=== PATIENT | male | born 1945 | race Caucasian/White ===

== ENCOUNTER 2017-01-10 21:33 | Inpatient (IN) | payer OTHER | END 2017-01-13 13:46 | disposition home or self-care (01) | DRG 308 | LOC: ER 21:33 → EROBS 23:17 → 2N 01-11 00:20 | DX: I48.0 Paroxysmal atrial fibrillation (principal); N17.0 Acute kidney failure with tubular necrosis; D68.59 Other primary thrombophilia; E87.1 Hypo-osmolality and hyponatremia; I25.10 Atherosclerotic heart disease of native coronary artery without angina pectoris; Z96.642 Presence of left artificial hip joint; J44.9 Chronic obstructive pulmonary disease, unspecified; E78.5 Hyperlipidemia, unspecified; M06.9 Rheumatoid arthritis, unspecified; E11.9 Type 2 diabetes mellitus without complications; R04.0 Epistaxis; F17.210 Nicotine dependence, cigarettes, uncomplicated; I95.9 Hypotension, unspecified; E83.42 Hypomagnesemia; Z71.6 Tobacco abuse counseling; Z95.5 Presence of coronary angioplasty implant and graft; Z85.828 Personal history of other malignant neoplasm of skin; Z88.0 Allergy status to penicillin; Z88.8 Allergy status to other drugs, medicaments and biological substances; Z82.49 Family history of ischemic heart disease and other diseases of the circulatory system ==

== ENCOUNTER 2017-08-22 01:20 | Inpatient (IN) | payer OTHER ==
[2017-08-22] VITALS (7 sets, daily range): BP systolic 95–146; BP diastolic 53–87
[~2017-08-22] VITALS: Ht 193 cm; Wt 86.6 kg
--- NOTE | ~2017-08-22 | EKG ---
[address] [address] ELECTROCARDIOGRAM REPORT Name: DOMINICK MAXWELL Room #: 350-P ADM IN M.R.#: [id number] Admission: 08/22/17 Attend Phys: Rigo Ron DO Discharge: Date of : 43 Report #: [id number] THIS REPORT FOR: //name// [facility] ED Test Date: 2017-08-22 Test Time: 01:36:30 Pat Name: DOMINICK MAXWELL Department: Room: 350 Gender: M Recep: MZRIKKI : 1945 Requested By: Tiago Mohamud Order Number: [id number] MD: Tomer Palmer Measurements Intervals [place] Rate: 121 P: 64 NE: 123 QRS: 73 QRSD: 140 T: -23 QT: 335 QTc: 476 Interpretive Statements Sinus tachycardia Probable left atrial enlargement Right bundle branch block Baseline wander in lead(s) V4 Compared to ECG 01/13/2017 06:13:34 Sinus rhythm no longer present Electronically Signed On 08-22-2017 10:59:44 CDT by Tomer Palmer [email or web address] <ELECTRONICALLY SIGNED> By: Tomer Palmer MD 08/22/17 1059 0136 0136 Tomer Palmer MD /EPI
--- NOTE | ~2017-08-22 | HC ---
[facility] [place] [address] CONSULTATION Name: DOMINICK MAXWELL Room #: 350-P ADM IN M.R.#: [id number] Admission: 08/22/17 Attend Phys: Rigo Ron DO Discharge: Date of : 43 Report #: [id number] THIS REPORT FOR: //name// CC: Rigo Almanzar DATE OF SERVICE: 08/22/2017 REASON FOR CONSULTATION: Exacerbation of chronic obstructive pulmonary disease. IMPRESSION: 1. Exacerbation of chronic obstructive pulmonary disease. 2. Question episode of transient bacteremia. 3. Leukocytosis. 4. Lactic acidosis. 5. History of atrial fibrillation. 6. Coronary artery disease. 7. Hypertension. 8. Diabetes. 9. History of tobacco use. PLAN: 1. Pulmonary toilet. 2. Aerosol therapy. 3. Flutter valve. 4. Viral panel. 5. Await cultures. We will follow closely with you. HISTORY OF PRESENT ILLNESS: A 72-year-old male who relates he had been doing well; however, developed episode of cold and chills while went out at the boats. No definite chest pain, slight shortness of breath. He does relate his grandson had cough, cold of recent. He relates he is feeling better today. No nausea or vomiting. ALLERGIES: PENICILLIN AND LIPITOR. PAST SURGICAL HISTORY: Include back surgery, left total knee replacement. MEDICATIONS: Included aspirin, metformin, Spiriva, folic acid, methotrexate, ferrous sulfate, ascorbic acid, glipizide. FAMILY HISTORY: Noncontributory. SOCIAL HISTORY: Positive tobacco, negative ETOH, negative drugs of abuse. [facility] [address] [place] [address] CONSULTATION Name: DOMINICK MAXWELL Room #: 350-P [facility] IN .R.#: [id number] Admission: 08/22/17 Attend Phys: Rigo Ron DO Discharge: Date of : 43 Report #: [id number] REVIEW OF SYSTEMS: Coronary artery disease, paroxysmal atrial fibrillation, positive carotid plaquing, rheumatoid arthritis. PHYSICAL EXAMINATION: VITAL SIGNS: T-max 99.9, pulse 94, respirations 18, BP 146/87, sat 97% on 2 liters. NEUROLOGIC: Alert and oriented. NECK: Negative JVD. LUNGS: Showed mild wheeze. HEART: Regular. ABDOMEN: Bowel sounds present. EXTREMITIES: Showed no clubbing, cyanosis or edema. LABORATORY DATA: White count 13.6, hemoglobin 12.3, platelets 302. Influenza negative. BUN 24, creatinine 1. Albumin 2.6, mag 1.4. ProBNP 339, lactate 3.6. We will follow up closely with you. By: 40 224 Brandon Causey MD /nt
[~2017-08-22 01:20] MED LIST: ACTOS 45 MG45 M1; ALEVE220 M1 PO; ALEVE220 MG PO; AMARYL4 MG PO; ASPIRIN325 PO; CLOPIDOGREL75 MG PO; CYCLOBENZAPRINE10 MG PO; FISH OIL 1,001000 MG PO; FLEXERIL PO; FOLIC ACID 1 MG1 MG PO; GLIPIZIDE 10 MG10 MG PO; GLUCOPHAGE1000 MG PO; HYDROCODON-ACE1 EAC8 PO; HYDROCODON-ACE1 EACH PO; HYDROCODONE-AP1 EAC6 PO; IRON325 PO; LANTUSSOLASTAR SUBQ; LEVAQUIN 500 M500 M2 PO; LOPRESSOR 50 MG50 M1 PO; METHOTREXATE 22.5 MG; MULTIVITAMINS1 EAC7 PO; NAPROSYN500 MG PO; NORCO 10-325 T1 EACH PO; NORCO 5-325 TA1 EACH PO; NORVASC 5 MG TAB5 MG PO; NOVOLIN N100 UNIT/1 SUBQ; PLAVIX 75 MG TA75 M1 PO; PRAVACHOL40 MG PO; PREDNISOLONE 5 M5 MG PO; PROAIR HFA8.5 GM INH; ROBAXIN 750 MG750 M1 PO; SIMVASTATIN40 MG PO; SORINE 80 MG TA80 M1 PO; SPIRIVA; SPIRIVA INH; SYMBICORT80 MCG/4.5 INH; TYLENOL325 MG PO; VITAMIN D1000 UNI1 PO; VITCB500GO PO; ZOFRAN ODT4 MG PO
[2017-08-22 02:16] LABS: ABSOLUTE NEUTROPHILS 12.5 thou/uL (1.4-8.2); BASOPHILS 0.2 % (0.0-2.0); EOSINOPHILS 0.7 % (0.0-3.0); HEMATOCRIT 35.8 % (42.0-52.0); HEMOGLOBIN 12.3 gm/dL (14.0-18.0); LYMPHOCYTES 2.6 % (24.0-44.0); MCH 31.7 pg (26.0-34.0); MCHC 34.4 g/dL (28.0-37.0); MCV 92.2 fL (80.0-100.0); MONOCYTES 4.1 % (1.0-8.0); PLATELET COUNT 302 thou/uL (150-400); POLYS 92.4 % (36.0-66.0); RBC 3.88 mil/uL (4.50-6.00); RDW 15.2 % (10.5-14.5); WBC 13.6 thou/uL (4.0-11.0)
[2017-08-22 02:17] LABS: BE(vivo) -2.6 mmol/L (-2 to +3); HCO3 20.5 mmol/L (22.0-26.0); PCO2 VENOUS 30.8 mmHg (41.0-51.0); PO2 VENOUS 55.7 mmHg (35.0-45.0)
[2017-08-22 02:24] LABS: ANION GAP 12 mmol/L (7-16); BUN 24 mg/dL (7-18); CALCIUM 8.5 mg/dL (8.5-10.1); CHLORIDE 100 mmol/L (98-107); CO2 20 mmol/L (21-32); GLUCOSE 224 mg/dL (74-106); POTASSIUM 3.9 mmol/L (3.5-5.1); SODIUM 132 mmol/L (136-145)
[2017-08-22 02:33] LABS: ALBUMIN 2.6 g/dL (3.4-5.0); MAGNESIUM 1.4 mg/dL (1.8-2.4); SGOT 18 U/L (15-37); SGPT 21 U/L (30-65); TOTAL BILIRUBIN 0.2 mg/dL (<0.1-1.0); TOTAL PROTEIN 7.3 g/dL (6.4-8.2); TROPONIN-I < 0.04 ng/mL (<0.06)
[2017-08-22 14:37] LABS: URINE BILIRUBIN NEGATIVE (Negative); URINE BLOOD TRACE (Negative); URINE CLARITY CLEAR; URINE COLOR YELLOW; URINE GLUCOSE-RANDOM* 3+ (Negative); URINE KETONES NEGATIVE (Negative); URINE LEUKOCYTES-REFLEX NEGATIVE (Negative); URINE NITRITE-REFLEX NEGATIVE (Negative); URINE PROTEIN (DIPSTICK) NEGATIVE (Negative); URINE UROBILINOGEN 0.2 E.U./dl (0.2-1.0)
[2017-08-23] VITALS (7 sets, daily range): BP systolic 119–144; BP diastolic 63–91
[2017-08-23 05:31] LABS: CALCIUM 8.4 mg/dL (8.5-10.1); CREATININE 0.8 mg/dL (0.7-1.3); MAGNESIUM 1.7 mg/dL (1.8-2.4); POTASSIUM 4.3 mmol/L (3.5-5.1)
[2017-08-23 05:49] LABS: HEMATOCRIT 31.5 % (42.0-52.0); HEMOGLOBIN 10.8 gm/dL (14.0-18.0); MCH 31.7 pg (26.0-34.0); MCHC 34.2 g/dL (28.0-37.0); MCV 92.7 fL (80.0-100.0); RBC 3.4 mil/uL (4.50-6.00); RDW 15.3 % (10.5-14.5); WBC 16.6 thou/uL (4.0-11.0)
[2017-08-24 03:50] VITALS: BP 131/76
[2017-08-24 04:40] LABS: ABSOLUTE NEUTROPHILS 12.8 thou/uL (1.4-8.2); BASOPHILS 0.2 % (0.0-2.0); HEMATOCRIT 32.5 % (42.0-52.0); MCH 31.5 pg (26.0-34.0); MCHC 33.8 g/dL (28.0-37.0); MCV 93.2 fL (80.0-100.0); PLATELET COUNT 326 thou/uL (150-400); POLYS 89.8 % (36.0-66.0); RBC 3.49 mil/uL (4.50-6.00); RDW 15.2 % (10.5-14.5); WBC 14.2 thou/uL (4.0-11.0)
[2017-08-24 05:48] LABS: CALCIUM 8.4 mg/dL (8.5-10.1); CREATININE 0.8 mg/dL (0.7-1.3); POTASSIUM 4.2 mmol/L (3.5-5.1)
[2017-08-24 08:21] VITALS: BP 148/86
[2017-08-24] MEDS ORDERED: LEVAQUIN 500 M500 M2 PO (09:12)
[2017-08-24] MEDS ORDERED: MEDROL DOSPAK21 TA1 PO (09:12)
[2017-08-24 12:06] VITALS: BP 137/71
[2017-08-24 13:34] VITALS: BP 137/71
== END 2017-08-24 15:16 | disposition home or self-care (01) | DRG 871 ==
LOC: ER 01:20 → EROBS 03:14 → 3W 03:14 → ENTRNSPT 08-24 15:05 → EDTRNSPTSTS 08-24 15:12 → 3W 08-24 15:16
PROVIDERS: Emergency Medicine; Family Medicine; Nurse Practitioner Family
DX: A41.9 Sepsis, unspecified organism (principal); J96.21 Acute and chronic respiratory failure with hypoxia; J44.1 Chronic obstructive pulmonary disease with (acute) exacerbation; E87.2 Acidosis; I25.10 Atherosclerotic heart disease of native coronary artery without angina pectoris; I48.0 Paroxysmal atrial fibrillation; E78.5 Hyperlipidemia, unspecified; E86.0 Dehydration; E11.65 Type 2 diabetes mellitus with hyperglycemia; E83.42 Hypomagnesemia; M06.9 Rheumatoid arthritis, unspecified; F17.210 Nicotine dependence, cigarettes, uncomplicated; Z96.652 Presence of left artificial knee joint; Z95.5 Presence of coronary angioplasty implant and graft; Z85.828 Personal history of other malignant neoplasm of skin; Z71.6 Tobacco abuse counseling; Z79.82 Long term (current) use of aspirin; Z79.52 Long term (current) use of systemic steroids; Z79.84 Long term (current) use of oral hypoglycemic drugs; Z79.899 Other long term (current) drug therapy; Z88.0 Allergy status to penicillin; Z88.8 Allergy status to other drugs, medicaments and biological substances
CPT/HCPCS: 10779

== ENCOUNTER → 2017-09-02 | Outpatient (CLI) | payer OTHER ==
[~2017-09-02] MED LIST changes: +MEDROL DOSPAK21 TA1 PO
== END ==
LOC: HYPER 08:37
DX: E11.622 Type 2 diabetes mellitus with other skin ulcer (principal); L97.321 Non-pressure chronic ulcer of left ankle limited to breakdown of skin; F17.210 Nicotine dependence, cigarettes, uncomplicated; J44.9 Chronic obstructive pulmonary disease, unspecified; I25.10 Atherosclerotic heart disease of native coronary artery without angina pectoris; M06.9 Rheumatoid arthritis, unspecified; F32.9 Major depressive disorder, single episode, unspecified; M19.90 Unspecified osteoarthritis, unspecified site; E78.5 Hyperlipidemia, unspecified; E78.00 Pure hypercholesterolemia, unspecified; I10 Essential (primary) hypertension; I48.0 Paroxysmal atrial fibrillation; Z79.4 Long term (current) use of insulin; Z79.84 Long term (current) use of oral hypoglycemic drugs

== ENCOUNTER → 2017-09-16 | Outpatient (CLI) | payer OTHER | LOC: HYPER 06:42 | DX: E11.622 Type 2 diabetes mellitus with other skin ulcer (principal); L97.321 Non-pressure chronic ulcer of left ankle limited to breakdown of skin; F17.200 Nicotine dependence, unspecified, uncomplicated; J44.9 Chronic obstructive pulmonary disease, unspecified; I25.10 Atherosclerotic heart disease of native coronary artery without angina pectoris; M06.9 Rheumatoid arthritis, unspecified; F32.9 Major depressive disorder, single episode, unspecified; M19.90 Unspecified osteoarthritis, unspecified site; E78.5 Hyperlipidemia, unspecified; E78.00 Pure hypercholesterolemia, unspecified; I10 Essential (primary) hypertension; I48.0 Paroxysmal atrial fibrillation; Z79.4 Long term (current) use of insulin; Z79.84 Long term (current) use of oral hypoglycemic drugs ==

== ENCOUNTER 2018-09-07 19:28 | Inpatient (IN) | payer OTHER ==
[~2018-09-07] VITALS: Ht 193 cm; Wt 86.9 kg
[2018-09-07 19:31] VITALS: BP 165/89
[2018-09-07 19:48] LABS: BE(vivo) -2.8 mmol/L (-2 to +3); HCO3 18.2 mmol/L (22.0-26.0); PO2 66.9 mmHg (80.0-100.0); pH 7.524 (7.360-7.450); sO2 95.5 % (92.0-98.0)
[2018-09-07 19:49] LABS: PCO2 22.6 mmHg (35.0-45.0)
[2018-09-07 20:04] LABS: ABSOLUTE NEUTROPHILS 8.2 thou/uL (1.4-8.2); BASOPHILS 0.5 % (0.0-2.0); EOSINOPHILS 1.4 % (0.0-3.0); HEMATOCRIT 37.5 % (42.0-52.0); HEMOGLOBIN 12.9 gm/dL (14.0-18.0); LYMPHOCYTES 4.3 % (24.0-44.0); MCH 33.4 pg (26.0-34.0); MCHC 34.4 g/dL (28.0-37.0); MONOCYTES 2.4 % (1.0-8.0); PLATELET COUNT 249 thou/uL (150-400); POLYS 91.4 % (36.0-66.0); RBC 3.87 mil/uL (4.50-6.00); RDW 15.8 % (10.5-14.5); WBC 8.9 thou/uL (4.0-11.0)
[2018-09-07 20:09] LABS: ANION GAP 16 mmol/L (7-16); APTT 27.5 Seconds (24.5-32.8); BUN 21 mg/dL (7-18); CALCIUM 8.7 mg/dL (8.5-10.1); CHLORIDE 96 mmol/L (98-107); CO2 23 mmol/L (21-32); CREATININE 1.2 mg/dL (0.7-1.3); GLUCOSE 208 mg/dL (74-106); INR 1.1; POTASSIUM 4.6 mmol/L (3.5-5.1); PROTIME 11.7 Seconds (9.3-11.4); SODIUM 135 mmol/L (136-145)
[2018-09-07 20:14] LABS: ALBUMIN 3.2 g/dL (3.4-5.0); DIRECT BILIRUBIN 0.2 mg/dL (<0.1-0.3); LIPASE 63 U/L (73-393); SGOT 30 U/L (15-37); SGPT 32 U/L (30-65); TOTAL BILIRUBIN 0.7 mg/dL (<0.1-1.0); TOTAL PROTEIN 7.6 g/dL (6.4-8.2); TROPONIN-I <0.06 ng/mL (<0.06)
--- NOTE | 2018-09-07 20:40 | NUR ---
Cardizem gtt stopped, pt sinus tach, HR 115 to 120's sbp 90's to 100. Provider updated.
[2018-09-07 20:48] LABS: URINE BILIRUBIN NEGATIVE (Negative); URINE BLOOD NEGATIVE (Negative); URINE CLARITY CLEAR; URINE COLOR YELLOW; URINE GLUCOSE-RANDOM* TRACE (Negative); URINE KETONES NEGATIVE (Negative); URINE LEUKOCYTES-REFLEX NEGATIVE (Negative); URINE NITRITE-REFLEX NEGATIVE (Negative); URINE PROTEIN (DIPSTICK) 2+ (Negative); URINE SPECIFIC GRAVITY 1.025 (1.005-1.035); URINE UROBILINOGEN 0.2 E.U./dl (0.2-1.0)
[2018-09-07 20:55] LABS: CASTS None Seen /LPF (None Seen); SQUAMOUS 0-3 Few /LPF (0-3); URINE RBC 0-2 Rare /HPF (0-2); URINE WBC-REFLEX 0-5 Rare /HPF (0-5)
[2018-09-07 20:56] LABS: BACTERIA-REFLEX None Seen /HPF (None Seen); CRYSTALS None Seen /LPF (None Seen)
[2018-09-08] VITALS (35 sets, daily range): BP systolic 109–149; BP diastolic 54–85
--- NOTE | 2018-09-08 00:30 | NUR ---
CENTRAL LINE PLACED BY DR JENSEN. BLOOD CULTURES DRAWN.
--- NOTE | 2018-09-08 00:53 | NUR ---
levophed gtt started.
--- NOTE | 2018-09-08 02:00 | NUR ---
ADMISSION NOTE: PT ADMITTED TO ICU IN FAIR CONDITION. ARRIVED WITH PATIENCE RN. PT AO. DENIED PAIN. ON LEVOPHED AT 10 MCGS. SATS ABOVE 90%. ADMISSION HX AND ASSESSMENT COMPLETED AND DOCUMENTED. MEDS RECONCILED, PT UNABLE TO REMEMBER ALL MEDS. WILL CONTINUE TO MONITOR
--- NOTE | 2018-09-08 05:50 | NUR ---
AOX4. ON RA. DENIES SOA WHILE AT REST. DENIES PAIN. ST ON THE MONITOR. OFF LEVOPHED GTT. BP STABLE. VOIDS PER URINAL. FALL PRECAUTIONS IN PLACE. NO COMPLAINS PRESENTLY. PT SLOWLY PROGRESSING TOWARDS GOALS, WILL CONTINUE TO MONITOR
--- NOTE | 2018-09-08 09:03 | EKG ---
[address] [place] [address] ELECTROCARDIOGRAM REPORT Name: DOMINICK MAXWELL Room #: 241-P ADM IN M.R.#: [id number] ������������������ Admission: 09/08/18 ������������������ Attend Phys: Jp Rodriguez Discharge: ������������������ Date of : 43 Report #: [id number] ����������������������������������������������������������������� [id number] THIS REPORT FOR: //name// [facility] ED Test Date: 2018-09-07 Test Time: 19:38:05 Pat Name: DOMINICK MAXWELL Department: Room: 241 Gender: M Chief Clinical Dietitian: TRACY : 1945 Requested By: Odessa Keita Order Number: [id number] MD: Miles Dumont Measurements Intervals [place] Rate: 137 P: 47 [place]: 120 QRS: -9 QRSD: 135 T: 106 QT: 308 QTc: 465 Interpretive Statements Sinus tachycardia Right bundle branch block Compared to ECG 08/22/2017 01:36:30 No significant change was found Electronically Signed On 09-08-2018 9:03:26 CDT by Miles Dumont [email or web address] ��������������������������������������������� <ELECTRONICALLY SIGNED> ���������������������������������������� By: Miles Dumont MD, [facility] ��������������������������������������������� 09/08/18902 37 37 Miles Dumont MD, FAC /EPI
--- NOTE | 2018-09-08 11:34 | 2DMMODE ---
[facility] [place] [place] [address] 2 D/M-MODE ECHOCARDIOGRAM Name: DOMINICK MAXWELL Room #: 241-P ADM IN M.R.#: [id number] ������������� Admission: 09/08/18 ������������� Attend Phys: Jp Gonzalez Discharge: ��� ������������� ��� Date of : 43 Date of Service: 09/08/18 1134 �� Report #: [id number] �������� ��������������������������������������������[id number] THIS REPORT FOR: //name// APPROVED REPORT Study performed: 09/08/2018 08:35:50 EXAM: Comprehensive 2D, Doppler, and color-flow Echocardiogram Patient Location: ICU Room #: 241 Status: routine BSA: 2.15 HR: 99 bpm BP: 120/71 mmHg Other Information Study Quality: Technically DifficultTechnically Limited Indications COPD Diabetes Atrial Fibrillation Dyspnea Chest Pain 2D Dimensions IVC: 16.00 mm Aortic Valve AoV Peak Evangelist.: 0.84 m/s AO Peak Gr.: 2.79 mmHg LVOT Max P.33 mmHg LVOT Max V: 0.76 m/s Left Ventricle The left ventricle is normal size. There is normal LV segmental wall motion. There is normal left ventricular wall thickness. Left ventricular systolic function is at the lower limits of normal. LVEF is 50%. Mild diastolic dysfunction is present (impaired relaxation pattern). Right Ventricle The right ventricle is normal size. The right ventricular systolic function is normal. [facility] [address] [place] [address] 2 D/M-MODE ECHOCARDIOGRAM Name: DOMINICK MAXWELL Room #: 241-P ADM IN M.R.#: [id number] ������������� Admission: 09/08/18 ������������� Attend Phys: Jp Gonzalez Discharge: ��� ������������� ��� Date of : 43 Date of Service: 09/08/18 1134 �� Report #: [id number] �������� ��������������������������������������������[id number] [place] The left atrium size is normal. The right atrium size is normal. Aortic Valve Aortic valve is mildly calcified. No aortic regurgitation is present. There is no aortic valvular stenosis. Mitral Valve The mitral valve is normal in structure. There is no mitral valve regurgitation noted. No evidence of mitral valve stenosis. Tricuspid Valve The tricuspid valve is normal in structure. There is no tricuspid valve regurgitation noted. Pulmonic Valve Pulmonic valve is not well visualized. There is no pulmonic valvular regurgitation. Great Vessels The aortic root is normal in size. IVC is normal in size and collapses >50% with inspiration. Pericardium There is no pericardial effusion. <Conclusion> Left ventricular systolic function is at the lower limits of normal. There is normal LV segmental wall motion. LVEF is 50%. Mild diastolic dysfunction Aortic valve is mildly calcified. No aortic regurgitation or stenosis. The mitral valve is normal in structure. No mitral valve regurgitation. Pulmonary artery pressure could not be reliably ascertained There is no pericardial effusion. ��������������������������������������������� <ELECTRONICALLY SIGNED> ���������������������������������������� By: Miles Dumont MD, FACC ��������������������������������������������� 04/18/19 1134 1134 1134 Miles Dumont MD, [facility] /INF
--- NOTE | 2018-09-08 16:37 | NUR ---
Chart reviewed and case discussed with the care team. Pt is improving and off gtts. He is being treated for afib and hypotension. He is a&ox4 per staff and able to make his needs known. PT eval completed today. Pt is indep with gait and adl's. He does have a cane and a rwalker if needed at home. He lives with his and has one step to enter their home. All needs on the main level. Laundry in the basement. Pt is anxious to dc home. No cm interventions indicated at this time. Pt has health insurance coverage in place for scripts and followup care as well as a PCP, Dr. Almanzar. Will remain available should dc needs arise.
--- NOTE | 2018-09-08 18:28 | NUR ---
PATIENT ALERT AND ORIENTED X4, NO COMPLAINTS OF PAIN. ON ROOM AIR. SINUS RHYTHM ON PLOW SHAKER. TOLERATING DIET WELL. UP WITH STANDBY ASSISTANCE AND WALKER, WALKED HALLWAY WITH PHYSICAL THERAPY. PATIENT AND FAMILY UPDATED ON THE PLAN OF CARE. NO SIGNS OF ACUTE DISTRESS NOTED AT THIS TIME. WILL CONTINUE TO MONITOR.
[2018-09-09] VITALS (11 sets, daily range): BP systolic 120–168; BP diastolic 55–86
--- NOTE | 2018-09-09 06:31 | NUR ---
ASSUMED PT CARE AT 1900. VSS. PT A&0X4. ASSESSMENTS AND MEDS GIVEN ARE CHARTED. PT'S MAIN CONCERN FOR THE NIGHT WAS GOING HOME. HE EXPRESSED HIS DISSATISFACTION WITH ALL THE CORDS ATTACHED TO HIM. PT SLEPT WELL ALL NIGHT, HE HAD GOOD URINE OUTPUT, HIS STRENGHT IS GOOD AND HE IS ABLE TO GET UP ON HIS OWN WITH JUST A STAND BY ASSIST. PT IS AFEBRILE, STABLE; ALTHOUGH COUGH IS STILL PRESENT, NO COMPLAINTS OF PAIN OR DISTRESS, WILL CONTINUE TO MONITOR PER POC.
--- NOTE | 2018-09-09 10:01 | NUR ---
Nutrition: pt admitted with SIRS, lactic acidosis and seen due to high risk screen for poor intake/weight loss. Pt reports a 110# weight loss over approx. 7-8 years. This was unexplained and all workup was negative. Weights stable last few years. Does have hx of DM. BG 109-350 on carb controlled diet, SSI, glipizide. Also on solumedrol. Reports appetite comes and goes. Observed 100% intake at breakfast. Pt voices no questions/concerns for RD. Low risk.
--- NOTE | 2018-09-09 11:33 | NUR ---
REPORT CALLED TO MINNA RAMIREZ - PT UPDATED ON TRANSFER PLACED IN WHEEL CHAIR AND TRANSFERRED - PLACED IN ROOM 208 - ASHLEY AWARE
--- NOTE | 2018-09-09 18:55 | NUR ---
PT TRANSFERRED TO CCU FROM ICU. MEDSURG ORDERS. NOT ON MONITOR. VSS. UP AD WALE IN ROOM. A/OX4. DENIES ANY PAIN, NEEDS OR DISCOMFORT. ACHS ACCUCHECK. INSULIN GIVEN PER SS. ID CONSULT TODAY FOR POSITIVE BLOOD CULTURES. AFEBRILE.
[2018-09-10 00:05] LABS: IgA 393 mg/dL (61-437); IgG 773 mg/dL (700-1600); IgM 139 mg/dL (15-143)
[2018-09-10 01:08] VITALS: BP 140/79
[2018-09-10 04:55] VITALS: BP 163/81
--- NOTE | 2018-09-10 05:27 | NUR ---
ASSUMED PT CARE AT 1900 AND BEDSIDE REPORT TAKEN. PT IS ALERT AND ORIENTED WITH NO SIGN OF DISTRESS NOTED IN PT. PT IS SITTING IN CHAIR. PT IS STABLE. SCHEDULED MEDS ADMINISTERED TO PT. VITAL SIGNS STABLE. PT IS STABLE THROUGHOUT THE NIGHT. PT SLEEPS, CONTINUE NURSING POC.
[2018-09-10 08:15] VITALS: BP 156/81
--- NOTE | 2018-09-10 10:35 | NUR ---
ASSUMED CARE OF PT AT SHIFT CHANGE. ASSESSMENTS CHARTED. MEDS GIVEN PER JUL. PT ALERT AND ORIENTED, VSS, NO C/O PAIN, DENIES CHEST PAIN, O2 SATS WNL ON ROOM AIR, DENIES SOB, PT UP AD WALE. APPETITE GOOD, VOIDING ADEQUATELY, BS MANAGED PER SSI AND PO GLIPIZIDE. PT QUALIFIES FOR TRANSFER FOR [facility], OKAY WITH PHYSICIAN. PT LEFT UNIT TO [facility] AT APPROX 1025 BY NURSING STAFF, ACCOMPANIED BY FAMILY. ALL BELONGINGS TAKEN WITH PT.
[2018-09-10 11:10] VITALS: BP 136/69
--- NOTE | 2018-09-10 15:19 | NUR ---
TRANSFER FROM ROOM 208. ASSUMED CARE AT 1100, SHIFT ASSESSMENT DONE, MEDS GIVEN, VSS. DENIES ANY PAIN, NAUSEA, VOMITING. UP AND WALKING IN THE ROOM AND IN THE HALLWAY. ACHS, COVERAGE GIVEN PER eMAR. WILL CONTINUE TO ASSESS AND ASSIST WITH ADLs NEEDED.
[2018-09-10 19:31] VITALS: BP 142/74
--- NOTE | 2018-09-11 03:27 | NUR ---
ASSUMED CARE OF PATIENT AT 1899. VSS. ASSESSMENT COMPLETED AT 2057 AND IS DOCUMENTED. HS BLOOD SUGAR: 236; 10 UNITS OF COVERAGE INSULIN GIVEN. RIGHT IJ TRIPLE LUMEN ASPIRATED FOR BLOOD AND FLUSHED WITHOUT DIFFICULTY. LEFT HAND IV PATENT AND SALINE LOCKED. PT CONTINUES RECEIVING BREATHING TX SCHEDULED. UP AD WALE. PT CURRENTLY SLEEPING SOUNDLY IN BED IN NO ACUTE DISTRESS. CALL LIGHT WITHIN REACH. BED LOCKED AND IN LOWEST POSITION. WCTM.
--- NOTE | 2018-09-11 04:15 | NUR ---
THIS NURSE AGREES WITH ASSESSMENT AND NOTES BY CONCRETE BOOM OPERATOR ON THIS PATIENT.
[2018-09-11 08:43] VITALS: BP 155/85
--- NOTE | 2018-09-11 10:01 | NUR ---
D/T PT'S SELF REPORT OF DECREASED/ISSUES WITH VISION PT HAS BEEN ENCOURAGED TO ASK FOR HELP WITH AMBULATION; PT DEMONSTRATED KNOWLEDGE OF USE OF CALL SYSTEM; YELLOW SOCKS ARE ON; BED IS IN LOW POSITION; PT VERBALIZED UNDERSTANDING TO ALL
--- NOTE | 2018-09-11 18:03 | NUR ---
ASSUMED CARE AT 0700, SHIFT ASSESSMENT DONE, MEDS GIVEN, VSS. DENIES ANY PAIN, NAUSEA, VOMITING. UP AD WALE. ACHS, ADVANCED TO HIGH DOSE, COVERAGE GIVEN NEEDED, SEE eMAR. DR SILVA GAVE INSTRUCTIONS TO PULL CENTRAL LINE OUT, PERFROMED DIRECTED. WILL CONTINUE TO ASSESS AND ASSIST WITH ADLs NEEDED.
[2018-09-11 18:54] VITALS: BP 142/67
--- NOTE | 2018-09-12 04:39 | NUR ---
PATIENT ALERT AND ORIENTED X4. UP ADLIB IN ROOM. AT BEDSIDE IN EARLY EVENING. IV PATIENT. DENIES PAIN. SOME SOA NOTED WITH EXERTION. BS MONITORED PER ORDER. RESTING QUIETLY.
[2018-09-12 06:37] LABS: HEMATOCRIT 34.2 % (42.0-52.0); HEMOGLOBIN 11.7 gm/dL (14.0-18.0); MCH 32.6 pg (26.0-34.0); MCHC 34.1 g/dL (28.0-37.0); MCV 95.6 fL (80.0-100.0); PLATELET COUNT 206 thou/uL (150-400); RBC 3.58 mil/uL (4.50-6.00); RDW 15.2 % (10.5-14.5); WBC 7.7 thou/uL (4.0-11.0)
[2018-09-12 06:49] LABS: ALBUMIN 2.6 g/dL (3.4-5.0); CALCIUM 8.5 mg/dL (8.5-10.1); CREATININE 0.8 mg/dL (0.7-1.3); POTASSIUM 3.5 mmol/L (3.5-5.1); TOTAL BILIRUBIN 0.3 mg/dL (<0.1-1.0); TOTAL PROTEIN 6.2 g/dL (6.4-8.2)
[2018-09-12 07:39] VITALS: BP 121/66
[2018-09-12 08:16] LABS: ABSOLUTE NEUTROPHILS 4.9 thou/uL (1.4-8.2); METAMYELOCYTES 3 %
[2018-09-12 08:17] LABS: ANISOCYTOSIS 1+; OVALOCYTES FEW
--- NOTE | 2018-09-12 08:56 | HC ---
[facility] [address] [place] [address] CONSULTATION Name: DOMINICK MAXWELL Ivy Room #: 221-P ADM IN M.R.#: [id number] Admission: 09/08/18 ������������������ Attend Phys: Jp Rodriguez Discharge: ������������������ Date of : 43 Report #: [id number] THIS REPORT FOR: //name// CC: Jp Almanzar DATE OF SERVICE: 09/09/2018 INFECTIOUS DISEASE CONSULTATION ATTENDING PHYSICIAN: Akin Joiner M.D. CONSULTATION REQUESTED BY: Jp Rodriguez M.D. REASON FOR CONSULTATION: Gram-negative zandra bacteremia. HISTORY OF PRESENT ILLNESS: A 73-year-old white man with COPD, chronic sinusitis in the past and immunosuppressed host on account of treatment for rheumatoid arthritis, presents to the Emergency Room with increasing shortness of breath, chills and production of yellowish phlegm. Today's blood cultures reveal gram-negative rods and I am asked to see the patient in consultation. PAST MEDICAL HISTORY: Chronic obstructive pulmonary disease - COPD and possibly bronchiectasis by CT scan of the chest. Hypotension. Tachycardia. Diabetes mellitus type 2. Coronary artery disease, previous coronary artery stenting. The patient relays he may have rheumatoid arthritis, on treatment with prednisone, methotrexate weekly and Levaquin versus leflunomide, I am not certain about this, most likely leflunomide. DRUG ALLERGIES: PENICILLIN, HIVES AND RASH; ATORVASTATIN, MUSCLE ACHES AND PAINS. MEDICATIONS: The patient is currently on treatment with cholecalciferol, ascorbic acid, aspirin, folic acid, glipizide, methylprednisolone 40 mg IV twice daily, enoxaparin 40 mg subq at bedtime, sotalol 80 mg p.o. b.i.d., ferrous sulfate 325 mg p.o. b.i.d., Atrovent- albuterol inhalation treatment, insulin lispro per sliding scale, p.r.n. acetaminophen, p.r.n. glucose, Glucagon and Rocephin 1 gram IV daily. SOCIAL HISTORY: See H and P, old records. FAMILY HISTORY: See H and P, old records. REVIEW OF SYSTEMS: Nothing besides chills, yellowish sputum production and [facility] [address] [place] [address] CONSULTATION Name: DOMINICK MAXWELL Room #: [address] [place] [address] [place] [facility].#: [id number] Admission: 09/08/18 ������������������ Attend Phys: Jp Rodriguez Discharge: ������������������ Date of : 43 Report #: [id number] increasing shortness of breath. Denies pain. He relates have a previous surgery to the sinuses and left total knee replacement. PHYSICAL EXAMINATION: GENERAL: A well-developed man. VITAL SIGNS: Temperature maximum 99.2; pulse 140; respirations 31; BP elevated at 165/89, subsequently 79/48. O2 saturation 100% on room air. HEENT: Within range upper and lower plates. NECK: Supple. No thyromegaly or lymphadenopathy. LUNGS: Rhonchi and crackles in the left lung posteriorly. HEART: S1, S2. No gallops. ABDOMEN: Soft. No masses or megaly. GENITALIA: Rectal exam deferred. EXTREMITIES: No pretibial edema. Surgical scar of the left total knee replacement noted. NEUROLOGIC: Grossly within normal limits. LABORATORY DATA: Sodium 135, potassium 4.6, BUN 21, creatinine 1.2 and glucose 208 and 310. Albumin 3.2 g/dL. NT-proBNP 871 pg/mL. Protime 11.7, INR 1.1. WBC 8900, hemoglobin 12.9 g/dL and platelets 249,000. White blood cell count differential revealed 91% segmented neutrophils. Urinalysis essentially normal. ABGs: A pH of 7.52, pCO2 low 22, pO2 low 66 and bicarbonate low 18.2. Lactate elevated at 3.09. This set of gases is on room air. MICROBIOLOGY DATA: Blood cultures x 2 are positive with gram-negative rods. RADIOLOGY EVALUATION: A CT scan of the chest PE protocol is negative for pulmonary embolisms and my own review of the CT revealed possible left lower lobe bronchiectatic changes, not reported. Review of all sinus CTs revealed bilateral maxillary sinusitis. Chest x-ray, no obvious pulmonary infiltrates. ASSESSMENT: 1. Gram-negative zandra bacteremia, possibly secondary to lung infection. 2. Chronic obstructive pulmonary disease - bronchiectasis. 3. Immunosuppressed host, on chronic treatment for rheumatoid arthritis with combination prednisone, methotrexate and question leflunomide. 4. Mild anemia. 5. Combined metabolic lactic acidosis and respiratory alkalosis - compensated. 6. Diabetes mellitus. 7. History of coronary artery disease. SUGGESTIONS: Recommend obtaining serum IgG, IgA and IgM levels in view of combination of bronchiectasis and chronic sinusitis. Continue with Rocephin since the patient improved on this regimen. Continue supplemental steroids. No methotrexate for the time being. [facility] [address] [place] [address] CONSULTATION Name: DOMINICK MAXWELL Room #: 221-P ADM IN M.R.#: [id number] Admission: 09/08/18 ������������������ Attend Phys: Jp Rodriguez Discharge: ������������������ Date of : 43 Report #: [id number] Rodriguez, thank you for requesting my suggestions. ��������������������������������������������� <ELECTRONICALLY SIGNED> ���������������������������������������� By: Kevin Palmer MD ��������������������������������������������� 09/12/18 0856 1205 0120 Kevin Palmer MD /nt
[2018-09-12] MEDS ORDERED: CIPRO500 MG PO (09:06)
--- NOTE | 2018-09-12 11:15 | NUR ---
ASSUMED CARE OF PATIENT THIS MORNING. PATIENT IS A&OX4. HE IS UP AD WALE. PATIENT TOLERATED MORNING MEDICATIONS. HIS BLOOD SUGAR WAS CHECKED THIS MORNING IT WAS 109, NO INSULIN WAS GIVEN. NO ABNORMAL ASSESSMENT FINDINGS. HE WILL BE DISCHARGING HOME THIS AFTERNOON. PATIENT IS CURRENTLY SITTING IN RECLINER WITH CALL LIGHT WITHIN REACH.
--- NOTE | 2018-09-12 11:45 | NUR ---
DISCHARGE NOTE: SW reviewed chart and spoke with nursing and attending physician. Pt was [facility] to [facility] and is medically stable for discharge home. Pt's family to provide transportation home. No SW discharge needs identified at this time, but is available to assist should needs arise.
[2018-09-12 14:50] VITALS: BP 121/66
--- NOTE | 2018-09-12 14:59 | NUR ---
PATIENT BEING DISCHARGE HOME WITH SELF CARE, WILL FOLLOW UP WITH PULMONARY WITHIN 1 WEEK. DISCHARGE INSTRUCTIONS REVIEWED WITH PATIENT AND PATIENT SIGNED IN AGREEMENT. PATIENT WILL GO HOME WITH 1 PRESCRIPTION FOR [facility]. [facility] WILL BE CALLED TO WHEEL PATIENT TO EXIT FOR DEPARTURE.
--- NOTE | 2018-09-12 15:39 | NUR ---
I AGREE WITH NURSING ASSESSMENT DONE BY JASON/SIENA.
== END 2018-09-12 15:11 | disposition home or self-care (01) | DRG 871 ==
LOC: ER 19:28 → EROBS 09-08 01:01 → SICU 09-08 01:01 → ICU 09-08 01:01 → 2N 09-09 11:22 → SICU 09-10 10:39 → ENTRNSPT 09-12 15:02 → EDTRNSPTSTS 09-12 15:05 → SICU 09-12 15:11
PROVIDERS: Emergency Medicine; Internal Medicine Infectious Disease; ADMIT Hospitalist
PROC: 02HV33Z Insertion of Infusion Device into Superior Vena Cava, Percutaneous Approach (ICD-10-PCS; principal; 2018-09-08)
DX: A41.51 Sepsis due to Escherichia coli [E. coli] (principal); J96.20 Acute and chronic respiratory failure, unspecified whether with hypoxia or hypercapnia; E87.2 Acidosis; J44.1 Chronic obstructive pulmonary disease with (acute) exacerbation; E27.40 Unspecified adrenocortical insufficiency; I25.10 Atherosclerotic heart disease of native coronary artery without angina pectoris; I48.0 Paroxysmal atrial fibrillation; E11.9 Type 2 diabetes mellitus without complications; Z96.652 Presence of left artificial knee joint; E78.5 Hyperlipidemia, unspecified; D64.9 Anemia, unspecified; J32.0 Chronic maxillary sinusitis; M06.9 Rheumatoid arthritis, unspecified; F17.210 Nicotine dependence, cigarettes, uncomplicated; Z85.828 Personal history of other malignant neoplasm of skin; Z95.5 Presence of coronary angioplasty implant and graft; Z79.82 Long term (current) use of aspirin; Z79.84 Long term (current) use of oral hypoglycemic drugs; Z79.899 Other long term (current) drug therapy; Z88.0 Allergy status to penicillin; Z88.8 Allergy status to other drugs, medicaments and biological substances
CPT/HCPCS: 10078; 10081; 15002

== ENCOUNTER 2018-10-04 00:27 | Inpatient (IN) | payer OTHER ==
[~2018-10-04] VITALS: Ht 190.5 cm; Wt 80.7 kg
[2018-10-04] VITALS (10 sets, daily range): BP systolic 108–185; BP diastolic 60–99
[~2018-10-04 00:27] MED LIST changes: +CIPRO500 MG PO; -PREDNISOLONE 5 M5 MG PO; +PREDNISONE 5 MG5 MG PO
[2018-10-04] MEDS ORDERED: TRULICITY1.5 MG/0.5 SUBQ (01:18)
[2018-10-04] MEDS ORDERED: TRELEGY ELLIPT1 EACH INH (01:18)
[2018-10-04] MEDS ORDERED: HYDROXYCHLOROQ200 M1 PO (01:20)
[2018-10-04] MEDS ORDERED: LEFLUNOMIDE 1010 MG PO (01:21)
[2018-10-04] MEDS ORDERED: METHOTREXATE 22.5 MG PO (01:22)
[2018-10-04] MEDS ORDERED: TRAMADOL 50 MG50 MG PO (01:23)
[2018-10-04 01:46] LABS: ABSOLUTE NEUTROPHILS 10.8 thou/uL (1.4-8.2); BASOPHILS 0.5 % (0.0-2.0); EOSINOPHILS 0.9 % (0.0-3.0); HEMATOCRIT 36.4 % (42.0-52.0); MCH 30.8 pg (26.0-34.0); MCHC 33.1 g/dL (28.0-37.0); MCV 93.2 fL (80.0-100.0); MONOCYTES 2.5 % (1.0-8.0); PLATELET COUNT 289 thou/uL (150-400); POLYS 92.1 % (36.0-66.0); RDW 15.6 % (10.5-14.5); WBC 11.7 thou/uL (4.0-11.0)
[2018-10-04 01:49] LABS: URINE BILIRUBIN NEGATIVE (Negative); URINE BLOOD TRACE (Negative); URINE CLARITY CLEAR; URINE COLOR YELLOW; URINE GLUCOSE-RANDOM* TRACE (Negative); URINE KETONES NEGATIVE (Negative); URINE LEUKOCYTES-REFLEX NEGATIVE (Negative); URINE NITRITE-REFLEX NEGATIVE (Negative); URINE PROTEIN (DIPSTICK) 1+ (Negative); URINE SPECIFIC GRAVITY 1.025 (1.005-1.035); URINE UROBILINOGEN 0.2 E.U./dl (0.2-1.0)
[2018-10-04 01:53] LABS: ANION GAP 9 mmol/L (7-16); BUN 15 mg/dL (7-18); CALCIUM 9.2 mg/dL (8.5-10.1); CHLORIDE 101 mmol/L (98-107); CO2 26 mmol/L (21-32); GLUCOSE 213 mg/dL (74-106); POTASSIUM 4.5 mmol/L (3.5-5.1); SODIUM 136 mmol/L (136-145)
[2018-10-04 02:03] LABS: ALBUMIN 2.9 g/dL (3.4-5.0); DIRECT BILIRUBIN < 0.1 mg/dL (<0.1-0.3); SGOT 26 U/L (15-37); SGPT 35 U/L (30-65); TOTAL BILIRUBIN 0.3 mg/dL (<0.1-1.0); TOTAL PROTEIN 7.6 g/dL (6.4-8.2); TROPONIN-I <0.06 ng/mL (<0.06)
[2018-10-04 02:04] LABS: BACTERIA-REFLEX 1-9 Few /HPF (None Seen); CRYSTALS None Seen /LPF (None Seen); SQUAMOUS 0-3 Few /LPF (0-3); URINE RBC 3-10 Few /HPF (0-2); URINE WBC-REFLEX 0-5 Rare /HPF (0-5)
--- NOTE | 2018-10-04 06:28 | NUR ---
TO ICU WITH SHOES AND PHONE. PT'S TOOK REST OF BELONGINGS HOME.
--- NOTE | 2018-10-04 06:40 | NUR ---
PT ARRIVED FROM ED AT 0630. PT HOOKED UP TO TELE MONITOR. VSS. PT ALERT AND ORIENTED. WITHDRAWN. HE REFUSES TO ANSWER SOME QUESTIONS REGARDING EVENTS LEADING TO HOSPITALIZATION. PT WAS ABLE TO TRANSFER FROM ED TO ICU BED. PER ER NURSE "THIS IS AN IMPROVEMENT." PT SR/ST ON THE MONITOR. PT DOES HAVE A HX OF A-FIB. DENIES ANY PAIN AT THIS TIME. O2 SAT WNL ON RA. BP STABLE. WILL CONTINUE TO MONITOR PT.
--- NOTE | 2018-10-04 11:09 | NUR ---
PATIENT ADMITTED FROM ED DEPARTMENT THIS MORNING, ALERT AND ORIENTED X4, NO COMPLAINTS OF PAIN.SINUS RHYTHM ON EDGE DRUMMER. ON ROOM AIR. TOLERATING DIET. BLOOD SUGAR MONITORED. PATIENT EDUCATED ON FALL PRECATIONS, ORIENTED TO UNIT. PATIENT REFUSING TO WEAR HOSPITAL SOCKS, SHOES APPLIED. BED AND CHAIR ALARM ENABLED. REPORT GIVEN TO ONCOMING NURSE. NO SIGNS OF ACUTE DISTRESS NOTED AT THIS TIME. PATIENT TRANSFERRED TO [facility].
--- NOTE | 2018-10-04 19:38 | NUR ---
PT REPORTS FEELIN VERY WEAK LAST NIGHT WHEN HE WAS IN HIS BATHROOM..HE FELL BUT DENIED HITTING HEAD...REPORTS HE FEELS MUCH STRONGER TODAY...
[2018-10-05 00:11] VITALS: BP 161/92
[2018-10-05 03:54] VITALS: BP 153/76
--- NOTE | 2018-10-05 04:45 | NUR ---
ASSUMED PT CARE AROUND 1900. A&OX4. DENIES ANY PAIN OR SOA. UP W/ SBA AND WALKER. PT SLEPT MOST OF THE NIGHT. RESP EVEN AND UNLABORED. BP WAS ELEVATED EARLIER IN THE NIGHT, BUT IMPROVED WITH SCHEDULED MEDICATION. AFEBRILE. FALL PRECAUTIONS IN PLACE. NO MAJOR COMPLAINTS THIS SHIFT. WEAKNESS APPEARS TO HAVE IMPROVED SOME. PROGRESSING TOWARD POC GOALS. WILL CONTINUE TO MONITOR FURTHER.
[2018-10-05 05:46] LABS: HEMATOCRIT 31.5 % (42.0-52.0); HEMOGLOBIN 10.7 gm/dL (14.0-18.0); MCH 31.4 pg (26.0-34.0); MCV 92.5 fL (80.0-100.0); RBC 3.41 mil/uL (4.50-6.00); RDW 15.4 % (10.5-14.5)
[2018-10-05 05:53] LABS: CALCIUM 8.2 mg/dL (8.5-10.1); CREATININE 0.7 mg/dL (0.7-1.3); POTASSIUM 3.4 mmol/L (3.5-5.1)
[2018-10-05 07:21] VITALS: BP 147/76
--- NOTE | 2018-10-05 08:23 | HC ---
[facility] [place] [address] CONSULTATION Name: DOMINICK MAXWELL Room #: 364-P ADM IN M.R.#: [id number] Admission: 10/04/18 ������������������ Attend Phys: Kai Perez MD Discharge: ������������������ Date of : 44 Report #: [id number] THIS REPORT FOR: //name// CC: Kai Almanzar DATE OF SERVICE: 10/04/2018 ATTENDING PHYSICIAN: Dr. Almanzar, HOSPITALIST: Dr. My Montoya. REASON FOR CONSULTATION: Fever. HISTORY OF PRESENT ILLNESS: A 73-year-old white male recently discharged from [facility] after being diagnosed to have Escherichia coli bacteremia, undetermined source. No urine culture done at that time. The patient was treated with Rocephin, was discharged on 10 days of Cipro with improvement of sinus problem. The patient denies having any headaches, sore throat, respiratory symptoms of any sort, chest pain, but he tells me he had frequent urination. No dysuria. Recently seen by Dr. Luis Almanzar this past Wednesday and he was seen by Dr. Almanzar early this morning was not advised of any new findings during laboratory testing last week. The patient is feeling better. Denies any problems at present time. Relates that he fell, but did not hurt himself. The problem was he can get out of the toilet and his legs were extremely weak. He fell backwards, did not hurt himself. PAST MEDICAL HISTORY: Atrial fibrillation, rapid ventricular response. COPD, chronic bronchiectasis. History of chronic sinusitis. Coronary artery disease, previous stenting. Lumbar spondylosis. 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 Diabetes mellitus. Previous wrist fracture. Rheumatoid arthritis, on prednisone and methotrexate -- immunocompromised host. DRUG ALLERGIES: PENICILLIN, HIVES, RASH. ATORVASTATIN. MEDICATIONS: The patient is currently on treatment with meropenem 500 mg IV every 8 hours, Levaquin 750 mg IV daily, hydrocortisone 100 mg IV every 8 hours, enoxaparin 40 mg at bedtime, sotalol 80 mg p.o. b.i.d., famotidine 20 mg p.o. b.i.d., insulin lispro per sliding scale a.c. and at bedtime, albuterol inhalation treatment, p.r.n. Levophed, glucagon, glucose currently. No pressors. SOCIAL HISTORY: See H and P, old records. FAMILY HISTORY: See H [place] [address] CONSULTATION Name: DOMINICK MAXWELL Room #: 364-P [facility] IN ..#: [id number] Admission: 10/04/18 ������������������ Attend Phys: Kai Perez MD Discharge: ������������������ Date of : 44 Report #: [id number] REVIEW OF SYSTEMS: As above. PHYSICAL EXAMINATION: GENERAL: Well-developed, chronically ill-appearing white man. VITAL SIGNS: Temperature 103.1, pulse 115, BP 179/91, respirations 34 at ____ hours today in the Emergency Room. Currently, temperature is 98.5, pulse 96, respirations 16, BP 128/67. HEENT: Pupils equal and reactive. Mouth edentulous. NECK: Supple, no thyromegaly. LUNGS: Clear to auscultation. HEART: S1, S2. No gallop or murmur. ABDOMEN: Soft, no masses or megaly. GENITALIA AND RECTAL: Deferred. EXTREMITIES: No clubbing, cyanosis. NEUROLOGIC: Grossly within normal limits. LABORATORY DATA: The following abnormals detected. Glucose 210, albumin 2.9 g/dL. Lactic acid 4.3 millimoles per liter. NT-proBNP 2028. WBC 11.7, hemoglobin 12 g/dL. White blood cell count differential 92% segmented neutrophils. The urinalysis revealed the following abnormalities: Proteinuria, trace glucose, trace blood. Microscopic exam revealed microscopic hematuria and bacteriuria. No urine culture obtained. Blood cultures negative so far. RADIOLOGY EVALUATION: Chest x-ray revealed chronic findings, cardiomegaly, and enlargement of the thoracic aorta. ASSESSMENT: 1. Febrile illness with frequent urination, abnormal urinalysis entertained possibly due to acute pyelonephritis. 2. Prostatitis. 3. Recent Escherichia coli bacteremia, undetermined source. 4. Immunocompromised host, on prednisone, methotrexate for rheumatoid arthritis. 5. Chronic obstructive pulmonary disease, bronchiectasis. 6. Chronic sinusitis. 7. Coronary artery disease. 8. PENICILLIN, ATORVASTATIN ALLERGY/INTOLERANCE. SUGGESTIONS: Recommend discontinue Levaquin and continue meropenem. I agree with transfer out of the ICU. If possible, we will obtain urine culture. Already obtained urinalysis in the Emergency Room. Otherwise, the urine culture will be negative since already on 2 powerful antibiotics. [facility] [address] [place] [address] CONSULTATION Name: DMOINICK MAXWELL Room #: 364-P ADM IN M.R.#: [id number] Admission: 10/04/18 ������������������ Attend Phys: Kai Perez MD Discharge: ������������������ Date of : 44 Report #: [id number] Montoya, thank you for requesting my suggestions. ��������������������������������������������� <ELECTRONICALLY SIGNED> ���������������������������������������� By: Kevin Palmer MD ��������������������������������������������� 10/05/18 0823 0950 00 Kevin Palmer MD /nt
[2018-10-05 11:17] VITALS: BP 149/84
--- NOTE | 2018-10-05 15:40 | NUR ---
INITIAL ASSESSMENT: Received consult. SW reviewed chart and spoke with nursing and attending physician. Pt was admitted from his PCP's office due to fever and recurrent infection. ID consulted. SW met with pt and spouse at bedside. Introduced role of SW. Pt is alert/orientated x 4. Pt and spouse live at home. Prior to admission, pt was independent with ADLs. Pt does ahve a cane and walker to use at home if needed. Pt has had a couple of falls in the past year. Pt's PCP is Dr. Almanzar. No hx of services or SNF/Rehab placement. Discharge plan is for pt to return home when medically stable. SW is following to assist as needed with discharge planning.
[2018-10-05 16:23] VITALS: BP 133/82
[2018-10-05 19:39] VITALS: BP 126/65
--- NOTE | 2018-10-05 20:00 | NUR ---
PT WILL MOST LIKELY DISCHARGE TO HOME WITH SPOUSE TOMORROW...WILL MONITOR..
[2018-10-06] VITALS (8 sets, daily range): BP systolic 125–127; BP diastolic 61–77
[2018-10-06] MEDS ORDERED: LEVAQUIN 500 M500 M1 PO (10:46)
--- NOTE | 2018-10-06 12:58 | NUR ---
PT DISCHARGED TO HOME WITH SPOUSE...VSS..RX GIVEN FOR LEVAQUIN X [address] DA[address]..FO[address] UP [address] IBARRA IN 2 WEEKS...
== END 2018-10-06 13:00 | disposition home or self-care (01) | DRG 864 ==
LOC: ER 00:27 → EROBS 03:28 → ICU 03:28 → 3W 03:28 → EROBS 04:43 → ICU 06:29 → 3W 11:00 → ENTRNSPT 10-06 12:33 → EDTRNSPTSTS 10-06 12:41 → 3W 10-06 13:00
PROVIDERS: Emergency Medicine; Nurse Practitioner Family; ADMIT Hospitalist
DX: R50.9 Fever, unspecified (principal); R65.10 Systemic inflammatory response syndrome (SIRS) of non-infectious origin without acute organ dysfunction; E87.2 Acidosis; I25.10 Atherosclerotic heart disease of native coronary artery without angina pectoris; I48.2 Chronic atrial fibrillation; E11.9 Type 2 diabetes mellitus without complications; Z96.652 Presence of left artificial knee joint; J43.9 Emphysema, unspecified; E78.5 Hyperlipidemia, unspecified; M06.9 Rheumatoid arthritis, unspecified; I95.9 Hypotension, unspecified; N41.9 Inflammatory disease of prostate, unspecified; R35.0 Frequency of micturition; J32.9 Chronic sinusitis, unspecified; J47.9 Bronchiectasis, uncomplicated; F17.210 Nicotine dependence, cigarettes, uncomplicated; R00.0 Tachycardia, unspecified; Z96.659 Presence of unspecified artificial knee joint; M19.90 Unspecified osteoarthritis, unspecified site; Z95.5 Presence of coronary angioplasty implant and graft; Z88.0 Allergy status to penicillin; Z88.8 Allergy status to other drugs, medicaments and biological substances; Z87.81 Personal history of (healed) traumatic fracture; Z79.82 Long term (current) use of aspirin; Z79.899 Other long term (current) drug therapy
CPT/HCPCS: 10879

== ENCOUNTER 2018-10-09 04:58 | Inpatient (IN) | payer OTHER ==
[~2018-10-09] VITALS: Ht 190.5 cm; Wt 88.3 kg
--- NOTE | ~2018-10-09 | HC ---
[facility] [place] [address] CONSULTATION Name: DOMINICK MAXWELL Room #: 361-P [facility] IN ..#: [id number] Admission: 10/09/18 ������������������ Attend Phys: Redd Shah MD Discharge: ������������������ Date of : 44 Report #: [id number] THIS REPORT FOR: //name// CC: Redd Almanzar DATE OF SERVICE: 10/09/2018 CONSULTATION: Infectious diseases. HISTORY OF PRESENT ILLNESS: The patient is a 73-year-old white male who comes to the hospital with concerns about recurring sepsis. The patient became very ill and was hospitalized September 08 to September 12. At that time, he had E. coli in 4 blood cultures. No source was apparent. The patient was discharged on Cipro. He completed a 10-day course of Cipro, but then 3 days later, again had fevers, chills, malaise. He came back to the hospital, October 04 to October 06. At that time, he had evidence of sepsis, but cultures were negative. He was discharged on Levaquin. He did miss one day on the with the discharge arrangements, but said he had been taking the medication regularly on an empty stomach since then. The patient noted the night prior to admission that he felt badly. He had fevers, chills and malaise. He felt no better in the morning, so he came to the emergency room where he was noted to have low fever, lactic acidosis, and was readmitted. Infectious disease consultation was requested for further followup. PAST MEDICAL HISTORY: Significant for diabetes, hyperlipidemia, rheumatoid arthritis, on methotrexate and prednisone (which are currently on hold), paroxysmal atrial fibrillation, coronary artery disease and COPD. ALLERGIES: He notes history of PENICILLIN allergy to intolerance to LIPITOR. MEDICATION: Current medication reconciliation includes Levaquin IV, glipizide 10 mg daily, prednisone 5 mg daily, tamsulosin 0.4 mg daily, hydroxychloroquine 200 mg daily, sotalol 80 mg b.i.d., DuoNeb, insulin sliding scale, Glucagon as needed, Tylenol p.r.n., MiraLax p.r.n., Zofran p.r.n., tramadol p.r.n., potassium p.r.n. FAMILY HISTORY: Noncontributory. SOCIAL HISTORY: The patient is and lives with his . 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 He does continue to smoke cigarettes about a half pack per day. No history of alcohol nor drugs. REVIEW OF SYSTEMS: The patient complains of generalized malaise associated with fevers, chills with true rigors. The patient denies any headache, sinus congestion, oral pain, mucous membrane discomfort, sore throat, trouble swallowing. He denies any cognitive dysfunction. The patient denies cough, [facility] [address] [facility] [place] [address] CONSULTATION Name: DOMINICK MAXWELL Room #: 361-P [facility] IN M..#: [id number] Admission: 10/09/18 ������������������ Attend Phys: Redd Shah MD Discharge: ������������������ Date of : 44 Report #: [id number] chest pain or shortness of breath. The patient denies nausea or vomiting. He is having bowel movements. No abdominal pain. The patient has low back pain, but said this is chronic and not really different than his baseline. The patient notes increased frequency of urination. He denies painful urination. He has had some incontinence with frequency. The patient has baseline joint pain. PHYSICAL EXAMINATION: GENERAL: The patient appears elderly, frail, but not uncomfortable nor in distress. VITAL SIGNS: Show the patient was afebrile at the time of my examination, but a maximum temperature recorded by nurse was measured at 100.7. He did have a blood pressure as low as 86/52, but both of his blood pressures have been normothermic with reading such as 113/57. SKIN: Somewhat sallow without rashes, lesions, wounds or exanthems. ENT: Shows some angular cheilosis and edentulous gums. There is minimal coating on the tongue. The patient is not complaining of any symptoms from this. NECK: Supple. MENTAL STATUS: Awake, alert, appropriate and cogent. HEART: Sounds S1, S2. LUNGS: Clear to anterior auscultation. ABDOMEN: Belly is soft, nontender, without mass nor organomegaly. EXTREMITIES: Unremarkable. [place]ATORY [place] [address], hemoglobin 11.1, platelets 263081. Electrolytes, BUN and creatinine are normal. The lactate was 4.4 initially in the ER, down to 2.0 with hydration. The urinalysis shows only 0-3 white cells. IMAGING DATA: The radiology department report: The portable chest x-ray showed scattered interstitial prominence without any infiltrates. ASSESSMENT: In summary, the patient had high-grade E. coli bacteremia on September 08. He appeared to have relapse with infection and was readmitted on October 04 after he stopped antibiotics. That workup was negative for infection. He was discharged on antibiotics and now presents with another episode of sepsis with fevers, chills, malaise, leukocytosis, lactic acidemia. One has presumed that the patient continues to have an E. coli infection, which has not adequately responded to antibiotics. His urine appears unremarkable, although he is somewhat symptomatic with urinary frequency. We will need to consider the abdomen and pelvis as the most likely source of E. coli. I suggest we treat the patient with Rocephin. Based on the previous cultures, this would have excellent activity against the organism. It may have better penetration than Levaquin into such as prostate, MILK DRIVER etc. I would like to do a [facility] [address] [place] [address] CONSULTATION Name: DOMINICK MAXWELL Room #: 361-P [facility] IN [facility].#: [id number] Admission: 10/09/18 ������������������ Attend Phys: Redd Shah MD Discharge: ������������������ Date of : 44 Report #: [id number] scan of the abdomen and pelvis. This could screen for diverticulitis with abscess, cholecystitis or kidney stones. We would also give some imaging of the lumbar spine. It is that MRI scan may be better for soft tissue changes, but we can at least really screen with a CT of the abdomen and pelvis. I appreciate the opportunity to offer input in the care of this pleasant gentleman. Dr. Palmer will return tomorrow for additional followup. Thank you again for consulting us. ��������������������������������������������� ���������������������������������������� By: ��������������������������������������������� 30 0547 Luigi Meade MD /nt
--- NOTE | ~2018-10-09 | HC ---
[facility] [place] [address] CONSULTATION Name: DOMINICK MAXWELL Ivy Room #: 215-P ADM IN M.R.#: [id number] Admission: 10/09/18 ������������������ Attend Phys: Redd Shah MD Discharge: ������������������ Date of : 44 Report #: [id number] THIS REPORT FOR: //name// CC: Miles Dumont MD [facility] Kevin Almanzar MD REASON FOR CONSULTATION: The patient is a 73-year-old male with evidence of Bacteroides bacteremia. HISTORY OF PRESENT ILLNESS: This 73-year-old male has a history of multiple medical problems including atrial fibrillation, coronary artery disease with stents, COPD, rheumatoid arthritis, on chronic steroids and diabetes. He developed chills and generalized weakness in August of this year and was admitted to [facility] and was found to have E. coli in multiple blood cultures. He was treated and was discharged on Cipro and completed Cipro at home. However, within about 3-4 days, he developed recurrent symptoms, readmitted to [facility] once again for treatment of sepsis. On that occasion, his blood cultures were negative. He was switched to Levaquin and sent home and had symptoms again and is admitted for the third time for treatment of sepsis. On this occasion, blood cultures were positive for Bacteroides fragilis. He is currently undergoing antibiotic treatment for his Bacteroides bacteremia. Due to the Bacteroides, GI evaluation is requested. The patient's GI history is notable for colonoscopy and upper endoscopy done in 03/2012 for problems with weight loss. Colonoscopy revealed multiple small polyps. I believe he had 6 polyps removed. The procedure report is in the computer system, but I cannot find the pathology report. He also had sigmoid diverticular disease and internal hemorrhoids. On the same date, an upper endoscopy was completed and he was found to have a grade A esophagitis and otherwise an unremarkable upper endoscopy. The patient reports he has had regular bowel habits. He denies problems with diarrhea, constipation or rectal bleeding. It is noted he had sigmoid diverticular disease and has never had an episode of diverticulitis or significant abdominal pain. During this admission, due to his recurrent infections, a CT abdomen and pelvis was done with contrast. He does have diverticular disease, but there is no evidence of diverticulitis. However, the patient was noted to have a focal thrombus in the extrahepatic portal venous system. This was not noted on a CAT scan done in August of this year. Again, he denies abdominal pain. There is no history of liver disease. He has never consumed much alcohol. There is no family history of liver disease. It is noted that in the computer database, his AST and ALT have been normal dating back to 2011, alkaline phosphatase during [address] [address] CONSULTATION Name: DOMINICK MAXWELL Room #: 215-P [facility] IN M.R.#: [id number] Admission: 10/09/18 ������������������ Attend Phys: Redd Shah MD Discharge: ������������������ Date of : 44 Report #: [id number] the same period of time has been normal and likewise for the bilirubin. PAST MEDICAL HISTORY: He has coronary artery disease and multiple coronary artery stents. He also has atrial fibrillation. He is not on anticoagulants. He has chronic obstructive pulmonary disease and was smoking up to the time of this admission. He has history of rheumatoid arthritis, on methotrexate and steroids. He has diabetes mellitus and also elevation of lipids. He has had back disease as well. PAST SURGICAL HISTORY: He has had back surgeries x 2. He has also had a left total knee replacement. ALLERGIES: PENICILLIN AND LIPITOR. MEDICATIONS: Usual home medications reviewed with the patient. He takes prednisone 5 mg daily, aspirin 325 mg daily, he stopped recently due to recurrent nosebleeds; metformin 1000 mg twice daily, Aleve 220 mg daily, folic acid 1 mg daily, Trulicity 1.5 mg subcutaneous weekly, Trelegy inhalation daily, Plaquenil 200 mg daily, leflunomide 10 mg daily, methotrexate 2.5 mg 9 tablets once weekly, tramadol 50 mg as needed, tamsulosin 0.4 mg as needed, pravastatin 40 mg daily, ProAir inhaler 2 puffs q. 4 hours as needed, glipizide 10 mg daily. He takes a multivitamin and folic acid. FAMILY HISTORY: No family history of colon cancer, ulcer disease, Crohn's disease, liver disease or cirrhosis. SOCIAL HISTORY: . He has been a long-term cigarette smoker. He infrequently consumes alcohol. REVIEW OF SYSTEMS: GENERAL: No change in weight, fever or chills. CENTRAL NERVOUS SYSTEM: No focal weakness, numbness, loss of consciousness, seizures or strokes. HEENT: He has had cataract surgery. No change in vision, hearing, or sores in the mouth. PULMONARY: Chronic lung disease. No history of tuberculosis. CARDIOVASCULAR: He has coronary artery stents and AFib. No chest pain or chest tightness at this time. GASTROINTESTINAL: No nausea, vomiting, hematemesis or dysphagia. He has not had diarrhea or rectal bleeding. He has had colon polyps in the past. He has never had diverticulitis. GENITOURINARY: He is on tamsulosin, not aware of any kidney problems or kidney stones. No hematuria. MUSCULOSKELETAL: Chronic rheumatoid arthritis, on chronic therapy; back disease and previous knee replacement. SKIN: He has had skin cancers removed. [facility] [address] [address] CONSULTATION Name: DOMINICK MAXWELL Room #: 215-P [facility] IN [facility].#: [id number] Admission: 10/09/18 ������������������ Attend Phys: Redd Shah MD Discharge: ������������������ Date of : 44 Report #: [id number] PSYCHIATRIC: No depression, anxiety or bipolar illness. ENDOCRINE: Diabetes. He is not aware of other hormonal disease, such as thyroid disease. He has been on steroids chronically. HEMATOLOGIC: Skin cancers. No bleeding problems. No previous history of clots. PHYSICAL EXAMINATION: GENERAL: The patient is well-developed, well-nourished, pleasant male who is awake, alert and oriented, in no acute distress. VITAL SIGNS: Blood pressure 106/45, pulse 78 and regular. HEENT: Anicteric. Pupils equal and round. Oropharynx clear. NECK: Supple without thyromegaly. CHEST: Clear. HEART: Regular rate and rhythm, normal S1 and S2. ABDOMEN: Normal bowel sounds, soft, nontender, without hepatosplenomegaly or masses. I do not appreciate hepatomegaly. RECTAL: Not done. EXTREMITIES: Without cyanosis, clubbing, edema. NEUROLOGIC: Oriented to person, place, time. He moves all 4 extremities well. LABORATORY DATA: White count of 7.2, hemoglobin 10.3, platelet count 188,000. Sodium 139, potassium 3.4, chloride 104, CO2 of 26, BUN of 10, creatinine 0.7, hemoglobin A1c of 7.1. Lactic acid on admission was 2.8, calcium 7.5. LFTs are normal. C-reactive protein elevated at 128, albumin 2.5, cholesterol 182, lipase of 47. TB spot negative. ASSESSMENT: 1. Bacteroides bacteremia and history of sepsis. 2. Rheumatoid arthritis, on immunosuppression. 3. Coronary artery disease, stable. 4. Chronic obstructive pulmonary disease. 5. Thrombus, portal vein. 6. Diabetes. 7. Diverticulosis coli. 8. History of colon polyps. PLAN: 1. Colonoscopy planned for tomorrow, discussed rationale with the patient. He is agreeable, would like to go ahead and proceed. 2. Review CT images with invasive radiologist with regards to portal vein thrombosis, question of need to anticoagulate. ��������������������������������������������� ���������������������������������������� By: ��������������������������������������������� 1317 15 Luigi Barros MD /nt
[~2018-10-09 04:58] MED LIST changes: +HYDROXYCHLOROQ200 M1 PO; +LEFLUNOMIDE 1010 MG PO; +LEVAQUIN 500 M500 M1 PO; +METHOTREXATE 22.5 MG PO; +TRAMADOL 50 MG50 MG PO; +TRELEGY ELLIPT1 EACH INH; +TRULICITY1.5 MG/0.5 SUBQ
[2018-10-09 04:59] VITALS: BP 100/52
[2018-10-09 05:23] LABS: ABSOLUTE NEUTROPHILS 15.3 thou/uL (1.4-8.2); BASOPHILS 0.2 % (0.0-2.0); EOSINOPHILS 0.5 % (0.0-3.0); HEMATOCRIT 32.7 % (42.0-52.0); HEMOGLOBIN 11.1 gm/dL (14.0-18.0); LYMPHOCYTES 2.4 % (24.0-44.0); MCH 31.2 pg (26.0-34.0); MCHC 33.9 g/dL (28.0-37.0); MCV 91.9 fL (80.0-100.0); MONOCYTES 1.4 % (1.0-8.0); PLATELET COUNT 276 thou/uL (150-400); POLYS 95.5 % (36.0-66.0); RBC 3.56 mil/uL (4.50-6.00); RDW 15.3 % (10.5-14.5)
[2018-10-09] MEDS ORDERED: FLOMAX0.4 MG PO (05:25)
[2018-10-09 05:31] LABS: CALCIUM 8.2 mg/dL (8.5-10.1); CREATININE 0.9 mg/dL (0.7-1.3); POTASSIUM 3.3 mmol/L (3.5-5.1)
[2018-10-09 05:37] LABS: ALBUMIN 2.5 g/dL (3.4-5.0); DIRECT BILIRUBIN 0.1 mg/dL (<0.1-0.3); TOTAL BILIRUBIN 0.4 mg/dL (<0.1-1.0); TOTAL PROTEIN 6.3 g/dL (6.4-8.2)
[2018-10-09 06:38] LABS: URINE BILIRUBIN NEGATIVE (Negative); URINE BLOOD NEGATIVE (Negative); URINE CLARITY CLEAR; URINE COLOR YELLOW; URINE GLUCOSE-RANDOM* NEGATIVE (Negative); URINE KETONES NEGATIVE (Negative); URINE LEUKOCYTES-REFLEX NEGATIVE (Negative); URINE NITRITE-REFLEX NEGATIVE (Negative); URINE PROTEIN (DIPSTICK) 1+ (Negative); URINE SPECIFIC GRAVITY 1.015 (1.005-1.035); URINE UROBILINOGEN 0.2 E.U./dl (0.2-1.0)
[2018-10-09 06:46] LABS: CASTS None Seen /LPF (None Seen); CRYSTALS None Seen /LPF (None Seen); SQUAMOUS 0-3 Few /LPF (0-3); URINE RBC None Seen /HPF (0-2)
[2018-10-09 06:47] LABS: BACTERIA-REFLEX 1-9 Few /HPF (None Seen); URINE WBC-REFLEX 0-5 Rare /HPF (0-5)
[2018-10-09 08:44] VITALS: BP 104/58
--- NOTE | 2018-10-09 08:48 | NUR ---
BREAKFAST TRAY ORDERED TO ROOM 361
--- NOTE | 2018-10-09 09:01 | NUR ---
VIVIANE GARCIA RN WILL CALL ME BACK SHE IS IN A ROOM
[2018-10-09 09:20] VITALS: BP 113/57
--- NOTE | 2018-10-09 10:21 | NUR ---
report received from Brandi/jennifer in er @ 0917. pt received to room 361 @ 0955 via stretcher, pt able to stand and walk to his bed. pt voided while standing using urinal. pt aox4, co soa (on room air w/ o2 sat of 95-98%), pt denies co pain at this time, but states he does have chronic back pain for which he takes Tramadol (x2 pill/daily). pt co tired and sleepy, request to nap after admission complete. pt states his has gone home to rest and complete errands this am, but return later today.
--- NOTE | 2018-10-09 15:46 | NUR ---
pt made aware of our unit's technical difficulty w/ our heart monitors. he states he dealt with the same issue on his last admission. pt given our print out (on [facility] letter head) to read and a copy placed in his room/361.
[2018-10-09 16:34] VITALS: BP 152/74
--- NOTE | 2018-10-09 22:41 | EKG ---
[address] [address] ELECTROCARDIOGRAM REPORT Name: DOMINICK MAXWELL Room #: 361-P [facility] IN [facility]#: [id number] ������������������ Admission: 10/09/18 ������������������ Attend Phys: Redd Shah MD Discharge: ������������������ Date of : 44 Report #: [id number] ����������������������������������������������������������������� [id number] THIS REPORT FOR: //name// [facility] ED Test Date: 2018-10-09 Test Time: 05:05:47 Pat Name: DOMIINCK MAXWELL Department: Room: Gender: M Strap Buckler Machine: DEBORA : 1945 Requested By: Matty Gayle Order Number: [id number] MD: Tomer Palmer Measurements Intervals [place] Rate: 118 P: 67 NE: 129 QRS: 77 QRSD: 148 T: -35 QT: 348 QTc: 488 Interpretive Statements Sinus tachycardia Right bundle branch block Compared to ECG 09/07/2018 19:38:05 No significant changes Electronically Signed On 10-09-2018 22:41:23 CDT by Tomer Palmer [email or web address] ��������������������������������������������� <ELECTRONICALLY SIGNED> ���������������������������������������� By: Tomer Palmer MD ��������������������������������������������� 10/09/18 [id number] [id number] Tomer Palmer MD /GHULAM
--- NOTE | 2018-10-10 04:24 | NUR ---
RESTING QUIETLY TONIGHT. PLACED URINARY CATHETER FOR PTS COMFORT. IT HAS STAYED IN PLACE NICELY AND HE HAS BEEN ABLE TO REST. CONTINUES ON IV ANTIBIOTICS AND FLUIDS. CAREPLAN REVIEWED.
[2018-10-10 05:23] LABS: HEMATOCRIT 28.5 % (42.0-52.0); HEMOGLOBIN 9.5 gm/dL (14.0-18.0); MCHC 33.4 g/dL (28.0-37.0); MCV 92.8 fL (80.0-100.0); PLATELET COUNT 200 thou/uL (150-400); RBC 3.07 mil/uL (4.50-6.00); WBC 12.9 thou/uL (4.0-11.0)
[2018-10-10 05:34] LABS: CALCIUM 7.8 mg/dL (8.5-10.1); CREATININE 0.7 mg/dL (0.7-1.3); POTASSIUM 3.3 mmol/L (3.5-5.1)
[2018-10-10 07:26] VITALS: BP 140/60
[2018-10-10 07:51] LABS: ABSOLUTE NEUTROPHILS 10.3 thou/uL (1.4-8.2)
[2018-10-10 07:52] LABS: ANISOCYTOSIS 1+; OVALOCYTES FEW
--- NOTE | 2018-10-10 09:45 | NUR ---
Nutrition: Initial risk for poor intake/weight loss. Familiar with pt from prior admits. 110# weight loss over 7-8 years which was unexplained, workup negative. Stable x 2 years and pt has ate well over entire time frame. DM on carb controlled diet. BG 145-176. Obtained food preferences, able to order own meals. Low risk at this time.
[2018-10-10 11:22] VITALS: BP 107/50
[2018-10-10 15:51] LABS: URINE BILIRUBIN NEGATIVE (Negative); URINE BLOOD 1+ (Negative); URINE CLARITY CLEAR; URINE COLOR YELLOW; URINE GLUCOSE-RANDOM* 1+ (Negative); URINE KETONES NEGATIVE (Negative); URINE LEUKOCYTES-REFLEX NEGATIVE (Negative); URINE NITRITE-REFLEX NEGATIVE (Negative); URINE PROTEIN (DIPSTICK) NEGATIVE (Negative); URINE SPECIFIC GRAVITY 1.025 (1.005-1.035); URINE UROBILINOGEN 0.2 E.U./dl (0.2-1.0)
--- NOTE | 2018-10-10 15:55 | NUR ---
INITIAL ASSESSMENT: Pt evaluated for d/c planning needs. Reviewed chart and spoke with nurse, pt and spouse. Pt is alert and oriented. Pt was hospitalized at [facility] last week and returned home. Pt lives in house with spouse and was independent with ADL's prior to admission. Pt has walker and cane at home. Pt has not had home health in the past. Pt plans on returning home on d/c from hospital. Will remain available to assist as needed.
[2018-10-10 15:58] LABS: CASTS None Seen /LPF (None Seen); SQUAMOUS None Seen /LPF (0-3)
[2018-10-10 15:59] LABS: BACTERIA-REFLEX 1-9 Few /HPF (None Seen); CRYSTALS None Seen /LPF (None Seen); URINE RBC 0-2 Rare /HPF (0-2); URINE WBC-REFLEX None Seen /HPF (0-5)
[2018-10-10 16:32] VITALS: BP 134/64
[2018-10-10 19:15] VITALS: BP 119/62
--- NOTE | 2018-10-10 19:50 | NUR ---
care of pt assumed this am @ ~0700. pt noted to be have a flat affect and quiet demeanor today as compared to yesterday. pt's at his side late morning, which seemed to improve his mood. pt worked w/ pt and ot today. pt was up in his chair for most of the day, including 2 meals. pt w/ a good appetite for food and fluid today. pt receiving ivf's w/o concern at iv access site. pt use of condom catheter early moring, but lost w/ ot bathing, so use of urinal thereafter. pt verbalized that he feels better today as compared to yesterday. vss. pt is hopeful that he would discover where his infection is, that it will be treated such that he will be infection free when he leaves this hospital this time.
[2018-10-11] VITALS (12 sets, daily range): BP systolic 98–163; BP diastolic 51–81
--- NOTE | 2018-10-11 05:01 | NUR ---
PROVIDED CARE PREVIOUSLY FOR PT IN EARLIER STAYS. PT DOES NOT LIKE BED NOR CHAIR ALARMS AND IS VERY GRUMPY ABOUT THEM. FOLLOWING POC WITH IVF AND IVPB ANTIBIOTICS. CT HAS RESULTED AND COULD SHOW THE REASON FOR THE REOCCURING SEPSIS. URINE OUTPUT IS OVER 1000 FOR SHIFT. HOURLY ROUNDING.
[2018-10-11 12:33] LABS: BE(vivo) -0.8 mmol/L (-2 to +3); HCO3 21.5 mmol/L (22.0-26.0); PCO2 27.9 mmHg (35.0-45.0); PO2 69.1 mmHg (80.0-100.0); pH 7.504 (7.360-7.450); sO2 95.5 % (92.0-98.0)
[2018-10-11 13:27] LABS: HEMATOCRIT 28.9 % (42.0-52.0); HEMOGLOBIN 9.8 gm/dL (14.0-18.0); MCH 31.1 pg (26.0-34.0); MCV 91.5 fL (80.0-100.0); RBC 3.16 mil/uL (4.50-6.00); RDW 15.7 % (10.5-14.5); WBC 9.8 thou/uL (4.0-11.0)
[2018-10-11 13:40] LABS: INR 1.1; PROTIME 11.2 Seconds (9.3-11.4)
--- NOTE | 2018-10-11 14:21 | NUR ---
SW reviewed chart and spoke with nursing and attending physician. Pt to be transferred to ICU when a bed becomes available. 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 SW is following to assist as needed with discharge planning.
--- NOTE | 2018-10-11 16:09 | NUR ---
Assumed care of patient at 0700. During morning assessment, patient is shaking and shivering, stating he has done this before and this is why he keeps coming into the hospital. Afebrile at this time; also tachycardic - rates 120s-130s. Given Tylenol and scheduled Sotalol at this time. An hour passed and patient is still shivering some and HR still increased. Dr. Cornelius notified; lactic acid ordered. Dr. Palmer also on the floor to round on patient. Reviewed CT Abdomen from yesterday; shows portal vein clot. Dr. Palmer reviewed with radiology and Dr. Cornelius; wants to transfer patient to ICU for closer monitoring, since patient has been more drowsy, in comparison to previous shifts. While awaiting ICU bed, at bedside. Kept up to date on interventions and plan of care. Patient is drowsy, but does easily arouse. Voiding per urinal, but then only voiding small amounts at a time, frequently. Bladder scanned and retaining urine. Order for Pérez obtained from Dr. Cornelius and placed without difficulty. Heparin bolus and gtt ordered per physicians. New IV access and heparin gtt started per protocol. ICU bed available; report called to MINNA Cole. updated on new room and transfer. Belongings gathered and transported to room 246.
--- NOTE | 2018-10-11 16:16 | NUR ---
1548-RECEIVED PT FROM 3W VIA BED.--VW
--- NOTE | 2018-10-11 17:55 | NUR ---
pt woke suddenly, asking did i miss lunch & dinner? set up for dinner. vss.no problems or complaints from pt.--vw
--- NOTE | 2018-10-11 18:08 | NUR ---
UPDVINOD,NO PLANS TO RETURN THIS BENNIE. PT LOOKS MUCH BETTER THAN EARLIER.GOOD APPETITE.? BACK TO FLOOR TOMORROW?--VW
[2018-10-12] VITALS (23 sets, daily range): BP systolic 105–166; BP diastolic 47–88
[2018-10-12 04:55] LABS: HEMATOCRIT 28.9 % (42.0-52.0); HEMOGLOBIN 9.8 gm/dL (14.0-18.0); MCH 31.1 pg (26.0-34.0); MCV 91.6 fL (80.0-100.0); RBC 3.16 mil/uL (4.50-6.00); RDW 15.6 % (10.5-14.5); WBC 12.1 thou/uL (4.0-11.0)
[2018-10-12 04:57] LABS: CALCIUM 7.5 mg/dL (8.5-10.1); CREATININE 0.7 mg/dL (0.7-1.3); MAGNESIUM 1.3 mg/dL (1.8-2.4); POTASSIUM 3.4 mmol/L (3.5-5.1)
--- NOTE | 2018-10-12 06:24 | NUR ---
Pt slept well through the night with stable VS. PRN tramadol given last pm with desired effect achieved. No c/o nausea and no BM observed this shift. Urine output adequate for shift. Am lab results noted, continue with POC.
--- NOTE | 2018-10-12 07:28 | NUR ---
PATIENT TRANSFERRED TO ICU, THEREFORE, A CHANGE IN STATUS. NEED NEW ORDERS FOR O.T. WHEN/IF APPROPRIATE.
[2018-10-12 17:07] LABS: HISTOPLASMA MYCELIAL-ID Negative (Negative)
--- NOTE | 2018-10-12 19:12 | NUR ---
1800 - PT A/O X4 ENTIRE SHIFT - OOB MAJORITY OF DAY /C AT BEDSIDE - NO COMPLAINTS - COMPLIANT /C TREATMENTS - VS WNL - VOIDING IN URINAL
[2018-10-12 21:05] LABS: HISTOPLASMA MYCELIAL-CF Negative (Neg:<1:2)
[2018-10-13] VITALS (18 sets, daily range): BP systolic 100–177; BP diastolic 45–106
--- NOTE | 2018-10-13 02:43 | NUR ---
ASSUMED CARE OF PT AT 1900. PT ALERT AND ORIENTED X4. PT ABLE TO STAND AND URINATE WITH SBA. PT SR ON THE MONITOR. PT PROGRESSIVELY MORE HYPERTENSIVE. HAM TRIMMER Daniel GOLDBERG NOTIFIED. ORDERS FOR ONE TIME PRN HYDRALAZINE FOR SBP >165 OR DBP > 100 GIVEN. HYDRALAZINE GIVEN WITH IMPROVEMENT IN BP. PT ABLE TO VOID PER URINAL. GOOD UO. WILL CONTINUE TO MONITOR.
[2018-10-13 06:58] LABS: HEMATOCRIT 31.8 % (42.0-52.0); HEMOGLOBIN 10.8 gm/dL (14.0-18.0); MCH 30.8 pg (26.0-34.0); MCHC 33.9 g/dL (28.0-37.0); MCV 90.9 fL (80.0-100.0); RBC 3.5 mil/uL (4.50-6.00); RDW 15.6 % (10.5-14.5); WBC 8.8 thou/uL (4.0-11.0)
[2018-10-13 09:25] LABS: T-SPOT.TB Negative
--- NOTE | 2018-10-13 13:42 | NUR ---
SW reviewed chart and spoke with nursing and attending physician. Pt was transferred to ICU from 3W due to portal vein clot and is progressing towards goals for discharge. Awaiting blood cultures at this time. Physical therapy evaluated pt and discharged him from their service. Plan is for pt to discharge home when medically stable. Pt with orders to transfer out of ICU to CC/Tele when bed available. BETH is following to assist as needed with discharge planning.
--- NOTE | 2018-10-13 18:07 | NUR ---
assumedcare of pt at 0700, pt is GCS 15 and A/O times 4. C/O pain at times to back and pain meds given as ordered. He hasbeen afibrile and SR on the monitor other VSS. pt rcvd orders to transfer out of ICU. report called and given to accepting nurse.
--- NOTE | 2018-10-13 19:52 | NUR ---
73 YO MALE TX FROM ICU TO 215. PT ALERT AND ORIENTED, NS @ 100 AND HEPARIN @20 INFUSING. VSS, PATIENT STATES NO NEEDS, WILL CONTINUE TO MONITOR.
[2018-10-14 00:25] VITALS: BP 150/71
[2018-10-14 03:18] LABS: HEMATOCRIT 30.4 % (42.0-52.0); HEMOGLOBIN 10.3 gm/dL (14.0-18.0); MCH 30.8 pg (26.0-34.0); MCHC 33.9 g/dL (28.0-37.0); MCV 90.8 fL (80.0-100.0); RBC 3.35 mil/uL (4.50-6.00); RDW 15.7 % (10.5-14.5); WBC 7.2 thou/uL (4.0-11.0)
--- NOTE | 2018-10-14 03:32 | NUR ---
ASSUMED PT'S CARE AT 1935; PT. ON BED AOX4; RUNNING ON R. AC IV HEPARIN AT 20 UNITS/KG/H; L. FA IV NS AT 100 ML/H; PT. EDUCATED ABOUT FALL PREVENTION & NEED TO BE ON BED ALARM; ST. UNDERSTANDING; BASED ON CHART; PT'S APTT 47.1 AT 0655 ON 10/13/18; NO RECORD OF HEPARIN GTT ADJUSMENT BASED ON PROTOCOL; APTT 47.6 AT 1625 ON 10/13/18; NO RECORD OF HEPARIN GTT ADJUSTMENT BASED ON PROTOCOL; PER CHART LAST RECORD OF HEPARIN GTT ADJUSTMENT WAS ON 10/12/18 AT 1206 WHEN PT'S APTT WAS 54.1 & HEPARING RATE WAS 19; BASE ON eMAR ON 10/13/18 AT 1044 PT RECEIVED HEPARIN BOLUS; DUE TO LAST APTT & NOT INFORMATION ABOUT LAST HEPARING GTT ADJUSTMENT, PER PROTOCOL, NEW APTT LAB WAS ORDERED DUE AT 2100; THROUGH THE NIGHT ADJUSMENT OF HEPARING GTT & HEPARIN PUSH WAS MADE BASE ON APTT LABS; CHECK CHARTING; DURING ASSESSMENT PT. AOX4; C/O BACK PAIN; 12/31; PRN PAIN MEDICATION GIVEN; EXPLAINED THE GOALS FOR THE NIGHT AND TIMES THAT MIGHT BE WOKE UP DUE TO INTERVENTIONS; ST. UNDERSTANDING; DURING PAIN RE-ASSESSMENT PT. ST. PAIN 07/31; ABLE TO REST WITH EYES CLOSE THROUGH THE NIGHT; ASSESSMENT CHARGED; FOLLOWING POC;
[2018-10-14 05:10] VITALS: BP 163/59
[2018-10-14 08:05] VITALS: BP 165/78
[2018-10-14 11:05] VITALS: BP 142/77
--- NOTE | 2018-10-14 15:21 | NUR ---
FAXED IV ABX INFO AND FACESHEET TO [facility] TO CHECK BENEFITS SPOKE WITH ENRRIQUE AT [facility] AND SHE RECEIVED FAX. DCP TO FOLLOW.
--- NOTE | 2018-10-14 15:50 | NUR ---
Case discussed with the care team. Dc timeframe uncertain. Pt continues on heprin gtt and iv atb. Should the pt need home infusion at wi, [facility] is in network with his ins plan and he has drug coverage under medicare part D with a copay (which varies depending on the drug) and supplies are 100%. He would have nursing coverage and could use [facility] or [facility] as they accept his insurance plan. Pt has been dc'd from therapy. Will follow. Lola rodriguez on [phone] [facility] [phone] or [facility] [phone]
[2018-10-14 15:53] VITALS: BP 125/60
[2018-10-15 05:22] VITALS: BP 151/86
[2018-10-15 07:40] VITALS: BP 154/78
--- NOTE | 2018-10-15 09:16 | NUR ---
RECEIVED PT'S CARE AT 1930; PT. ON BED; AOX4; AT THE BED SIDE; NO C/O PAIN; DURING ASSESSMENT NO C/O PAIN; APTT DRAW AT 2330; THERAPEUTIC; CHECKED LABS; NO ADJUSTMENT ON HEPARIN PER PROTOCOL; ABLE TO REST THROUGH THE NIGHT; ASSESSMENT CHARGED; FOLLOWING POC; PASSED ON REPORT.
[2018-10-15 11:25] VITALS: BP 116/48
[2018-10-15 15:55] VITALS: BP 140/62
[2018-10-15 20:35] VITALS: BP 158/82
[2018-10-16] VITALS (8 sets, daily range): BP systolic 103–172; BP diastolic 44–134
--- NOTE | 2018-10-16 01:19 | NUR ---
ASSESSMENT CHARTED. PATIENT ON HEPARIN DRIP AT START OF SHIFT. AFTER APTT, DRIP REMAINS IS, WITH REDRAW SCHEDULED FOR NEXT DAY. UP WITH 1 ASSIST, PATIENT WILL IMPULSIVELY STAND UP TO URINATE AT BEDSIDE. FALL PRECAUTIONS IN PLACE.
--- NOTE | 2018-10-16 06:47 | NUR ---
ASSUMED CARE AROUND 0100. BP HIGH IN AM. ONE TIME IV HYDRALAZINE AND IVF STOPPED. NO S/S ACUTE DISTRESS NOTED OR REPORTED AT THIS TIME. WILL CONT TO MONITOR FOR ANY CHANGES IN CONDITION.
--- NOTE | 2018-10-16 17:08 | NUR ---
ASSUMED CARE THIS AM, PATIENT AWAKE AND STATES HE DID NOT SLEEP WELL LAST NIGHT. OX4. NO COMPLAINTS PAIN OR NAUSEA. UP TO CHAIR WITH STANDBY ASSIST. SR ON MONITOR. CONTINUES TO RECIEVE IV ANTIBIOTICS. MODERATE RANGE SS AND NOW DR. FLEMING HAS ADDED LANTUS 10 UNITS AT HS. 1700: PATIENT HAS BEEN OOB IN CHAIR ALL DAY, AT BEDSIDE. OFFERED TO WALK WITH PATIENT AROUND THE UNIT BUT HE DECLINES AT THIS TIME. MAYBE LATER HE STATES.
[2018-10-17 04:32] VITALS: BP 145/55
--- NOTE | 2018-10-17 06:00 | NUR ---
ASSUMED PT CARE AT 1900. VSS. PT A&0X4. STRONG AND STEADY ON HIS FEET. GOOD URINE OUTPUT OVER NIGHT. PT RESTED WELL FOR MOST OF THE NIGHT, APTT REMAINS THERAPEUTIC; NO CHANGE TO HEPARIN RATE. FALL PRECAUTIONS MAINTAINED. NO COMPLAINTS OF SEVERE PAIN OR RESPIRATORY DISTRESS, WILL CONTINUE TO MONITOR PER POC.
[2018-10-17 07:35] VITALS: BP 139/69
[2018-10-17 10:59] VITALS: BP 106/45
[2018-10-17 16:00] VITALS: BP 105/48
--- NOTE | 2018-10-17 17:53 | NUR ---
PT A&OX4, AMBULATES WITH STAND BY ASSIST. IV IN R FA INTACT INFUSING HEPRIN @ 19.99 ML/HR PER PROTOCOL. TOLERATING PO WELL DENIES PAIN TODAY. GI HAS CONSULTED TODAY. SPOUSE AT BEDSIDE. WILL CONT POC.
[2018-10-17 19:30] VITALS: BP 121/57
[2018-10-18 03:37] VITALS: BP 129/51
[2018-10-18 04:13] LABS: HEMATOCRIT 27.9 % (42.0-52.0); HEMOGLOBIN 9.8 gm/dL (14.0-18.0); MCH 31.8 pg (26.0-34.0); RBC 3.07 mil/uL (4.50-6.00); RDW 16.4 % (10.5-14.5)
[2018-10-18 04:18] LABS: CALCIUM 7.6 mg/dL (8.5-10.1); CREATININE 0.7 mg/dL (0.7-1.3); MAGNESIUM 1.5 mg/dL (1.8-2.4)
[2018-10-18 04:43] LABS: POTASSIUM 2.6 mmol/L (3.5-5.1)
--- NOTE | 2018-10-18 05:00 | NUR ---
ASSUMED CARE AT 1900. PT ON HEPARIN AND CONTINUE TO BE ON ABX. ALERT AND ORIENTED. DENIES CHEST PAIN, SOB, NAUSEA OR VOMITING. NO OTHER COMPLAINS REPORTED. WILL CONTINUE TO FOLLOW POC.
[2018-10-18 07:55] VITALS: BP 140/73
--- NOTE | 2018-10-18 09:53 | NUR ---
followup: admit with septicemia. Wts are stable, good appetite and able to voice own preferences. GI is consulted for colonoscopy. Hyperglycemia-pt on carb controlled diet, changed to mod ss insulin, and HS insulin. K and Mg are low-need replacement. Otherwise low nutrition risk
[2018-10-18 11:16] VITALS: BP 124/57
[2018-10-18 16:00] VITALS: BP 151/64
--- NOTE | 2018-10-18 18:31 | NUR ---
PT A&OX4, IV X2 INTACT IN R FA. AMBULATES WITH STAND BY ASSIST. HEPARIN GTT INFUSING @ 19.99 ML/HR. TOLERATING PO WELL DENIES PAIN AT THIS TIME. PT IS ON CL LIQUID DIET, NPO AFTER MN FOR COLONOSCOPY AND EGD IN AM. HEPARIN GTT TO DC'D AT NM. WILL CONT POC.
[2018-10-18 19:54] VITALS: BP 146/71
--- NOTE | 2018-10-19 03:32 | NUR ---
Assumed care at 1900. pt alert and oriented. reports back pain. alleviated with tramadol. pt heparin turned off at midnight due to scheduled colonoscopy. pt has been NPO since midnight. No further c/o during the night. Will continue to follow plan of care.
[2018-10-19 05:38] VITALS: BP 143/82
[2018-10-19 07:28] VITALS: BP 168/85
[2018-10-19 11:08] VITALS: BP 186/102
--- NOTE | 2018-10-19 14:33 | NUR ---
met with patient and at bedside. Patient prepping for colonoscopy he denies needs at dc. Patient may benefit from therapy reeval.
[2018-10-19 15:14] VITALS: BP 156/82
--- NOTE | 2018-10-19 16:27 | NUR ---
ASSESSMENT DOCUMENTED. PT ALERT AND ORIENTED. COLONOSCOPY PROCEDURE CANCELLED THIS AM . COLONOSCOPY SCHEDULED FOR TOMORROW MORNING. BOWEL PREP STARTED @ 1600. ORDERS GIVEN TO RESTART HEPARIN DRIP. HEPARIN DRIP STARTED, INFUSING @ 13.0 ML/HR PER THE PROTOCAL. APTT TO BE DRAWN @ 1800. AT THE BEDSIDE. WILL CONTINUE TO MONITOR.
[2018-10-19 19:51] VITALS: BP 154/83
[2018-10-20] VITALS (14 sets, daily range): BP systolic 93–190; BP diastolic 48–152
--- NOTE | 2018-10-20 02:45 | NUR ---
PATIENT DOING COLON PREP AT START OF SHIFT. BOWEL IS BROWN CLEAR LIQUID. HEPARIN WAS TURNED OFF AT MIDNIGHT PER ORDERS FOR MORNING COLONOSCOPY. PATIENT HAS BEEN NPO SINCE MIDNIGHT. PLAN OF CARE IS TO HAVE COLONOSCOPY AND EGD IN MORNING, CONTINUE SCHEDULED DIURESE. FALL PRECAUTIONS IN PLACE.
--- NOTE | 2018-10-20 15:53 | NUR ---
ASSESSMENT CHARTED. PT ALERT AND ORIENTED. HAD EGD AND COLONOSCOPY TODAY. ORDERS GIVEN BY DR. JENKINS TO RESTART HEPARIN DRIP AND FOLLOW PROTOCAL. SCHEDULED IV ABX GIVEN ORDERED. AT THE BEDSIDE. WILL CONTINUE TO MONITOR.
[2018-10-21 04:23] VITALS: BP 139/73
--- NOTE | 2018-10-21 04:24 | NUR ---
ASSESSMENTS CHARTED. PATIENT RESTING IN BED POST COLONOSCOPY AND EGD. PLAN OF CARE IS TO HAVE BOWEL VIDEO STUDY ON OUTPATIENT STATUS, GO HOME WITH PPI, AWAIT RESULTS FROM [facility].
--- NOTE | 2018-10-21 07:34 | P ---
[facility] [place] [address] PROCEDURE REPORT Name: DOMINICK MAXWELL Room #: 215-P ADM IN M.R.#: [id number] Admission: 10/09/18 ������������������ Attend Phys: Redd Shah MD Discharge: ������������������ Date of : 43 Report #: [id number] THIS REPORT FOR: //name// CC: Redd Almanzar MD DATE OF SERVICE: 10/20/2018 PROCEDURE: EGD with biopsies. Patient of Dr. Luis Almanzar and Dr. Redd Shah. 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 We are trying to rule out GI possibilities. DESCRIPTION OF PROCEDURE: Informed consent for this procedure was obtained prior to the administration of any medication. The risks include but are not limited to bleeding, perforation, infection, complications of sedation and the possibility I could miss something and the patient has indicated his consent to proceed by signing. Anesthesia kindly provided deep sedation for this procedure and the colonoscopy that followed it using propofol. With the patient in the left lateral decubitus position, the Olympus upper videoscope was introduced through the upper esophageal sphincter and advanced under direct visualization to the third portion of the duodenum. Findings are noted on withdrawal of the scope. The third portion of the duodenum that was visualized appeared normal as did the second portion of the duodenum, there is bile in the lumen. The duodenal bulb is somewhat erythematous. Pylorus mildly erythematous. Antrum moderate erythema of the prepyloric area, particularly of the antrum of the stomach. Biopsies were obtained from this area x 2 for histopathology and good hemostasis was noted after the biopsies were completed. Body normal mucosa. Cardia and fundus, normal mucosa. Retroflex view did not reveal any other abnormalities. Scope was withdrawn into the esophagus. The Z-line is appropriately located at the top of the gastric folds and appears normal. The esophageal mucosa appeared normal throughout its entirety. The scope was withdrawn. The patient tolerated the procedure well. He has turned for colonoscopy. IMPRESSION: 1. Gastroduodenitis as described above. Biopsies pending. [facility] [address] [place] [address] PROCEDURE REPORT Name: DOMINICK MAXWELL Room #: 215-P [facility] IN .R.#: [id number] Admission: 10/09/18 ������������������ Attend Phys: Redd Shah MD Discharge: ������������������ Date of : 43 Report #: [id number] RECOMMENDATIONS: To continue the proton pump inhibitors and await the biopsy results. We will proceed with colonoscopy at this time. Thank you very much once again for allowing me to participate in his care, Dr. Almanzar and Dr. Shah. ��������������������������������������������� <ELECTRONICALLY SIGNED> ���������������������������������������� By: Gely Walsh DO ��������������������������������������������� 10/21/18 0734 1221 [id number] Gely Walsh DO /nt
--- NOTE | 2018-10-21 07:34 | P ---
[facility] [place] [address] PROCEDURE REPORT Name: DOMINICK MAXWELL Ivy Room #: 215-P ADM IN M.R.#: [id number] Admission: 10/09/18 ������������������ Attend Phys: Redd Shah MD Discharge: ������������������ Date of : 43 Report #: [id number] THIS REPORT FOR: //name// CC: LION Almanzar DATE OF SERVICE: 10/20/2018 He is a patient of Dr. Luis Almanzar and Dr. Redd Shah. PROCEDURE: Colonoscopy with snare polypectomy and biopsies. INDICATION FOR PROCEDURE: This patient has a diagnosis of Bacillus fragilis sepsis in 2 blood cultures and he also has a portal vein thrombosis of undetermined etiology. Colonoscopy and EGD are being performed today to evaluate for possible etiologies of these diagnoses. DESCRIPTION OF PROCEDURE: Informed consent for this procedure was obtained prior to the administration of any medication. The risks of the procedure, which include, but are not limited to, bleeding, perforation, infection, complications of sedation and the possibility I could miss something were explained to the patient and he has indicated his consent by signing. Anesthesia kindly provided deep sedation with propofol for these procedures. Digital rectal exam was done with the patient in the left lateral decubitus position. The prostate is smooth, slightly enlarged, no palpable nodules. There were no masses. Sphincter tone is lax because of the sedation. I cannot palpate any internal hemorrhoids or see any external hemorrhoids. Then, the Olympus colonoscope was introduced through the anal sphincter and advanced under direct visualization to the terminal ileum. Findings are noted on withdrawal of the scope. The terminal ileal mucosa appears normal. Cecum, normal mucosa. Ascending colon, a few uncomplicated diverticula are noted in the ascending colon. Other than that, there is a normal mucosa in the ascending colon. Retroflex view in the ascending colon was obtained at 2 different positions and nothing was seen on the backsides of the folds of the ascending colon. No polyps or other lesions. Hepatic flexure, normal mucosa. Transverse colon, a few uncomplicated diverticula are seen here and there. Splenic flexure, at the splenic flexure, there was a single small sessile 5 mm polyp that was removed in toto with a hot snare and sent to pathology lab. Good hemostasis was noted after that polypectomy. At 50 cm in the descending colon, there was another polyp that was somewhat sessile that was removed partially with a biopsy forceps. It was very sessile and difficult to get a hold with the snare and [address] [address] PROCEDURE REPORT Name: DOMINICK MAXWELL Ivy Room #: 215-P [facility] IN .R.#: [id number] Admission: 10/09/18 ������������������ Attend Phys: Redd Shah MD Discharge: ������������������ Date of : 43 Report #: [id number] then, I took the snare tip and ablated the rest of this sessile polyp at 50 cm. Pictures were taken of this post polypectomy and pre polypectomy. There were uncomplicated diverticula noted in the descending colon. In the sigmoid colon, uncomplicated diverticulosis is noted. At 15 cm, there is a collection of small benign appearing, probably hyperplastic polyps that are removed with biopsy forceps and snares and ablated with snares. The 4 different polypectomy specimens were sent to the lab for analysis. The rest of the polyps that were ablated with the snare tip probably numbered around 10 or so in the rectum. Retroflex view did not reveal any other abnormalities. The scope was withdrawn. The patient went to the recovery area in stable condition. He tolerated the procedure well. IMPRESSION: 1. Colon polyps removed from the left colon as above. 2. Uncomplicated pancolonic diverticulosis. Other than that, normal colonoscopic exam to the terminal ileum. RECOMMENDATIONS: My recommendation would be to consider a small bowel capsule as an outpatient for completion of this workup for possible causes of the Bacillus fragilis sepsis. Thank you very much once again for allowing me to participate in his care. ��������������������������������������������� <ELECTRONICALLY SIGNED> ���������������������������������������� By: Gely Walsh DO ��������������������������������������������� 10/21/18 0734 [id number] Gely Walsh DO /nt
[2018-10-21 12:18] VITALS: BP 151/68
[2018-10-21 15:06] LABS: HEMATOCRIT 34.4 % (42.0-52.0); HEMOGLOBIN 11.6 gm/dL (14.0-18.0); MCH 31.1 pg (26.0-34.0); MCHC 33.6 g/dL (28.0-37.0); MCV 92.4 fL (80.0-100.0); RBC 3.72 mil/uL (4.50-6.00); RDW 16.9 % (10.5-14.5); WBC 7.1 thou/uL (4.0-11.0)
[2018-10-21 15:13] LABS: CALCIUM 8.4 mg/dL (8.5-10.1); MAGNESIUM 1.8 mg/dL (1.8-2.4); POTASSIUM 4.5 mmol/L (3.5-5.1)
--- NOTE | 2018-10-21 16:37 | NUR ---
Followup visit made with the pt and his at dc. Blood culture are pending as well as IV atb recommendations. Pt has repeat CT today. Scopes were done yesterday. Options for dc planning should the pt need iv atb discussed including home infusion, outpt infusion, and SNF. Pt would like to go home and open to HH or outpt. Pt's seems hesitant and feels snf may be a good option if he needs iv atb. [employer] listing provided and she is familiar with [facility] as a first choice. Pt is concerned that they still do not have a primary source of his infection. Support provided. Home infusion coverage noted in previous cm note. Will await ID recommendations. Pt indicates that he is up to the bathroom as needed. Will follow.
--- NOTE | 2018-10-21 17:45 | NUR ---
ASSUMED CARE OF PT AT 0700. PT A&OX4, UP WITH STANDBY. MONITORING FOR SIGNS OF INFECTION AND PT AFEBRILE WITH VITALS SIGNS STABLE. PT HAD BLOOD CULTURES DRAW TODAY. CT OF ABD WITH CONTRAST PERFORMED. PT OFF HEPARIN AND STARTED ON XARALTO. PT OFFERED SHOWER AND REFUSED. PT'S BLOOD SUGAR WAS HIGH TODAY AND INSULIN GIVEN PER MOD DOSE SLIDING SCALE. WILL CONT WITH POC
[2018-10-21 19:40] VITALS: BP 131/49
[2018-10-22 03:39] VITALS: BP 132/68
--- NOTE | 2018-10-22 04:29 | NUR ---
ASSESSMENT DOCUMENTED.PT RESTING IN NO ACUTE DISTRESS.A/OX4.VSS.ABT TX,TOLERATED.UP WITH ASSIST TO BR.SR ON MONITOR.DENIES PAIN.POC IS TO CONTINUES WITH ABT,WHILE WAITING FOR BLOOD CULTURES.WILL CONTINUES TO MONITOR PER POC.
[2018-10-22 07:39] VITALS: BP 142/66
[2018-10-22 12:37] VITALS: BP 114/55
[2018-10-22 16:26] VITALS: BP 150/75
--- NOTE | 2018-10-22 16:49 | NUR ---
ASSESSMENT CHARTED - MEDS PER JUL - NO CO'S OF PAIN OR NAUSEA. JIMMY DIET AND FLUIDS. PT GETTING OUT OF BED INDEPENDANTLY UP TO THE BATHROOM - PT UP TO THE CHAIR - SHOWERED THIS AFTERNOON. PT STATING THAT HE IS TIERD OF BEING HERE - WANTS TO GO HOME. HAS LESION ON OUTER ASPECT OF L ANKLE THAT APPEARS WITH A - WHITE HEAD- ON IT. NO CO'S AT THE PRESENT TIME.
[2018-10-22 19:42] VITALS: BP 135/67
[2018-10-23 04:00] VITALS: BP 140/68
[2018-10-23 07:16] VITALS: BP 151/78
--- NOTE | 2018-10-23 07:40 | NUR ---
ASSESSMENT CHARTED. PATIENT IS CONTINUING TO RECEIVE IV ANTIBIOTICS. PATIENT IS IMPULSIVE CONCERNING TOLIETING. PATIENT IS AWARE HE SHOULD CALL BUT DOES NOT. PLAN OF CARE IS TO CONTINUE IV ANTIBIOTICS THROUGH WEEKEND.
[2018-10-23 11:19] VITALS: BP 120/62
[2018-10-23 15:20] VITALS: BP 126/67
--- NOTE | 2018-10-23 17:04 | NUR ---
ASSESSMENT CHARTED - MEDS PER MAR - NO CO'S OF PAIN OR NASUEA. JIMMY DIET AND FLUIDS - PT UP IN ROOM DESIRED. BLOOD SUGAR HIGH PRIOR TO LUNCH - PATIENT EATING MCDONALDS AND RIT CHIPS - BLOOD SUGAR 547 - DR GREGORY MORALES AND PT GIVEN 20 UNITS OF NOVALOG - BLOOD SUGAR RECHECK IN 3 HOURS DOWN TO 396 PATIENT CONINUING TO EAT CRACKERS / CHIPS - PRIOR TO DINNER IS 361 WILL COVER PER SLIDING SCALE. NO CO'S AT THE PRESENT TIME.
[2018-10-23 19:10] VITALS: BP 122/63
--- NOTE | 2018-10-24 03:46 | NUR ---
ASSUMED CARE 1899. VSS. ASSESSMENT [id number]. PT DENIES PAIN, N/V. BS ELEVATED PT ADMITS TO EATING EXTRA SNACKS, LANTUS AND SLIDING SCALE PER EMAR. IMPULSIVE TO TOILET REMINDED TO CALL, BED ALARM ON AND WORKING. IV ABX PER EMAR. PLAN FOR LABS THIS AM. WILL CONTINUE TO MONITOR AND WITH POC.
[2018-10-24 04:19] LABS: CALCIUM 8.3 mg/dL (8.5-10.1); CREATININE 0.9 mg/dL (0.7-1.3); POTASSIUM 4.2 mmol/L (3.5-5.1)
[2018-10-24 04:26] LABS: HEMATOCRIT 31.3 % (42.0-52.0); HEMOGLOBIN 10.5 gm/dL (14.0-18.0); MCH 31.1 pg (26.0-34.0); MCHC 33.7 g/dL (28.0-37.0); MCV 92.1 fL (80.0-100.0); RBC 3.4 mil/uL (4.50-6.00); RDW 17.1 % (10.5-14.5); WBC 7.3 thou/uL (4.0-11.0)
[2018-10-24 05:30] VITALS: BP 110/57
[2018-10-24 08:21] VITALS: BP 121/65
[2018-10-24 08:22] VITALS: BP 97/59
--- NOTE | 2018-10-24 12:02 | NUR ---
PT IS A&OX4, AMB STEADY, HAS LOW B/P (HIS BASELINE), ENCOURAGED TO CALL FOR NEEDS AND BED ALARM ON IN SPITE OF ARGUMENT, ENCOURAGED HIM TO USE FOR RESTING, AND WE'D SHUT OFF WHILE HE'S SITTING AT EDGE OF BED AND VISITING W/SPOUSE. HE STATES HE'LL CALL FOR AMB NEEDS. C/O PAIN CHRONIC IN LOWER BACK, VISITED W/HIM AND SPOUSE AND ENCOURAGED TO CALL FOR ANY NEEDS
--- NOTE | 2018-10-24 12:22 | NUR ---
met with patient and spouse at bedside. Plan oral antibiotics at nc. interested in home health care they have no preference for agency requested [facility] eval.
[2018-10-24 12:44] VITALS: BP 131/75
[2018-10-24] MEDS ORDERED: XARELTO20 MG PO (15:56)
[2018-10-24] MEDS ORDERED: METRONIDAZOLE500 M4 PO (15:56)
[2018-10-24] MEDS ORDERED: ACETAMINOPHEN325 M1 PO (15:56)
[2018-10-24] MEDS ORDERED: PREDNISONE 10 M10 MG PO (15:56)
[2018-10-24 15:57] VITALS: BP 131/75
[2018-10-24 16:59] VITALS: BP 131/75
--- NOTE | 2018-10-24 19:06 | PATH ---
[facility] [address] [place] [address] PATHOLOGY RPT PROCEDURE Name: PADMAJA MAXWELL Ivy Room #: 215-P DIS IN M.R.#: [id number] ������������������ Admission: 10/09/18 ������������������ Date of : 43 Discharge: 10/24/18 Report #: [id number] Path Case #: [id number] [facility] Accession Number: [id number] . 01 Material submitted: . PART A: stomach - BX OF GASTRIC R/O H. PYLORI PART B: splenic flexure - POLYP AT SPLENIC FLEXURE PART C: colon - BX OF POLYP AT 50CM PART D: colon - POLYPS AT 15CM X3 . 01 Clinical history: . Pre-OP DX: Bacteremia, colon polyps, portal vein, thrombosis, B. fragile sepsis Post-OP DX: Gastritis, colon polyps, diverticulosis . 02 Diagnosis: A. Gastric mucosa, gastric R/O H. pylori, endoscopic biopsy: - Mild reactive gastropathy. - Negative for intestinal metaplasia or atrophy. - Negative for Helicobacter pylori (properly controlled immunohistochemical stain performed. . B. Polyp, splenic flexure, endoscopic biopsy: - Tubular adenoma. - Negative for high-grade dysplasia. . C. Polyp, at 50 cm, endoscopic biopsy: - Tubular adenoma. - Negative for high-grade dysplasia. . D. Polyp x3, at 15 cm, endoscopic biopsy: - One fragment showing tubular adenoma without high-grade dysplasia. - Two fragments showing inflamed hyperplastic polyps without dysplasia. (IUV:maryam; 10/24/2018) QMS/10/24/2018 . 02 Electronically signed: . Krista Damon MD, Pathologist NPI- [id number] . 01 Gross description: . A. Received in formalin labeled "Padmaja Maxwell, BX of gastric, rule out H. pylori," is a single segment of ridley soft tissue measuring 0.6 cm in maximum dimension. The specimen is entirely submitted in cassette A1. . B. Received in formalin labeled "Padmaja Maxwell, polyp at splenic flexure," is a single segment of ridley soft tissue measuring 0.5 cm in maximum [address] [address] PATHOLOGY RPT PROCEDURE Name: PADMAJA MAXWELL Room #: 215-P DIS IN M.R.#: [id number] ������������������ Admission: 10/09/18 ������������������ Date of : 43 Discharge: 10/24/18 Report #: [id number] Path Case #: [id number] dimension. The specimen is entirely submitted in cassette B1. . C. Received in formalin labeled "Padmaja Maxwell, BX of polyp at 50 cm," are 2 segments of ridley soft tissue measuring 0.7 x 0.2 x 0.2 cm in aggregate dimensions and ranging from 0.3 to 0.4 cm in maximum dimension. The specimen is submitted entirely in cassette C1. . D. Received in formalin labeled "Padmaja Maxwell, polyp at 15 cm x3," are 3 segments of ridley soft tissue measuring 1.2 x 0.8 x 0.3 cm in aggregate dimensions and ranging from 0.4 to 0.5 cm in maximum dimension. The specimen is submitted entirely in cassette D1. (TSD; 10/21/2018) TOB/TOB . 02 Pathologist provided ICD-10: K31.9, D12.3, D12.6, K63.5 . 02 CPT . 738854, 427369, 297727, 646896 Specimen Comment: A courtesy copy of this report has been sent to Specimen Comment: [phone], , . Specimen Comment: Report sent to ,DR ESPINOZA / DR IBARRA Performed at: [address], [place] [id number] MD Zach Boone MD Phone: [phone] Performed at: [address] [id number] MD Krista Damon MD Phone: [phone]
== END 2018-10-24 17:14 | disposition home health service (06) | DRG 871 ==
LOC: ER 04:58 → 3W 09:00 → ER 09:29 → 3W 09:29 → ICU 10-11 16:25 → 2N 10-13 17:43
PROVIDERS: Emergency Medicine; Internal Medicine; Internal Medicine Infectious Disease; ADMIT Hospitalist
PROC: 0DBM8ZZ Excision of Descending Colon, Via Natural or Artificial Opening Endoscopic (ICD-10-PCS; principal; 2018-10-20)
PROC: 0DBL8ZZ Excision of Transverse Colon, Via Natural or Artificial Opening Endoscopic (ICD-10-PCS; principal; 2018-10-20)
PROC: 0DBN8ZZ Excision of Sigmoid Colon, Via Natural or Artificial Opening Endoscopic (ICD-10-PCS; principal; 2018-10-20)
PROC: 0DB68ZX Excision of Stomach, Via Natural or Artificial Opening Endoscopic, Diagnostic (ICD-10-PCS; principal; 2018-10-20)
DX: A41.59 Other Gram-negative sepsis (principal); G92 Toxic encephalopathy; I81 Portal vein thrombosis; K75.1 Phlebitis of portal vein; E27.40 Unspecified adrenocortical insufficiency; E87.2 Acidosis; I25.10 Atherosclerotic heart disease of native coronary artery without angina pectoris; I48.0 Paroxysmal atrial fibrillation; J43.9 Emphysema, unspecified; Z96.652 Presence of left artificial knee joint; E78.5 Hyperlipidemia, unspecified; R65.20 Severe sepsis without septic shock; D64.9 Anemia, unspecified; E11.65 Type 2 diabetes mellitus with hyperglycemia; E87.6 Hypokalemia; R74.0 Nonspecific elevation of levels of transaminase and lactic acid dehydrogenase [LDH]; M06.9 Rheumatoid arthritis, unspecified; F17.210 Nicotine dependence, cigarettes, uncomplicated; D12.4 Benign neoplasm of descending colon; K29.90 Gastroduodenitis, unspecified, without bleeding; D12.5 Benign neoplasm of sigmoid colon; D12.3 Benign neoplasm of transverse colon; K57.30 Diverticulosis of large intestine without perforation or abscess without bleeding; Z86.010 Personal history of colon polyps; Z85.828 Personal history of other malignant neoplasm of skin; Z95.5 Presence of coronary angioplasty implant and graft; Z87.81 Personal history of (healed) traumatic fracture; Z79.84 Long term (current) use of oral hypoglycemic drugs; Z79.51 Long term (current) use of inhaled steroids; Z79.899 Other long term (current) drug therapy; Z88.0 Allergy status to penicillin; Z88.8 Allergy status to other drugs, medicaments and biological substances
CPT/HCPCS: 10078; 10081; 10203; 10779; 62110; 62900; 70005

== ENCOUNTER 2018-11-29 18:18 | Inpatient (IN) | payer OTHER ==
[~2018-11-29] VITALS: Ht 193 cm; Wt 79.8 kg
[~2018-11-29 18:18] MED LIST changes: +ACETAMINOPHEN325 M1 PO; +FLOMAX0.4 MG PO; +METRONIDAZOLE500 M4 PO; +PREDNISONE 10 M10 MG PO; +XARELTO20 MG PO
[2018-11-29 18:19] VITALS: BP 167/78
[2018-11-29 18:47] LABS: ABSOLUTE NEUTROPHILS 8.1 thou/uL (1.4-8.2); BASOPHILS 0.6 % (0.0-2.0); EOSINOPHILS 0.4 % (0.0-3.0); HEMATOCRIT 34.6 % (42.0-52.0); LYMPHOCYTES 6.8 % (24.0-44.0); MCH 30.4 pg (26.0-34.0); MCHC 34.7 g/dL (28.0-37.0); MCV 87.6 fL (80.0-100.0); MONOCYTES 7.2 % (1.0-8.0); PLATELET COUNT 238 thou/uL (150-400); RBC 3.94 mil/uL (4.50-6.00); RDW 16.3 % (10.5-14.5); WBC 9.5 thou/uL (4.0-11.0)
[2018-11-29 19:00] LABS: ANION GAP 9 mmol/L (7-16); BUN 13 mg/dL (7-18); CHLORIDE 97 mmol/L (98-107); CO2 26 mmol/L (21-32); CREATININE 0.8 mg/dL (0.7-1.3); GLUCOSE 356 mg/dL (74-106); POTASSIUM 3.9 mmol/L (3.5-5.1); SODIUM 132 mmol/L (136-145)
[2018-11-29 19:07] LABS: ALBUMIN 2.8 g/dL (3.4-5.0); MAGNESIUM 1.1 mg/dL (1.8-2.4); SGOT 16 U/L (15-37); SGPT 14 U/L (30-65); TOTAL BILIRUBIN 0.4 mg/dL (<0.1-1.0); TOTAL PROTEIN 7.1 g/dL (6.4-8.2); TROPONIN-I <0.06 ng/mL (<0.06)
[2018-11-29 19:26] LABS: INR 1.1; PROTIME 11.7 Seconds (9.3-11.4)
[2018-11-29 19:27] LABS: URINE BILIRUBIN NEGATIVE (Negative); URINE BLOOD TRACE (Negative); URINE CLARITY CLEAR; URINE COLOR YELLOW; URINE GLUCOSE-RANDOM* 3+ (Negative); URINE KETONES NEGATIVE (Negative); URINE LEUKOCYTES-REFLEX NEGATIVE (Negative); URINE NITRITE-REFLEX NEGATIVE (Negative); URINE PROTEIN (DIPSTICK) TRACE (Negative); URINE SPECIFIC GRAVITY 1.015 (1.005-1.035); URINE UROBILINOGEN 0.2 E.U./dl (0.2-1.0)
[2018-11-29 20:37] VITALS: BP 101/54
[2018-11-29] MEDS ORDERED: ASPIRIN325 PO (22:44)
[2018-11-29] MEDS ORDERED: PREDNISONE 5 MG5 MG PO (22:46)
[2018-11-29] MEDS ORDERED: ALEVE220 MG PO (22:47)
[2018-11-29] MEDS ORDERED: FLOMAX0.4 MG PO (22:48)
[2018-11-29] MEDS ORDERED: XARELTO10 MG PO (22:48)
[2018-11-29 22:56] VITALS: BP 124/65
[2018-11-29 23:25] VITALS: BP 137/79
[2018-11-29 23:30] VITALS: BP 140/69
[2018-11-29 23:45] VITALS: BP 139/71
[2018-11-30] VITALS (19 sets, daily range): BP systolic 102–164; BP diastolic 48–83
[2018-11-30 04:23] LABS: CALCIUM 7.5 mg/dL (8.5-10.1); CREATININE 0.6 mg/dL (0.7-1.3); MAGNESIUM 1.5 mg/dL (1.8-2.4); POTASSIUM 3.6 mmol/L (3.5-5.1)
--- NOTE | 2018-11-30 07:31 | EKG ---
[address] [place] [address] ELECTROCARDIOGRAM REPORT Name: DOMINICK MXAWELL Room #: 240- ADM IN M.R.#: [id number] ������������������ Admission: 11/29/18 ������������������ Attend Phys: Akin Joiner MD Discharge: ������������������ Date of : 43 Report #: [id number] ����������������������������������������������������������������� [id number] THIS REPORT FOR: //name// [facility] ED Test Date: 2018-11-29 Test Time: 18:27:03 Pat Name: DOMINICK MAXWELL Department: Room: 240 Gender: M Scorekeeper: FABI : 1945 Requested By: Aiden Paz Order Number: [id number] MD: Miles Dumont Measurements Intervals [place] Rate: 123 P: 75 [place]: 122 QRS: 72 QRSD: 134 T: -31 QT: 317 QTc: 454 Interpretive Statements Sinus tachycardia Right bundle branch block Compared to ECG 10/09/2018 05:05:47 No significant changes Electronically Signed On 11-30-2018 7:31:42 CDT by Miles Dumont [email or web address] ��������������������������������������������� <ELECTRONICALLY SIGNED> ���������������������������������������� By: Miles Dumont MD, [facility] ��������������������������������������������� 11/30/18 0731 26 26 Miles Dumont MD, [facility] /EPI
--- NOTE | 2018-11-30 09:23 | NUR ---
Assess due to dx sepsis. Visit during breakfast this am, sitting up, good appetite is demonstrated and able to relate food preferences. States usual wt of 185 lb and did not feel he has lost wt. Low nutrition risk
--- NOTE | 2018-11-30 09:33 | NUR ---
ADMITTED FROM ER TO ICU 240 LAST NOC. PT MORE ALERT THIS AM. EXPRESSES THAT HE WANTS TO GO HOME. LESS TACHYCARDIC AFTER FLUIDS INFUSING. TEMP DOWN TO 98.6 THIS AM. TRAMADOL ORDERED FOR C/O OF BACK PAIN. INCONT OF URINE -PROGRESSING TOWARD GOALS. CONT PLAN OF CARE
--- NOTE | 2018-11-30 16:10 | NUR ---
Pt came to unit approx 1400. Alert and oriented x4. Denies pain. IVF infusing. Pt sitting on the chair watching TV at the moment. at bedside. Call light within reach. Will continue to monitor and assist with needs.
--- NOTE | 2018-11-30 16:50 | NUR ---
Case opened to follow for dc planning. Pt well known to cm from multiple admissions this year. Pt last dc'd to home with hh per [facility];however he was a non admit as he did not feel like he would be homebound. The pt has readmitted with pneumonia. He is feeling better today and moved out of the ICU. Cushion Stuffer visited with him and his at bedside. He is normally indep with gait and adl's. His drives and does the house keeping and meals. He has a cane and an old rwalker if needed. He is wanting to see if he could be evaluated for a rolator walker with a seat for distance walking. He is receptive to hh if needed at dc. Will ask for PT eval for weakness and dme recommendations. Will follow.
--- NOTE | 2018-12-01 03:48 | NUR ---
ASSUMED PT CARE 1899. PT ALERT AND ORIENTED. REASSESSMENT COMPLETE. VSS. IV DRESSINGS C/D/I. REPORTS CHRONIC PAIN, DENIES N/V. CALL LIGHT AND PERSONAL BELONINGS WITHIN REACH, WILL CONTINUE POC UNTIL EOS.
[2018-12-01 04:36] VITALS: BP 152/83
[2018-12-01 06:25] LABS: HEMATOCRIT 28.8 % (42.0-52.0); MCH 29.9 pg (26.0-34.0); MCV 88.1 fL (80.0-100.0); RBC 3.27 mil/uL (4.50-6.00); RDW 16.4 % (10.5-14.5); WBC 9.7 thou/uL (4.0-11.0)
[2018-12-01 06:29] LABS: HEMOGLOBIN 9.8 gm/dL (14.0-18.0)
[2018-12-01 06:41] LABS: ALBUMIN 2.1 g/dL (3.4-5.0); CALCIUM 7.6 mg/dL (8.5-10.1); CREATININE 0.6 mg/dL (0.7-1.3); PHOSPHORUS 1.7 mg/dL (2.5-4.9); POTASSIUM 3.1 mmol/L (3.5-5.1)
--- NOTE | 2018-12-01 08:05 | NUR ---
PATIENT CARE WAS ASSUMED AT 0715.PATIENT IS ALERT AND ORIENTED X4.PATIENT HAS NO COMPLAINS OF PAIN AT THIS TIME.PT IS STANDBY ASSIST.IV FLUIDS ARE INFUSING.CALL LIGHT,PHONE, AND PERSONAL BELONGINGS ARE WITHIN REACH.
[2018-12-01 08:26] VITALS: BP 152/80
--- NOTE | 2018-12-01 14:06 | NUR ---
SPOUSE AND PATIENT WANTED TO HAVE DR. Chet BOWDEN, FROM I.D. CONSULTED.NURSE CONTACTED HOSPITALIST ON PT'S BEHALF.HOSPITALIST IS AWARE.
--- NOTE | 2018-12-01 16:01 | NUR ---
CM FOLLOWED UP WITH LIAISON WITH PROVIDER PLUS AND SHE INDICATED THAT SHE WOULD BE ABLE TO ISSUE PT A 4WW WITH A SEAT FOR USE UPON DC. CM TO FOLLOW INIDCATED WITH DC PLANNING.
[2018-12-01 16:30] VITALS: BP 113/61
[2018-12-01 19:19] VITALS: BP 142/65
--- NOTE | 2018-12-02 03:34 | NUR ---
ASSUMED PT CARE 1899. PT ALERT AND ORIENTED. REASSESSMENT COMPLETE. VSS. IV DRESSING C/D/I. DENIES PAIN, DENIES N/V. CALL LIGHT WITHIN REACH. WILL CONTINUE POC UNTIL EOS.
[2018-12-02 05:20] VITALS: BP 161/99
[2018-12-02 08:00] VITALS: BP 153/78
[2018-12-02] MEDS ORDERED: LEVAQUIN 500 M500 M2 PO (08:59)
--- NOTE | 2018-12-02 15:12 | NUR ---
PATIENT CARE WAS ASSUMED AT 0715.JESSICAN IS ALERT AND ORIENTED X4.PATIENT HAS AT BEDSIDE. AND PATIENT ARE VERY CONCERNED.PATIENT AND SPOUSE STILL WANT TO SPEAK TO .HOPITALIST HAS BEEN IN CONTACT WITH ABOUT PATIENT.PT HAS NOT BEEN FEELING GOOD DURING THE MORNING. WANTED TO RECHECK ON PATIENT AND IF PATIENT IS FEELING BETTER HE COULD POSSIBLE BE DISCHARGED.PT HAS BEEN FEELING WEAK, SO PATIENT WAS ENCOURAGED TO CALL FOR ASSISTANCE TO GET UP AND GO TO THE BATHROOM.PT HAS CALL LIGHT,PHONE, AND PERSONAL BELONGINGS WITHIN REACH.WILL CONTINUE TO MONITOR PATIENT.
[2018-12-02 16:30] VITALS: BP 117/60
[2018-12-02] MEDS ORDERED: PREDNISONE 5 MG5 MG PO (17:05)
[2018-12-02 19:51] VITALS: BP 116/61
[2018-12-03 04:16] VITALS: BP 144/73
--- NOTE | 2018-12-03 07:55 | NUR ---
ASSESSMENT COMPLETED.PT DENIED PAIN THIS SHIFT.URINAL AT BEDSIDE.UP WITH SBA TO THE TOILET.BG MONITORED AT HS,TX INITIATED PER ORDER.PT LOOKING FORWARD TO BE DC THIS MORNING. REPORT TO AM NURSE.
[2018-12-03 08:33] VITALS: BP 164/74
[2018-12-03 10:08] VITALS: BP 164/74
--- NOTE | 2018-12-03 12:10 | NUR ---
Assumed pt care at 7am.Pt in bed resting and waiting for breakfast.Assessment completed.vss.Dr Rodriguez here and wanted to know why pt wasn't dc home yesterday as ordered.Per noc rn report,pt was too weak to ambulate and so was kept till today.Pt and his were very disappointed with the care received since admission and vented about not getting prednisone since admission until yesterday.Service recovery provided and junior brand manager will be notify.Dc order completed and reviewed with pt and .Pt will be dc home after lunch with .No verbal c/o at present,will continue to monitor.
--- NOTE | 2018-12-05 09:24 | HC ---
[facility] [place] [address] [address] [place] [address] CONSULTATION Name: DOMINICK MAXWELL Room #: 431-P [facility] [place] ..#: [id number] Admission: 11/29/18 ������������������ Attend Phys: Jp Rodriguez Discharge: 12/03/18 ������������������ Date of : 44 Report #: [id number] THIS REPORT FOR: //name// CC: Jp Almanzar DATE OF SERVICE: 12/02/2018 INFECTIOUS DISEASE CONSULTATION ATTENDING PHYSICIAN: Dr. Akin Joiner. REASON FOR CONSULTATION: Febrile illness, profound fatigue. HISTORY OF PRESENT ILLNESS: A 73-year-old white man, well known to me from previous hospitalization at [facility]. The initial hospitalization was related to sepsis with E. coli bacteremia. 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 He is treated with parenteral antibiotics and subsequently discharged on Flagyl and rivaroxaban anticoagulation. At present time, the patient is feeling some better, but he is profoundly weak and unable to ambulate. Apparently, according to , he had not received his prednisone at the time of admission and was restarted today. The patient voices no major complaints, and he is better and not confused. He recognizes me. PAST MEDICAL HISTORY: Coronary artery disease. Atrial fibrillation. Coronary artery stentings. History of left total knee replacement. Rheumatoid arthritis -- immunosuppressed host, on prednisone 15 mg daily, leflunomide 10 mg p.o. daily and hydroxychloroquine 200 mg b.i.d. The patient no longer on methotrexate. DRUG ALLERGIES: ATORVASTATIN, MUSCLE ACHES AND PAINS. PENICILLIN, HIVES AND RASH. MEDICATIONS: The patient is currently on treatment with Levaquin 500 mg IV daily, leflunomide 10 mg p.o. daily, methylprednisolone 40 mg IV single dose today followed by prednisone 5 mg p.o. daily. The patient is also on treatment with hydroxychloroquine 200 mg p.o. daily. He is on treatment as well with tamsulosin, aspirin (the patient's tells me he has not been on aspirin before, wondering if we should continue, I will defer to hospitalist). He is on cholecalciferol, glipizide, folic acid, sotalol, Atrovent and albuterol inhalation treatment, anticoagulation with rivaroxaban 20 mg daily, metformin 1000 mg b.i.d., insulin lispro per sliding scale, p.r.n. acetaminophen, p.r.n. tramadol, p.r.n. glucose and glucagon. SOCIAL HISTORY: See [facility], old records. [address] [place] [address] CONSULTATION Name: DOMINICK MAXWELL Room #: 431-P DIS IN M.R.#: [id number] Admission: 11/29/18 ������������������ Attend Phys: Jp Rodriguez Discharge: 12/03/18 ������������������ Date of : 44 Report #: [id number] FAMILY HISTORY: See H and P, old records. REVIEW OF SYSTEMS: As above and see H and P. PHYSICAL EXAMINATION: GENERAL: Chronically ill-appearing man. VITAL SIGNS: He was febrile with temperature as high as 103.3 degrees Fahrenheit on admission, tachycardic with a rate of 125, tachypneic with respirations 28 a minute, became hypotensive later on that date 92/50. Today's vital signs as follows: Temperature 99.2, pulse 97, respirations 18, BP 161/99. Weight 176 pounds on 11/30/2018. Height 6 feet 4 inches. HEENMT: Pupils reactive. Mouth edentulous. NECK: Supple. LUNGS: Few basilar rhonchi, crackles. HEART: S1, S2. No gallop. ABDOMEN: Hepatomegaly and no tenderness in that area. No masses or megaly. PELVIC AND RECTAL: Deferred. EXTREMITIES: No clubbing, cyanosis. NEUROLOGIC: Grossly within normal limits. LABORATORY DATA: Hyponatremia of 132, resolved on 12/01 at 138. Hypokalemia of 3.1 on 12/01. BUN and creatinine normal. Glucose 356-138. Phosphorus 1.7 millimoles per liter. Albumin low 2.1 g/dL. Protime 11.7 seconds. WBC 9700, hemoglobin 9.8 g/dL, platelets 213,000 after intravenous fluids given, which produced some hemodilution. Obviously, the patient dehydrated on admission. The urinalysis revealed trace protein, 3+ glucose, trace blood, otherwise negative. MICROBIOLOGY DATA: Blood cultures were obtained on admission and they remained negative at the time of this dictation. RADIOLOGY EVALUATION: A chest x-ray done 11/29 revealed some hyperexpansion and small bibasilar pulmonary infiltrates, question pneumonitis. CT scan of abdomen and pelvis revealed resolution of the clot in the portal vein. ASSESSMENT: 1. Febrile illness, possible pneumonitis. 2. Immunocompromised host. 3. Rheumatoid arthritis, on prednisone, leflunomide, hydroxychloroquine. 4. Coronary artery disease. 5. Diabetes mellitus. 6. Previous episode of E. coli bacteremia and Bacteroides fragilis bacteremia, complicated by pylephlebitis. SUGGESTIONS: The patient appears to be doing some better now, afebrile, [facility] [address] [place] [address] CONSULTATION Name: DOMINICK MAXWELL Room #: 431-P [facility] IN .R.#: [id number] Admission: 11/29/18 ������������������ Attend Phys: Jp Rodriguez Discharge: 12/03/18 ������������������ Date of : 43 Report #: [id number] hydrated. We will continue with Levaquin. Discussed with the patient and , ____ prednisone 15 mg p.o. daily. I will obtain ESR, CRP as well as urine for legionella and pneumococcal antigens. Dr. Rodriguez, thank you for requesting my suggestions. ��������������������������������������������� <ELECTRONICALLY SIGNED> ���������������������������������������� By: Kevin Palmer MD ��������������������������������������������� 12/05/18 0924 1238 1511 Kevin Palmer MD /nt
== END 2018-12-03 13:15 | disposition home or self-care (01) | DRG 871 ==
LOC: ER 18:18 → EROBS 20:10 → ICU 20:10 → 4E 20:10 → ICU 23:07 → 4E 11-30 13:36
PROVIDERS: Emergency Medicine; Nurse Practitioner Acute Care; ADMIT Hospitalist
DX: A41.9 Sepsis, unspecified organism (principal); G92 Toxic encephalopathy; J18.9 Pneumonia, unspecified organism; E27.40 Unspecified adrenocortical insufficiency; N12 Tubulo-interstitial nephritis, not specified as acute or chronic; I25.10 Atherosclerotic heart disease of native coronary artery without angina pectoris; I48.2 Chronic atrial fibrillation; Z96.652 Presence of left artificial knee joint; J43.9 Emphysema, unspecified; E78.5 Hyperlipidemia, unspecified; M06.9 Rheumatoid arthritis, unspecified; R65.20 Severe sepsis without septic shock; E11.9 Type 2 diabetes mellitus without complications; F17.210 Nicotine dependence, cigarettes, uncomplicated; E83.42 Hypomagnesemia; E86.0 Dehydration; B96.89 Other specified bacterial agents as the cause of diseases classified elsewhere; Z95.5 Presence of coronary angioplasty implant and graft; Z87.81 Personal history of (healed) traumatic fracture; Z88.0 Allergy status to penicillin; Z88.8 Allergy status to other drugs, medicaments and biological substances
CPT/HCPCS: 10203; 10783

== ENCOUNTER 2019-04-12 15:04 | Inpatient (IN) | payer OTHER ==
[2019-04-12] VITALS (7 sets, daily range): BP systolic 96–136; BP diastolic 40–77
[~2019-04-12] VITALS: Ht 193 cm; Wt 85.3 kg
[~2019-04-12 15:04] MED LIST changes: +XARELTO10 MG PO
[2019-04-12] MEDS ORDERED: TRULICITY1.5 MG/0.5 SUBQ (15:33)
[2019-04-12] MEDS ORDERED: NORCO 5-325 TA1 EAC1 PO (15:33)
[2019-04-12 15:55] LABS: MCH 25.6 pg (26.0-34.0); MCHC 30.7 g/dL (28.0-37.0); MCV 83.4 fL (80.0-100.0); PLATELET COUNT 518 thou/uL (150-400); RBC 1.97 mil/uL (4.50-6.00); RDW 20.6 % (10.5-14.5); WBC 10.1 thou/uL (4.0-11.0)
[2019-04-12 15:59] LABS: HEMATOCRIT 16.4 % (42.0-52.0)
[2019-04-12 16:06] LABS: CALCIUM 9.3 mg/dL (8.5-10.1); CREATININE 1.1 mg/dL (0.7-1.3); POTASSIUM 4.1 mmol/L (3.5-5.1); TROPONIN-I 0.14 ng/mL (<0.06)
[2019-04-12 16:24] LABS: ABSOLUTE NEUTROPHILS 6.1 thou/uL (1.4-8.2); ANISOCYTOSIS 2+; PLATELET ESTIMATE NORMAL
--- NOTE | 2019-04-12 16:50 | EKG ---
[address] [address] ELECTROCARDIOGRAM REPORT Name: DOMINICK MAXWELL Room #: 170-8 ADM IN M.R.#: [id number] Admission: 04/12/19 Attend Phys: Jp Rodriguez Discharge: Date of : 43 Report #: [id number] THIS REPORT FOR: //name// 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 Reforming Unit: NIKOS : 1945 Requested By: Stefan Jackson Order Number: [id number] MD: Tomer Palmer Measurements Intervals [place] Rate: 94 P: 46 CT: 134 QRS: 66 QRSD: 151 T: 156 QT: 431 QTc: 540 Interpretive Statements Sinus rhythm Right bundle branch block Repol abnrm suggests ischemia, diffuse leads Compared to ECG 11/29/2018 18:27:03 Possible ischemia now present Sinus tachycardia no longer present Electronically Signed On 04-12-2019 16:50:24 AERONAUTICAL PROJECT ENGINEER by Tomer Palmer [email or web address] <ELECTRONICALLY SIGNED> By: Tomer Palmer MD 04/12/19 1650 1515 1515 Tomer Palmer MD /EPI
--- NOTE | 2019-04-12 18:28 | NUR ---
PT ORIENTED TO ROOM AND UNIT. BED LOW AND LOCKED, SIDE RAILS UPX3, CALL LIGHT IN REACH. PT'S BLOOD BROUGHT TO UNIT BY PATRIOT MISSILE [employer] DEFENSE ARTILLERY AND BLOOD CONSENT SIGNED IN ER. WILL CONTINUE TO ASSESS.
[2019-04-13 01:12] LABS: HEMOGLOBIN 6.5 gm/dL (14.0-18.0)
--- NOTE | 2019-04-13 01:46 | NUR ---
DR CALLED AND REPORTED HIS HEMOGLOBIN WA 6.5. RECEIVED NEW ODERS FOR 1 MORE UNIT OF BLOOD. ORDER PLACED AND CALLED LAB ABOUT ORDER.
[2019-04-13 02:18] VITALS: BP 107/62; BP 114/66
--- NOTE | 2019-04-13 02:58 | NUR ---
PATIENT ASSESSED AND IS ALERT X4. SKIN WARM AND DRY. RESP EVEN AND UNLABORED. HAS A RIGHT AC SL THAT FLUSHES WELL. STAND UP TO VOID PER URINAL WITH STAND BY ASSIST. DOES HAVE SOME WEAKNESS. ABDOMEN SOFT WITH +BS. BLOOD UNIT #1 INFUSING AND THEN #2 UNIT GIVEN COMPLETED AT 2340. TELE- SHOWS NSR-ST. COMPLAINS OF BACK PAIN. PAIN MED GIVEN WITH GOOD RELIEF. ACCU CHECKS COMPLETED. WAS 183 AFTER HE WAS ON A CLEAR LIQUIDS DIET. REFUSED INSULIN. ON ROOM AIR. CONT CLEAR LIQUID DIET. IV SITE HEALTHY. CONT PLAN OF CARE. DR APPIAH RESULTS FOR HEMOGLOBIN WAS 6.5 1 MORE UNIT OF BLOOD ORDERED. SEE OTHER NOTE.
[2019-04-13 04:26] VITALS: BP 119/70
[2019-04-13 07:01] LABS: HEMATOCRIT 23.7 % (42.0-52.0); HEMOGLOBIN 7.8 gm/dL (14.0-18.0)
[2019-04-13 07:30] VITALS: BP 138/70
--- NOTE | 2019-04-13 09:59 | NUR ---
INITIAL ASSESSMENT: SW reviewed chart and spoke with nursing and attending physician. Pt was admitted from home due to anemia. Pt has had two units of blood. SW met with pt and at bedside. Introduced role of SW. Pt is alert/orientated x 4. Pt and spouse live in their home. 2 steps to enter the home. No steps inside. Pt states that he has a cane and rollator walker at home. Pt has used [facility] in the past for HH services. Pt's requests HH at time of discharge. Pt has become weak and unable to ambulate due to weakness and pain. Pt's states she has scheduled pt to have an MRI and a pain mgmt appt. Pt's PCP is Dr. Almanzar. Plan is for pt to discharge home with HH when medically stable. turnaround planner to fax referral to [facility] for review. [facility] is following to assist as needed with discharge planning.
[2019-04-13] MEDS ORDERED: TRAMADOL 50 MG50 MG PO (10:02)
[2019-04-13] MEDS ORDERED: PEPCID20 MG PO (10:11)
--- NOTE | 2019-04-13 10:30 | NUR ---
DISCHARGE PLANNING. ANTICIPATED DISCHARGE TO HOME. NO DISCHARGE DATE GIVEN AT THIS TIME. HOME HEALTH RECOMMENDED AT DISCHARGE. [facility] CALL PLACED TO [facility], SPOKE WITH DENIS TO NOTIFY OF REFERRAL AND PATIENTS HH NEEDS. DENIS TO REVIEW REFERRAL AND CONTACT CM. FOLLOWING.
[2019-04-13 15:30] VITALS: BP 119/69
[2019-04-13 16:45] VITALS: BP 124/54
--- NOTE | 2019-04-13 17:00 | NUR ---
PATIENT UP IN THE CHAIR WITHOUT DIZZINESS. VSS. TAKING PO DIET WITHOUT NAUSEA OR EMESIS. NO DYSPNEA WITH EXERTION NOTED. STOOL SPECIMEN OBTAINED AND SENT TO LAB. PATIENT AND UPDATED TO POC AND REASSURANCE GIVEN. VERBALIZED UNDERSTANDING.
[2019-04-13 19:04] VITALS: BP 117/53
[2019-04-14 03:41] LABS: HEMATOCRIT 25.4 % (42.0-52.0); HEMOGLOBIN 8.2 gm/dL (14.0-18.0); MCH 27.5 pg (26.0-34.0); MCHC 32.5 g/dL (28.0-37.0); MCV 84.7 fL (80.0-100.0); RBC 2.99 mil/uL (4.50-6.00); RDW 17.4 % (10.5-14.5); WBC 7.6 thou/uL (4.0-11.0)
[2019-04-14 03:45] VITALS: BP 104/58
--- NOTE | 2019-04-14 04:28 | NUR ---
ASSUMED CARE AT 1900. PT IRRITABLE/FRUSTRATED, COMPLAINS THAT HE CAN'T GET COMFORTABLE IN THE BED OR CHAIR, FRUSTRATED THAT HE HAS TO CALL FOR HELP TO USE URINAL. PT DENIES NAUSEA. DENIES DIZZINESS, CHEST PAIN, SOB OR OTHER S/S OF BLEEDING. REPORTS MILD SOB, STATES IT IS BECAUSE HE HASN'T HAD HIS DAILY TRELEGY INHALER; OBTAINED ORDER FOR PRN DUONEB. REPORTS CHRONIC PAIN IN BACK; HAVE GIVEN NORCO ONCE OVERNIGHT. NPO AT MIDNIGHT FOR EGD AND ABD ULTRASOUND TODAY. PROTONIX DRIP INFUSING OVERNIGHT. NO OTHER CONCERNS, WILL CONTINUE TO MONITOR.
[2019-04-14 07:51] VITALS: BP 118/60
[2019-04-14 11:45] VITALS: BP 118/60
--- NOTE | 2019-04-14 13:28 | NUR ---
SW reviewed chart and spoke with nursing and attending physician. Pt to have EGD today. Pt may discharge home later today pending results of EGD. [facility] is following for home health services at time of discharge. Contact info for HH placed in pt's discharge summary. Final discharge orders/summary will need to be faxed to HH when available. Pt's family to provide transportation home. SW is available to assist as needed. [facility] --
[2019-04-14 15:05] VITALS: BP 132/60
--- NOTE | 2019-04-14 18:03 | NUR ---
pt is A&OX3, pt has EGD done today, results show normal esophagus, stomach and duodenum, no evidence of recent GI bleeding, after EGD, PT is tolerated DM diet, pt has medication for back pain, but pt denies ABD pain and n/v at this time, pt's vs are stable, pt 's family stay at pt's bedside.
[2019-04-14 20:00] VITALS: BP 105/59
--- NOTE | 2019-04-14 22:47 | NUR ---
Patient reported he was experiencing pain relief upon assessment at 2014. Later, the patient reported increased pain and was administered hydrocodone to partial relief.
--- NOTE | 2019-04-14 23:42 | NUR ---
Patient is transfering to . Tele has been disconnected. Patient notified of transfer. He advised he did not want his family notified about his transfer tonight- he advised he will contact his family tomorrow.
--- NOTE | 2019-04-15 05:17 | NUR ---
Pt. rested quietly during the night when checked on during frequent rounds. Bed alarm is on.
[2019-04-15 07:20] VITALS: BP 133/69
--- NOTE | 2019-04-15 12:17 | NUR ---
PT. CARE ASSUMED 0700. A&OX4. IV DISCHARGING. DISCHARGE SUMMARY FAXED TO [facility], CONFIRMATION RECEIVED. CALLED TO INFORM ABOUT DISCHARGE. ALL DISCHARGE PAPERWORK SIGNED. PT RECEIVED SHOWER BEFORE DISCHARGING
== END 2019-04-15 14:00 | disposition home health service (06) | DRG 377 ==
LOC: ER 15:04 → 3W 16:41 → EROBS 16:41 → 3W 17:40 → 4W 04-15 00:12
PROVIDERS: Emergency Medicine; ADMIT Hospitalist
PROC: 30233N1 Transfusion of Nonautologous Red Blood Cells into Peripheral Vein, Percutaneous Approach (ICD-10-PCS; principal; 2019-04-12)
PROC: 0DJ08ZZ Inspection of Upper Intestinal Tract, Via Natural or Artificial Opening Endoscopic (ICD-10-PCS; 2019-04-14)
DX: K92.2 Gastrointestinal hemorrhage, unspecified (principal); G92 Toxic encephalopathy; D62 Acute posthemorrhagic anemia; E27.40 Unspecified adrenocortical insufficiency; E86.0 Dehydration; M06.9 Rheumatoid arthritis, unspecified; I25.10 Atherosclerotic heart disease of native coronary artery without angina pectoris; I48.0 Paroxysmal atrial fibrillation; E11.9 Type 2 diabetes mellitus without complications; Z96.652 Presence of left artificial knee joint; J43.9 Emphysema, unspecified; E78.5 Hyperlipidemia, unspecified; F17.210 Nicotine dependence, cigarettes, uncomplicated; G89.29 Other chronic pain; M54.9 Dorsalgia, unspecified; E55.9 Vitamin D deficiency, unspecified; G47.00 Insomnia, unspecified; Z95.5 Presence of coronary angioplasty implant and graft; Z86.010 Personal history of colon polyps; Z87.81 Personal history of (healed) traumatic fracture; Z88.0 Allergy status to penicillin; Z79.899 Other long term (current) drug therapy; Z79.52 Long term (current) use of systemic steroids; Z79.82 Long term (current) use of aspirin
CPT/HCPCS: 10879; 62110; 62900; 70005

== ENCOUNTER → 2019-07-11 | Outpatient (CLI) | payer MEDICARE ==
[~2019-07-11] MED LIST changes: +DOXYCYCLINE 10100 MG PO; +NORCO 5-325 TA1 EAC1 PO; +PEPCID20 MG PO
== END ==
LOC: SJCVC 11:14
DX: I45.10 Unspecified right bundle-branch block (principal); R94.31 Abnormal electrocardiogram [ECG] [EKG]; I10 Essential (primary) hypertension; I25.10 Atherosclerotic heart disease of native coronary artery without angina pectoris; I48.0 Paroxysmal atrial fibrillation; I65.23 Occlusion and stenosis of bilateral carotid arteries; E78.5 Hyperlipidemia, unspecified; I81 Portal vein thrombosis; J43.1 Panlobular emphysema; M06.9 Rheumatoid arthritis, unspecified; Z79.899 Other long term (current) drug therapy

== ENCOUNTER 2019-07-25 03:48 | Emergency (ER) | payer OTHER ==
[~2019-07-25] VITALS: Ht 193 cm; Wt 90.7 kg
[~2019-07-25 03:48] MED LIST changes: -DOXYCYCLINE 10100 MG PO
[2019-07-25] MEDS ORDERED: DOXYCYCLINE 10100 MG PO (05:35)
[2019-07-25 06:03] VITALS: BP 110/49
--- NOTE | 2019-07-25 08:31 | EKG ---
[facility] [place] [address] [place] [address] ELECTROCARDIOGRAM REPORT Name: DOMINICK MAXWELL Room #: DEP [facility]#: [id number] Admission: 07/25/19 Attend Phys: Discharge: 07/25/19 Date of : 43 Report #: [id number] THIS REPORT FOR: cc: Luis Almanzar MD, Rene P. MD Lundgren, Craig H. 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: NO : 1945 Requested By: Odessa Keita Order Number: [id number] MD: Miles Dumont Measurements Intervals [place] Rate: 94 P: 56 [place]: 141 QRS: 67 QRSD: 155 T: 5 QT: 397 QTc: 497 Interpretive Statements Sinus rhythm Right bundle branch block Compared to ECG 04/12/2019 15:15:18 ST segment abnormality no longer present Electronically Signed On 07-25-2019 8:30:27 SEED POTATO ARRANGER by Miles Dumont [email or web address] <ELECTRONICALLY SIGNED> By: Miles Dumont MD, [facility] 07/25/19 0830 0429 0429 Miles Dumont MD, [facility] /EPI
== END 2019-07-25 06:05 | disposition home or self-care (01) ==
LOC: ER 03:48
DX: J06.9 Acute upper respiratory infection, unspecified (principal); J44.9 Chronic obstructive pulmonary disease, unspecified; G89.29 Other chronic pain; I10 Essential (primary) hypertension; I25.10 Atherosclerotic heart disease of native coronary artery without angina pectoris; I48.0 Paroxysmal atrial fibrillation; E11.9 Type 2 diabetes mellitus without complications; E78.5 Hyperlipidemia, unspecified; F17.210 Nicotine dependence, cigarettes, uncomplicated; Z96.652 Presence of left artificial knee joint; Z79.899 Other long term (current) drug therapy; Z88.0 Allergy status to penicillin; Z88.8 Allergy status to other drugs, medicaments and biological substances

== ENCOUNTER → 2019-10-23 | Outpatient (CLI) | payer OTHER ==
[~2019-10-23] MED LIST changes: +DOXYCYCLINE 10100 MG PO
== END ==
LOC: SJCVC 14:14
DX: I45.10 Unspecified right bundle-branch block (principal); R94.31 Abnormal electrocardiogram [ECG] [EKG]; I25.10 Atherosclerotic heart disease of native coronary artery without angina pectoris; I48.0 Paroxysmal atrial fibrillation; I65.23 Occlusion and stenosis of bilateral carotid arteries; I10 Essential (primary) hypertension; E78.5 Hyperlipidemia, unspecified; I81 Portal vein thrombosis; J43.1 Panlobular emphysema; M06.9 Rheumatoid arthritis, unspecified; Z79.84 Long term (current) use of oral hypoglycemic drugs; Z79.899 Other long term (current) drug therapy; Z82.49 Family history of ischemic heart disease and other diseases of the circulatory system; Z87.891 Personal history of nicotine dependence

== ENCOUNTER → 2019-11-09 | Outpatient (CLI) | payer OTHER | LOC: SJCVCIMAG 09:30 | PROVIDERS: ATTEND Internal Medicine | DX: I08.0 Rheumatic disorders of both mitral and aortic valves (principal); I11.9 Hypertensive heart disease without heart failure; I25.10 Atherosclerotic heart disease of native coronary artery without angina pectoris; I48.0 Paroxysmal atrial fibrillation; J44.9 Chronic obstructive pulmonary disease, unspecified; F17.200 Nicotine dependence, unspecified, uncomplicated ==

== ENCOUNTER → 2019-11-10 | Outpatient (CLI) | payer OTHER | LOC: SJCVCIMAG 09:42 | PROVIDERS: ATTEND Internal Medicine | DX: Z01.810 Encounter for preprocedural cardiovascular examination (principal); I45.10 Unspecified right bundle-branch block; I48.91 Unspecified atrial fibrillation; I25.10 Atherosclerotic heart disease of native coronary artery without angina pectoris; I10 Essential (primary) hypertension; E78.5 Hyperlipidemia, unspecified; J44.9 Chronic obstructive pulmonary disease, unspecified; E11.9 Type 2 diabetes mellitus without complications; Z79.4 Long term (current) use of insulin; Z98.61 Coronary angioplasty status; Z86.718 Personal history of other venous thrombosis and embolism; Z79.899 Other long term (current) drug therapy; Z88.0 Allergy status to penicillin; Z88.8 Allergy status to other drugs, medicaments and biological substances ==

== ENCOUNTER → 2020-01-22 | Outpatient (CLI) | payer OTHER | LOC: SJCVC 14:28 | PROVIDERS: ATTEND Internal Medicine | DX: I25.10 Atherosclerotic heart disease of native coronary artery without angina pectoris (principal); R94.31 Abnormal electrocardiogram [ECG] [EKG]; I45.10 Unspecified right bundle-branch block; I48.0 Paroxysmal atrial fibrillation; I10 Essential (primary) hypertension; I65.23 Occlusion and stenosis of bilateral carotid arteries; E11.9 Type 2 diabetes mellitus without complications; M06.9 Rheumatoid arthritis, unspecified; J43.1 Panlobular emphysema; F17.210 Nicotine dependence, cigarettes, uncomplicated; Z79.899 Other long term (current) drug therapy ==

== ENCOUNTER → 2020-02-12 | Outpatient (CLI) | payer OTHER | LOC: SJCVC 14:20 | PROVIDERS: ATTEND Internal Medicine | DX: I25.10 Atherosclerotic heart disease of native coronary artery without angina pectoris (principal); I48.0 Paroxysmal atrial fibrillation; I10 Essential (primary) hypertension; I65.23 Occlusion and stenosis of bilateral carotid arteries; E11.9 Type 2 diabetes mellitus without complications; J43.1 Panlobular emphysema; M06.9 Rheumatoid arthritis, unspecified; F17.210 Nicotine dependence, cigarettes, uncomplicated; Z79.84 Long term (current) use of oral hypoglycemic drugs; Z79.899 Other long term (current) drug therapy ==

== ENCOUNTER 2020-05-13 17:13 | Inpatient (IN) | payer OTHER ==
[~2020-05-13] VITALS: Ht 190.5 cm; Wt 83.9 kg
[2020-05-13 17:13] VITALS: BP 183/96
[2020-05-13 17:39] LABS: ABSOLUTE NEUTROPHILS 14.1 thou/uL (1.4-8.2); BASOPHILS 0.6 % (0.0-2.0); EOSINOPHILS 1.7 % (0.0-3.0); HEMATOCRIT 32.8 % (42.0-52.0); HEMOGLOBIN 11.3 gm/dL (14.0-18.0); LYMPHOCYTES 4.4 % (24.0-44.0); MCH 32.2 pg (26.0-34.0); MCHC 34.6 g/dL (28.0-37.0); MCV 93.1 fL (80.0-100.0); MONOCYTES 13.1 % (1.0-8.0); PLATELET COUNT 453 thou/uL (150-400); POLYS 80.2 % (36.0-66.0); RBC 3.52 mil/uL (4.50-6.00); RDW 15.2 % (10.5-14.5); WBC 17.6 thou/uL (4.0-11.0)
[2020-05-13 17:44] LABS: CALCIUM 9.1 mg/dL (8.5-10.1); POTASSIUM 4.4 mmol/L (3.5-5.1)
[2020-05-13 17:52] LABS: ALBUMIN 2.8 g/dL (3.4-5.0); TOTAL BILIRUBIN 0.4 mg/dL (0.2-1.0); TOTAL PROTEIN 7.8 g/dL (6.4-8.2)
[2020-05-13 19:39] LABS: URINE BILIRUBIN NEGATIVE (Negative); URINE BLOOD TRACE (Negative); URINE CLARITY CLEAR; URINE COLOR YELLOW; URINE GLUCOSE-RANDOM* NEGATIVE (Negative); URINE KETONES NEGATIVE (Negative); URINE LEUKOCYTES-REFLEX NEGATIVE (Negative); URINE NITRITE-REFLEX NEGATIVE (Negative); URINE PROTEIN (DIPSTICK) TRACE (Negative); URINE SPECIFIC GRAVITY >= 1.030 (1.005-1.035); URINE UROBILINOGEN 0.2 E.U./dl (0.2-1.0)
[2020-05-13 22:24] VITALS: BP 118/66
--- NOTE | 2020-05-13 23:30 | NUR ---
Pt. arrived to the unit from the emergency room accompanied by staff via stretcher. He was incontinent of urine and was very fussy at the staff. He did not want to be cleaned up and kept saying he did not want to be here. Carolyn care was given. Admission assessment and history was completed. Pt. refused to sign his admission paperwork. He has his wallet and pt. did not want it locked up with security when offered. Left in his jeans pocket per his request. Sacral area is pink in color. Ivp pain med given (see emar) for c/o generalized pain with some relief noted.
[2020-05-13 23:38] VITALS: BP 135/78
--- NOTE | 2020-05-14 07:17 | EKG ---
[place] [address] [address] [facility] [place] [address] ELECTROCARDIOGRAM REPORT Name: DOMINICK MAXWELL Room #: 454-P ADM IN .R.#: [id number] Admission: 05/13/20 Attend Phys: Jp Rodriguez Discharge: Date of : 43 Report #: [id number] [facility] ED Test Date: 2020-05-13 Test Time: 17:59:01 Pat Name: DOMINICK MAXWELL Department: Room: [facility] Gender: M Low Pressure Firer: frederick : 1945 Requested By: Clarita Whitman Order Number: [id number] MD: Jonathan Lopez Measurements Intervals [place] Rate: 110 P: 57 [place]: 129 QRS: 64 QRSD: 141 T: 3 QT: 362 QTc: 490 Interpretive Statements Sinus tachycardia Right bundle branch block Compared to ECG 07/25/2019 04:29:50 Sinus rhythm no longer present Electronically Signed On 05-14-2020 7:17:26 PYTHON ENGINEER by Jonathan Lopez [email or web address] <ELECTRONICALLY SIGNED> By: Jonathan Lopez MD, [facility] 05/14/20 0717 1759 1759 Jonathan Lopez MD, [facility] /EPI
[2020-05-14 08:05] LABS: HEMATOCRIT 29.7 % (42.0-52.0); HEMOGLOBIN 9.9 gm/dL (14.0-18.0); MCH 31.4 pg (26.0-34.0); MCHC 33.4 g/dL (28.0-37.0); MCV 94.1 fL (80.0-100.0); RBC 3.16 mil/uL (4.50-6.00); RDW 15.1 % (10.5-14.5); WBC 15.7 thou/uL (4.0-11.0)
[2020-05-14 08:16] LABS: CALCIUM 8.4 mg/dL (8.5-10.1); CREATININE 0.8 mg/dL (0.7-1.3)
[2020-05-14 08:19] LABS: POTASSIUM 3.2 mmol/L (3.5-5.1)
[2020-05-14 08:32] VITALS: BP 110/60
--- NOTE | 2020-05-14 11:07 | NUR ---
ORDERS RECEIVED AND CHART REVIEWED. SPOKE TO Pt'S NURSE, BRENT, REQUESTED POST-OP ORDERS Pt IS CURRENTLY IN SURGERY. SHE STATES THAT SHE WILL DO SO
--- NOTE | 2020-05-14 12:55 | NUR ---
PT A&OX4, VSS. PATIENT RECEIVED I&D TODAY, BACK TO FLOOR APPROX 1210, VSS, ROOM AIR, DENIES PAIN.
--- NOTE | 2020-05-14 14:02 | NUR ---
PT ADMITTED RELATED TO RECTAL ABSCESS. CM REVIEWED CHART AND SPOKE WITH CARE TEAM. CM CALLED AND SPOKE WITH PT OVER THE PHONE THIS DAY. PT APPEARED TO BE A&O X4. CM ROLE INTRODUCED. PT INDICATED HE LIVES IN A MOBILE HOUSE WITH HIS AND DTR. PT INDICATED THERE IS A RAMP TO ENTER. PT INDICATED HE HAD BEEN USING A CANE OR A 4WW TO ASSIST WITH MOBILITY CUSTOMER SOLUTIONS ARCHITECT. PT INDICATED HE HAD BEEN INDEPENDENT WITH ADLS CUSTOMER SOLUTIONS ARCHITECT. PT INDICATED NO RECENT HH HX AND NO SNF HX. PT INDICATED HE PLANS TO RETURN HOME ONCE MEDICALLY STABLE. PT IS ON IV VANC AND LEVAQUIN. PT HAD SURGICAL I&D TODAY. CM TO FOLLOW INDICATED WITH DC PLANNING.
[2020-05-14 19:32] VITALS: BP 99/65
--- NOTE | 2020-05-15 04:31 | NUR ---
ASSUMED CARE OF PT AT APPROXIMATELY 0300. PT IS A/O X4 AND IS UP WITH ASSISTANCE. PT AT THIS TIME IS CURRENTLY IN HIS BED AND APPEARS TO BE SLEEPING. ROOM AIR, REMAINS SR ON THE MONITOR. FALL PRECAUTIONS IMPLEMENTED, CALL LIGHT IS WITHIN REACH.
[2020-05-15 07:43] VITALS: BP 140/52
--- NOTE | 2020-05-15 12:22 | HC ---
[facility] [address] [place] [address] CONSULTATION Name: MAXWELLDOMINICK Room #: 454-P [facility] IN .R.#: [id number] Admission: 05/13/20 Attend Phys: Jp Rodriguez Discharge: Date of : 43 Report #: [id number] THIS REPORT FOR: cc: Luis Almanzar MD, Rene P. MD Barry, Joseph W. MD ~ DATE OF SERVICE: 05/14/2020 INFECTIOUS DISEASE CONSULTATION ATTENDING PHYSICIAN: Jp Rodriguez M.D. REASON FOR EVALUATION: Perineal abscess. Chart reviewed, patient examined. HISTORY OF PRESENT ILLNESS: This is a 74-year-old man with extensive medical history including diabetes mellitus, complicated by vasculopathy, also has COPD with emphysematous changes, rheumatoid arthritis, on immunosuppressive therapy with anti-inflammatories, who developed a lesion over the right posterior perineal area last 2-3 days prior to admission, he noted onset of pain, made it difficult to sit without any antecedent injury. Due to its severity and the progressive nature, he did present to the Emergency Room. Imaging suggested a mixed gas and fluid collection in the right posterior perineal soft tissues suggestive of perianal abscess. He noted he really was not systemically ill in terms of fever or chills. Appetite has been poor for a long period of time, although his weight has been unchanged. Denies any changes in his overall breathing. He does note he has COPD, takes breathing treatments. Due to the urgent nature of it, he did undergo operative procedure today. I have not seen the operative report thus far. He is seen postop, is empirically started on combination therapy with metronidazole, levofloxacin and vancomycin. Blood cultures collected at the time of admission are sterile thus far. He is generally lucid. ALLERGIES: LISTED TO PENICILLIN, which he describes as a rash, ATORVASTATIN as well. CURRENT MEDICATIONS: Include enoxaparin, Flagyl, insulin, levofloxacin, albuterol, p.r.n. analgesics and antiemetics. PAST MEDICAL HISTORY: As described above, diabetes mellitus type 2, complicated by vasculopathy, paroxysmal atrial fibrillation, has coronary artery disease with previous stenting, has underlying COPD, dyslipidemia, rheumatoid arthritis. SOCIAL HISTORY: Smokes cigarettes. No ethanol. No illicit drug use. [address] [address] CONSULTATION Name: DOMINICK MAXWELL Ivy Room #: 454-[facility] IN ..#: [id number] Admission: 05/13/20 Attend Phys: Jp Rodriguez Discharge: Date of : 43 Report #: [id number] FAMILY HISTORY: Noncontributory. REVIEW OF SYSTEMS: Otherwise, unremarkable 10-point review of systems. PHYSICAL EXAMINATION: GENERAL: He is alert, in tcpk-bn-plbygkdm distress, appears somewhat chronically ill. VITAL SIGNS: Temperature 99.6, pulse 93, respirations 18, blood pressure 110/60. SKIN: Warm, dry, no rashes. HEENT: Normocephalic. Extraocular muscles intact. NECK: Supple. LUNGS: Diminished breath sounds. He has got some scattered crackles at the bases. HEART: Irregular, distant. ABDOMEN: Obese. Mildly distended, soft, nontender. GENITOURINARY: Deferred. RECTAL: Deferred. LABORATORY DATA: Electrolytes: Sodium 138, potassium 3.2, chloride 103, bicarbonate 24, anion gap of 11, BUN and creatinine 9 and 0.8, glucose of 153. Estimated GFR of 94. Blood cultures sterile thus far. CBC: White count of 15.7, H and H 9.9 and 29.7, platelets of 388. Coronavirus testing was negative. CT abdomen and pelvis, there is a 4.1 x 6.7 x 6 cm mixed gas and fluid collection within the right posterior perineal soft tissues consistent with a perianal abscess well below the levator ani musculature. Urinalysis unremarkable. Lactic acid 1.8 initially. Chest x-ray, no acute process. LFTs unremarkable. Albumin of 2.8, total protein 7.8, estimated GFR 73. Initial CBC: White count of 17.6, H and H 11.3 and 32.8, and platelets of 453. ASSESSMENT: Perianal abscess. Based on the presentation seems likely that it has originated deep, exposed to a direct skin issue. We will know for certain. We will continue the Levaquin and metronidazole. At this point, he has been debulked. I have not seen the wound, presumably it is packed. At this point, he is not overtly toxic. We will continue to monitor expectantly, certainly at risk. We will add incentive spirometry, optimize his nutritional status. <ELECTRONICALLY SIGNED> By: Bruno Dugan MD 05/15/20 1222 1236 1357 Bruno Dugan MD /nt
[2020-05-15 14:36] LABS: HEMATOCRIT 29.7 % (42.0-52.0); HEMOGLOBIN 9.9 gm/dL (14.0-18.0); MCH 31.4 pg (26.0-34.0); MCHC 33.2 g/dL (28.0-37.0); MCV 94.7 fL (80.0-100.0); RBC 3.14 mil/uL (4.50-6.00); RDW 15.5 % (10.5-14.5); WBC 12.1 thou/uL (4.0-11.0)
--- NOTE | 2020-05-15 15:04 | NUR ---
PT IS POD #1 FROM SURGICAL I&D. PT IS ON TWO IV ABX AT THIS TIME. PT WAS RECEPTIVE TO SERVICES FOR FOLLOW UP WC UPON DC. CHART INDICATED HE HAD USED [facility] IN PAST. HE WAS AGREEABLE WITH REFERRAL BEING SENT TO [facility] FOR REVIEW FOR POSSIBLE SERVICES. REFERRAL SENT. AWAITING ID INDICATION FOR ABX NEEDS UPON DC. CM TO FOLLOW INDICATED WITH DC PLANNING.
[2020-05-15 15:15] LABS: CALCIUM 8.1 mg/dL (8.5-10.1); CREATININE 0.9 mg/dL (0.7-1.3); POTASSIUM 3.8 mmol/L (3.5-5.1)
--- NOTE | 2020-05-15 16:45 | NUR ---
FA[facility]ED REFERRAL TO [facility] RECEIVED CONFIRMATION AND SPOKE WITH KENYA IN INTA[place].
[2020-05-15 17:00] VITALS: BP 126/51
[2020-05-15 20:10] VITALS: BP 124/60
--- NOTE | 2020-05-15 20:53 | NUR ---
PT A&OX4, VSS, PAIN IN ERIN AREA. NEW IV PLACED RIGHT WRIST, SALINE LOCKED. PATIENT USES URINAL AND HAD BM TODAY. NO SIGNS OF DISTRESS. WILL CONTINUE TO MONITOR.
--- NOTE | 2020-05-16 07:22 | NUR ---
VSS-AFEBRILE. C/O SIGNIFICANT ARTHRITIC PAIN OVERNIGHT, IV FENTANYL INEFFECTIVE. CALL PLACED TO PHYSICIAN TO REQUEST RESTART DAILY PREDNISONE WELL PO HYDROCODONE. ANAL ABCESS SITE DRAINING SMALL AMOUNT OF SEROSANGUINEOUS FLUID. CALLS APPROPRIATELY FOR ANY NEEDED ASSISTANCE.
[2020-05-16 07:32] VITALS: BP 131/65
[2020-05-16] MEDS ORDERED: LEVOFLOXACIN750 MG PO ×2 (08:27→13:16)
[2020-05-16] MEDS ORDERED: FLAGYL500 M1 PO ×2 (08:28→13:16)
[2020-05-16] MEDS ORDERED: COLACE100 MG PO ×2 (08:28→13:16)
[2020-05-16 09:34] VITALS: BP 131/65
[2020-05-16 11:50] VITALS: BP 131/65
--- NOTE | 2020-05-16 12:46 | NUR ---
rehabilitation program manager told the staff that DC workforce planner had done fax, the staff did not need to fax anything but to tell the about medication Steroid and Hydrocodone.
[2020-05-16 13:26] VITALS: BP 131/65
--- NOTE | 2020-05-16 14:04 | NUR ---
Discharge home today with [facility] and home health. Spoke with Valencia Sahu [phone] and informed of the plan. had questions of why patient had not been on steroids and hydrocodone during this admission. Told her I would notify the attending MD and then spoke with the nurse Ekta and confirmed above who will call for pickup time.
--- NOTE | 2020-05-16 14:14 | NUR ---
Patient discharge, prescription was sent to patient's pharmacy.
--- NOTE | 2020-05-16 14:26 | NUR ---
PT DISCHARGING TODAY TO HOME WITH [facility] FAXED DC ORDERS/SUMMARY SPOKE WITH KENYA IN INTAKE SHE RECEIVED ORDERS AND WILL ARRANGE VISITS WITH PT.
--- NOTE | 2020-05-20 10:28 | O ---
[facility] [address] [place] [address] OPERATIVE REPORT Name: MAXWELLDOMINICK Room #: 454-P [facility]#: [id number] Admission: 05/13/20 Attend Phys: Jp Rodriguez Discharge: 05/16/20 Date of : 43 Report #: [id number] THIS REPORT FOR: cc: Luis Almanzar MD, Rene P. MD Patterson,Dante Rivas MD ~ DATE OF SERVICE: 05/14/2020 PREOPERATIVE DIAGNOSIS: Right perirectal abscess. POSTOPERATIVE DIAGNOSIS: Right perirectal abscess. OPERATION: Incision and drainage of ischiorectal abscess. SURGEON: Dante Tavarez MD ANESTHESIA: General. ESTIMATED BLOOD LOSS: Minimal. SPECIMEN: None. DESCRIPTION OF PROCEDURE: After informed consent was obtained, the patient was brought to the operating room and placed supine. SCDs were placed and working and general anesthesia was induced. The patient was placed in lithotomy position. The area was then prepped and draped in the usual sterile fashion with Betadine. He had a large area of fluctuance on the right side, approximately 1 cm from the anal verge. This was incised with cautery. Incision was made about 3 cm. Immediately, there was a gipson of pus. Pus was suctioned out. Loculations were then broken up bluntly. The area was then copiously irrigated with normal saline and packed with sterile gauze. Sterile dressings were applied. COMPLICATIONS: None. DISPOSITION: The patient was taken to recovery in satisfactory condition. <ELECTRONICALLY SIGNED> By: Dante Tavarez MD 05/20/20 1028 1229 1243 Dante Tavarez MD /nt
== END 2020-05-16 16:48 | disposition home health service (06) | DRG 853 ==
LOC: ER 17:13 → 4W 21:40 → EROBS 21:40 → 4W 23:05
PROVIDERS: Nurse Practitioner Family; Physician Assistant; ADMIT Hospitalist; ATTEND Hospitalist
PROC: 0J9B0ZZ Drainage of Perineum Subcutaneous Tissue and Fascia, Open Approach (ICD-10-PCS; principal; 2020-05-13)
DX: A41.9 Sepsis, unspecified organism (principal); E43 Unspecified severe protein-calorie malnutrition; K61.2 Anorectal abscess; I25.10 Atherosclerotic heart disease of native coronary artery without angina pectoris; I48.0 Paroxysmal atrial fibrillation; J44.9 Chronic obstructive pulmonary disease, unspecified; E78.5 Hyperlipidemia, unspecified; M06.9 Rheumatoid arthritis, unspecified; E11.9 Type 2 diabetes mellitus without complications; I10 Essential (primary) hypertension; M48.00 Spinal stenosis, site unspecified; R53.81 Other malaise; R63.4 Abnormal weight loss; M54.5 Low back pain; G47.00 Insomnia, unspecified; G31.84 Mild cognitive impairment of uncertain or unknown etiology; Z88.0 Allergy status to penicillin; Z68.23 Body mass index [BMI] 23.0-23.9, adult; Z79.84 Long term (current) use of oral hypoglycemic drugs; Z88.8 Allergy status to other drugs, medicaments and biological substances; Z95.5 Presence of coronary angioplasty implant and graft; Z20.828 Contact with and (suspected) exposure to other viral communicable diseases
CPT/HCPCS: 10045; 50010; 50101; 50386; 50445; 62110; 62900; 70005

== ENCOUNTER → 2020-07-15 | Outpatient (CLI) | payer OTHER ==
[~2020-07-15] MED LIST changes: +COLACE100 MG PO; +FLAGYL500 M1 PO; +LEVOFLOXACIN750 MG PO
== END ==
LOC: CAT 07-04 12:17
PROVIDERS: ATTEND Internal Medicine
DX: Z12.2 Encounter for screening for malignant neoplasm of respiratory organs (principal); R91.8 Other nonspecific abnormal finding of lung field; Z87.891 Personal history of nicotine dependence

== ENCOUNTER → 2020-07-15 | Outpatient (CLI) | payer OTHER | LOC: SJCVC 13:31 | PROVIDERS: ATTEND Internal Medicine | DX: R94.31 Abnormal electrocardiogram [ECG] [EKG] (principal); I45.10 Unspecified right bundle-branch block; I25.10 Atherosclerotic heart disease of native coronary artery without angina pectoris; I48.0 Paroxysmal atrial fibrillation; I10 Essential (primary) hypertension; I65.23 Occlusion and stenosis of bilateral carotid arteries; E11.9 Type 2 diabetes mellitus without complications; M06.9 Rheumatoid arthritis, unspecified; J43.1 Panlobular emphysema; E78.5 Hyperlipidemia, unspecified; R06.00 Dyspnea, unspecified; E78.00 Pure hypercholesterolemia, unspecified; F17.210 Nicotine dependence, cigarettes, uncomplicated; Z86.718 Personal history of other venous thrombosis and embolism; Z79.899 Other long term (current) drug therapy; Z88.0 Allergy status to penicillin ==

== ENCOUNTER → 2020-08-16 | Outpatient (CLI) | payer OTHER | LOC: LAB 12:33 → CAT 12:33 | PROVIDERS: ATTEND Pediatrics | DX: Z20.822 Contact with and (suspected) exposure to COVID-19 (principal); Z01.812 Encounter for preprocedural laboratory examination; R91.1 Solitary pulmonary nodule ==

== ENCOUNTER 2020-08-22 06:38 | Outpatient (CLI) | payer OTHER ==
[~2020-08-22] VITALS: Ht 193 cm; Wt 90.3 kg
[~2020-08-22 06:38] MED LIST changes: +MULTI VITAMIN1 EACH PO; +PREDNISONE 5 MG5 M1 PO
[2020-08-22 09:56] VITALS: BP 123/69
--- NOTE | 2020-08-26 16:06 | PATH ---
[facility] [address] [address] PATHOLOGY RPT PROCEDURE Name: PADMAJA MAXWELL YSABEL Room #: DEP [facility]..#: [id number] Admission: 08/22/20 Date of : 43 Discharge: 08/22/20 Report #: [id number] Path Case #: [id number] [facility] Accession Number: [id number] . 01 Material submitted: . PART A: lung - CARL GENCUT TISSUE BIOPSY PART B: lung - RUL GENCUT/BIOPSY TISSUE SAMPLE . 01 Clinical history: . PUL/BRONCHOSCOPY/LT AND RT UPPER LOBE LUNG MASS A: BRONCHOSCOPY, CARL GENCUT/BIOPSY TISSUE SAMPLE, LUNG MASS,RESP/BRONCH BRUSH B: BRONCHOSCOPY, RUL GENCUT/BIOPSY TISSUE SAMPLE, LUNG MASS,RESP/BRONCH BRUSH . 02 Diagnosis: A. Lung, left upper lobe, GenCut/biopsy: - Scattered rare markedly atypical epithelial cells within alveolar spaces, cannot exclude neoplasm (please see comment). - Fragments of benign alveolated lung parenchyma. - Mild chronic inflammation. - Negative for malignancy. . B. Lung, right upper lobe, GenCut/biopsy: - INVASIVE MODERATELY DIFFERENTIATED SQUAMOUS CELL CARCINOMA. (IUV:pit 08/26/2020) P 08/26/2020 1235 Local . 02 Comment: A. Scattered rare markedly atypical epitheloid cells with a low nuclear to cytoplasmic ratio; however, markedly enlarged nuclei are identified within the alveolar spaces. The scant nature precludes further evaluation or a definitive diagnosis. . B. Properly controlled immunohistochemical stains are performed on block B1 and included TTF-1 as well as p40. The neoplastic cells show nuclear reactivity with p40 supporting the diagnosis rendered. Dr. Barb Montoya has seen a artist representative slide of this part of the case and concurs with my diagnosis. Findings of this case are discussed with Dr. David Scott at 2:31 pm on 08/23/2020. (IUV:pit 08/26/2020) . 02 Electronically signed: . Krista Damon MD, Pathologist NPI- [id number] . 01 Gross description: [place] [address] PATHOLOGY RPT PROCEDURE Name: PADMAJA MAWXELL Room #: DEP [facility] King#: [id number] Admission: 08/22/20 Date of : 43 Discharge: 08/22/20 Report #: [id number] Path Case #: [id number] A. The specimen is received in formalin, labeled "Padmaja Maxwell, left upper lobe gen cut tissue biopsy" and consist of multiple soft ridley tissue cores measuring up to 0.2 x less than 0.1cm entirely submitted in A1. . B. The specimen is received in formalin, labeled "Padmaja Maxwell, right upper lobe gen cut biopsy tissue" and consist of multiple soft ridley tissue cores measuring up to 0.3 x less than 0.1cm entirely submitted in B1.([facility]; 08/22/2020) MARTHA/MARTHA 08/22/2020 2323 Local . 02 Pathologist provided ICD-10: J98.4, C34.11 . 02 CPT . 766009, 669164, I82080, K15381 Specimen Comment: A courtesy copy of this report has been sent to [phone] Specimen Comment: [phone] Specimen Comment: Report sent to / DR IBARRA Performed at: 01 [facility] [address] [place] [address] [address], [place] [id number] MD Tay Altamirano MD Phone: [phone] Performed at: [address] [id number] MD Krista Damon MD Phone: [phone]
== END 2020-08-22 12:15 | disposition home or self-care (01) ==
LOC: PUL → TBA 06:39 → PUL 08:43
PROVIDERS: ATTEND Pediatrics
DX: C34.11 Malignant neoplasm of upper lobe, right bronchus or lung (principal); J98.4 Other disorders of lung; J43.9 Emphysema, unspecified; I25.10 Atherosclerotic heart disease of native coronary artery without angina pectoris; I48.0 Paroxysmal atrial fibrillation; E11.9 Type 2 diabetes mellitus without complications; E78.5 Hyperlipidemia, unspecified; D50.0 Iron deficiency anemia secondary to blood loss (chronic); F17.210 Nicotine dependence, cigarettes, uncomplicated; Z98.890 Other specified postprocedural states; Z96.652 Presence of left artificial knee joint; Z85.828 Personal history of other malignant neoplasm of skin; Z79.899 Other long term (current) drug therapy
CPT/HCPCS: 62110; 62900; 70005

== ENCOUNTER → 2020-09-11 | Outpatient (CLI) | payer OTHER | LOC: SJCVC 13:13 | PROVIDERS: ATTEND Internal Medicine | DX: R94.31 Abnormal electrocardiogram [ECG] [EKG] (principal); I45.10 Unspecified right bundle-branch block; I25.10 Atherosclerotic heart disease of native coronary artery without angina pectoris; I48.0 Paroxysmal atrial fibrillation; I10 Essential (primary) hypertension; I65.23 Occlusion and stenosis of bilateral carotid arteries; E11.9 Type 2 diabetes mellitus without complications; M06.9 Rheumatoid arthritis, unspecified; J43.1 Panlobular emphysema; E78.5 Hyperlipidemia, unspecified; C34.90 Malignant neoplasm of unspecified part of unspecified bronchus or lung; F17.210 Nicotine dependence, cigarettes, uncomplicated; Z98.890 Other specified postprocedural states; Z88.0 Allergy status to penicillin; Z79.84 Long term (current) use of oral hypoglycemic drugs; Z79.899 Other long term (current) drug therapy; Z82.49 Family history of ischemic heart disease and other diseases of the circulatory system ==

== ENCOUNTER → 2020-09-13 | Outpatient (CLI) | payer OTHER | LOC: LAB 12:29 | PROVIDERS: ATTEND Internal Medicine | DX: Z01.812 Encounter for preprocedural laboratory examination (principal); Z20.822 Contact with and (suspected) exposure to COVID-19 ==

== ENCOUNTER → 2020-09-16 | Outpatient (CLI) | payer OTHER ==
--- NOTE | 2020-09-29 18:29 | PFR/MVV ---
[facility] [address] [address] [place] [address] PULMONARY FUNCTION MVV/REPORT Name: DOMINICK MAXWELL Room #: REG [facility].#: [id number] Admission: 09/16/20 Attend Phys: Angel Dunlap MD Discharge: Date of : 43 Report #: [id number] THIS REPORT FOR: //name// >> SPIROMETRY: (BTPS) Height: 73 in cm Weight: 202 lbs kg Exam Date: 09/16/20 PRE-RX POST-RX PRED BEST %PRED BEST %PRED %CHG FVC LITERS . 4.66 . 3.36 . 72 . 3.73 . 80 . 11 FEV1 LITERS . 3.02 . 2.00 . 66 . 1.95 . 65 . -2 FEV1/FVC % . 66 . 59 . 90 . 53 . 80 . -12 MLK22-04% L/Sec . 2.52 . 0.96 . 38 . 0.68 . 27 . -29 PEF L/SEC . 8.77 . 4.62 . 53 . 5.46 . 62 . 18 FEF50/FIF50 UNITLESS . <1.00 . 0.57 . . 0.45 . . -22 MVV L/Min . 130 . 45 . 35 f 1/Min . . 85 . . >> LUNG VOLUMES: (BTPS) PRE-RX POST-RX PRED AVG %PRED AVG %PRED %CHG VC Liters . 4.66 . 3.44 . 74 . . . TLC Liters . 7.14 . 8.62 . 121 . . . RV Liters . 2.85 . 5.18 . 182 . . . RV/TLC % . 43 . 60 . 140 . . . FRC [address] Liters . 4.06 . 5.54 . 139 . . . FRC N2 Liters . 4.06 . . . . . ERV Liters . 1.59 . 0.47 . 29 . . . IC Liters . 3.18 . 2.68 . 84 . . . >> DIFFUSION: DLCO ml/Min/mmHg . 22.1 . 22.5 . 102 . . . DL Carin ml/Min/mmHg . 22.1 . 22.5 . 102 . . . DLCO/VA ml/Min/mmHg . 3.34 . 3.01 . 90 . . . VA Liters . . 7.48 . . . . COMMENTS: COMMENTS: >> RESISTANCE: [facility] [address] [place] [address] PULMONARY FUNCTION MVV/REPORT Name: DOMINICK MAXWELL YSABEL Room #: REG [facility] King#: [id number] Admission: 09/16/20 Attend Phys: Angel Dunlap MD Discharge: Date of : 43 Report #: [id number] PRE-RX PRED AVG %PRED Raw Total cmH20/L/Sec . . 5.52 . Raw Insp cmH20/L/Sec . . 6.97 . Raw Exp cmH20/L/Sec . . 7.12 . Raw cmH20/L/Sec . 1.07 . 3.96 . 369 Gaw L/Sec/cmH20 . 0.975 . 0.253 . 26 sRaw cmH20 Sec . 4.35 . 25.56 . 587 sGaw l/cmH20 Sec . 0.230 . 0.039 . 17 Vtq Liters . . 6.46 . # = OUTSIDE 95% CONFIDENCE INTERVAL CALIBRATION: PRED: 3.00 ACTUAL: EXP 3.01 INSP 3.02 [facility] [place] [address] N-1804-4 >> INTERPRETATION/IMPRESSION: DOC #: [id number] David Scott M.D. DATE OF SERVICE: 09/16/2020 PULMONARY FUNCTION STUDIES FEV1 is 2.00 liters (66%). The FVC is 3.36 liters (72% predicted). FEV1/FVC ratio is 59%. There is an intermediate response to bronchodilator therapy. FVC increased to 3.73 liters (11% change). Total lung capacity is 8.62 liters (121%). RV is 5.18 liters (182%). Diffusing capacity is 102%. IMPRESSION: Pulmonary function studies are consistent with a moderate obstructive airflow defect with hyperinflation and air trapping. There is some intermediate response to bronchodilator therapy with an 11% change or increase in FVC. Diffusing capacity is normal. David BATISTAS/AMOR <ELECTRONICALLY SIGNED> By: David Scott MD 09/29/20 1829 David Scott MD /nt
== END ==
LOC: RAD 09:10
PROVIDERS: ATTEND Internal Medicine
DX: C34.10 Malignant neoplasm of upper lobe, unspecified bronchus or lung (principal); J98.11 Atelectasis; J44.9 Chronic obstructive pulmonary disease, unspecified; R91.8 Other nonspecific abnormal finding of lung field; R06.02 Shortness of breath; Z88.0 Allergy status to penicillin

== ENCOUNTER 2020-11-04 18:29 | Emergency (ER) | payer OTHER ==
[~2020-11-04] VITALS: Ht 190.5 cm; Wt 104.3 kg
[2020-11-04 20:17] LABS: ABSOLUTE NEUTROPHILS 4.4 thou/uL (1.4-8.2); BASOPHILS 0.6 % (0.0-2.0); EOSINOPHILS 3.4 % (0.0-3.0); HEMATOCRIT 34.1 % (42.0-52.0); HEMOGLOBIN 11.9 gm/dL (14.0-18.0); LYMPHOCYTES 14.9 % (24.0-44.0); MCHC 34.9 g/dL (28.0-37.0); MCV 97.3 fL (80.0-100.0); MONOCYTES 9.5 % (1.0-8.0); PLATELET COUNT 324 thou/uL (150-400); POLYS 71.6 % (36.0-66.0); RBC 3.51 mil/uL (4.50-6.00); RDW 16.3 % (10.5-14.5); WBC 6.1 thou/uL (4.0-11.0)
[2020-11-04 20:26] LABS: ANION GAP 6 mmol/L (7-16); BUN 15 mg/dL (7-18); CALCIUM 8.6 mg/dL (8.5-10.1); CHLORIDE 104 mmol/L (98-107); CO2 28 mmol/L (21-32); GLUCOSE 241 mg/dL (74-106); POTASSIUM 4.4 mmol/L (3.5-5.1); SODIUM 138 mmol/L (136-145)
[2020-11-04 20:36] LABS: ALBUMIN 3.2 g/dL (3.4-5.0); SGOT 17 U/L (15-37); SGPT 27 U/L (16-63); TOTAL BILIRUBIN 0.2 mg/dL (0.2-1.0); TOTAL PROTEIN 7.4 g/dL (6.4-8.2); TROPONIN-I <0.06 ng/mL (<0.06)
[2020-11-04 20:42] LABS: APTT 24.3 Seconds (24.5-32.8); INR 0.98; PROTIME 10.7 Seconds (10.5-12.1)
[2020-11-04 21:57] VITALS: BP 149/79
--- NOTE | 2020-11-05 07:19 | EKG ---
[address] [place] [address] ELECTROCARDIOGRAM REPORT Name: DOMINICK MAXWELL YSABEL [id number] Admission: 11/04/20 Attend Phys: Discharge: 11/04/20 Date of : 43 Report #: [id number] [facility] ED Test Date: 2020-11-04 Test Time: 20:17:03 Pat Name: DOMINICK MAXWELL Department: Room: Gender: Crts: : 1945 Requested By: Chang Proctor Order Number: [id number] MD: Jonathan Lopez Measurements Intervals [place] Rate: 81 P: 46 CA: 144 QRS: 57 QRSD: 153 T: 31 QT: 401 QTc: 466 Interpretive Statements Sinus rhythm Right bundle branch block Baseline wander in lead(s) V3 Compared to ECG 05/13/2020 17:59:01 Sinus tachycardia no longer present Electronically Signed On 11-05-2020 7:18:51 CDT by Jonathan Lopez [email or web address] <ELECTRONICALLY SIGNED> By: Jonathan Lopez MD, [facility] 11/05/20 07 16 16 Jonathan Lopez MD, FACC /EPI
== END 2020-11-04 22:02 | disposition home or self-care (01) ==
LOC: ER 18:29
PROVIDERS: Emergency Medicine
DX: I63.9 Cerebral infarction, unspecified (principal); F17.210 Nicotine dependence, cigarettes, uncomplicated; J44.9 Chronic obstructive pulmonary disease, unspecified; Z86.2 Personal history of diseases of the blood and blood-forming organs and certain disorders involving the immune mechanism; Z98.890 Other specified postprocedural states; Z88.0 Allergy status to penicillin; Z88.8 Allergy status to other drugs, medicaments and biological substances

== ENCOUNTER → 2020-11-08 | Outpatient (CLI) | payer OTHER | LOC: SJCVCIMAG 09:46 | PROVIDERS: ATTEND Internal Medicine | DX: I65.23 Occlusion and stenosis of bilateral carotid arteries (principal) ==

== ENCOUNTER → 2020-11-12 | Outpatient (CLI) | payer OTHER | LOC: SJCVC 13:43 | PROVIDERS: ATTEND Internal Medicine | DX: R94.31 Abnormal electrocardiogram [ECG] [EKG] (principal); I45.10 Unspecified right bundle-branch block; I25.10 Atherosclerotic heart disease of native coronary artery without angina pectoris; I48.0 Paroxysmal atrial fibrillation; I10 Essential (primary) hypertension; I65.23 Occlusion and stenosis of bilateral carotid arteries; E11.9 Type 2 diabetes mellitus without complications; M06.9 Rheumatoid arthritis, unspecified; J43.1 Panlobular emphysema; E78.5 Hyperlipidemia, unspecified; H34.232 Retinal artery branch occlusion, left eye; C34.90 Malignant neoplasm of unspecified part of unspecified bronchus or lung; I81 Portal vein thrombosis; E78.00 Pure hypercholesterolemia, unspecified; F17.210 Nicotine dependence, cigarettes, uncomplicated; Z88.0 Allergy status to penicillin; Z79.82 Long term (current) use of aspirin; Z79.84 Long term (current) use of oral hypoglycemic drugs; Z79.899 Other long term (current) drug therapy; Z82.49 Family history of ischemic heart disease and other diseases of the circulatory system ==

== ENCOUNTER → 2020-12-19 | Outpatient (CLI) | payer OTHER | LOC: SJCVC 11:20 | PROVIDERS: ATTEND Internal Medicine | DX: I48.0 Paroxysmal atrial fibrillation (principal); I10 Essential (primary) hypertension; I48.19 Other persistent atrial fibrillation; I65.23 Occlusion and stenosis of bilateral carotid arteries; I25.10 Atherosclerotic heart disease of native coronary artery without angina pectoris; E11.9 Type 2 diabetes mellitus without complications; C34.90 Malignant neoplasm of unspecified part of unspecified bronchus or lung; J43.1 Panlobular emphysema; M06.9 Rheumatoid arthritis, unspecified; E78.00 Pure hypercholesterolemia, unspecified; F17.210 Nicotine dependence, cigarettes, uncomplicated; Z95.5 Presence of coronary angioplasty implant and graft; Z88.0 Allergy status to penicillin; Z79.82 Long term (current) use of aspirin; Z79.84 Long term (current) use of oral hypoglycemic drugs; Z79.899 Other long term (current) drug therapy; Z82.49 Family history of ischemic heart disease and other diseases of the circulatory system ==

== ENCOUNTER → 2021-01-14 | Outpatient (CLI) | payer OTHER | LOC: SJCVC 11:00 | PROVIDERS: ATTEND Internal Medicine | DX: I25.10 Atherosclerotic heart disease of native coronary artery without angina pectoris (principal); E78.5 Hyperlipidemia, unspecified; I48.0 Paroxysmal atrial fibrillation; I10 Essential (primary) hypertension; I65.23 Occlusion and stenosis of bilateral carotid arteries; E11.9 Type 2 diabetes mellitus without complications; C34.90 Malignant neoplasm of unspecified part of unspecified bronchus or lung; J43.1 Panlobular emphysema; E78.00 Pure hypercholesterolemia, unspecified; M06.9 Rheumatoid arthritis, unspecified; A41.9 Sepsis, unspecified organism; R65.20 Severe sepsis without septic shock; F17.210 Nicotine dependence, cigarettes, uncomplicated; Z79.82 Long term (current) use of aspirin; Z79.84 Long term (current) use of oral hypoglycemic drugs; Z79.899 Other long term (current) drug therapy; Z82.49 Family history of ischemic heart disease and other diseases of the circulatory system; Z88.0 Allergy status to penicillin ==

== ENCOUNTER → 2021-03-18 | Outpatient (CLI) | payer OTHER | LOC: CAT 11:44 | PROVIDERS: ATTEND Internal Medicine | DX: J44.9 Chronic obstructive pulmonary disease, unspecified (principal); R91.8 Other nonspecific abnormal finding of lung field; I25.10 Atherosclerotic heart disease of native coronary artery without angina pectoris; I70.0 Atherosclerosis of aorta; I27.20 Pulmonary hypertension, unspecified; M25.78 Osteophyte, vertebrae ==

== ENCOUNTER 2021-05-30 21:40 | Inpatient (IN) | payer OTHER ==
[~2021-05-30] VITALS: Ht 190.5 cm; Wt 91.6 kg
[2021-05-30 21:45] VITALS: BP 109/70
[2021-05-30 22:25] LABS: ABSOLUTE NEUTROPHILS 9.5 thou/uL (1.4-8.2); BASOPHILS 0.5 % (0.0-2.0); EOSINOPHILS 1.8 % (0.0-3.0); HEMATOCRIT 33.2 % (42.0-52.0); HEMOGLOBIN 11.2 gm/dL (14.0-18.0); LYMPHOCYTES 6.3 % (24.0-44.0); MCH 32.5 pg (26.0-34.0); MCHC 33.7 g/dL (28.0-37.0); MCV 96.5 fL (80.0-100.0); MONOCYTES 13.6 % (1.0-8.0); PLATELET COUNT 346 thou/uL (150-400); POLYS 77.8 % (36.0-66.0); RBC 3.44 mil/uL (4.50-6.00); RDW 15.4 % (10.5-14.5); WBC 12.3 thou/uL (4.0-11.0)
[2021-05-30 22:34] LABS: APTT 29.6 Seconds (24.5-32.8); INR 1.04; PROTIME 11.3 Seconds (10.5-12.1)
[2021-05-30 22:39] LABS: CALCIUM 8.8 mg/dL (8.5-10.1); CREATININE 0.9 mg/dL (0.7-1.3); POTASSIUM 4.4 mmol/L (3.5-5.1)
[2021-05-30 22:47] LABS: ALBUMIN 2.6 g/dL (3.4-5.0); TOTAL BILIRUBIN 0.3 mg/dL (0.2-1.0); TOTAL PROTEIN 7.4 g/dL (6.4-8.2)
[2021-05-31 07:47] LABS: HEMATOCRIT 33.8 % (42.0-52.0); HEMOGLOBIN 11.3 gm/dL (14.0-18.0); MCH 33.1 pg (26.0-34.0); MCHC 33.4 g/dL (28.0-37.0); RBC 3.41 mil/uL (4.50-6.00); RDW 15.3 % (10.5-14.5); WBC 10.3 thou/uL (4.0-11.0)
[2021-05-31 07:52] LABS: CALCIUM 8.4 mg/dL (8.5-10.1); CREATININE 0.8 mg/dL (0.7-1.3); POTASSIUM 4.2 mmol/L (3.5-5.1)
[2021-05-31 07:59] LABS: CHOLESTEROL 175 mg/dL (<200); HDL CHOLESTEROL 49 mg/dL (>40); LDL CHOLESTEROL 115 mg/dL (<100); TC:HDL 3.6 Ratio (Not establshd); TRIGLYCERIDE 58 mg/dL (<150); VLDL 12 mg/dL (<40)
[2021-05-31 14:07] VITALS: BP 17/98
[2021-05-31 19:31] VITALS: BP 175/113
--- NOTE | 2021-06-01 03:50 | NUR ---
PT AMBULATING IN ROOM INDEPENDENTLY AND IS TOLERATING WELL. VOIDING PER URINAL. DENIES NEED FOR PAIN MEDICATION. RESTING COMFORTABLY. NO NEEDS VOICED. CALL LIGHT WITHIN REACH. FREQUENT OBSERVATION.
[2021-06-01 05:36] LABS: GLYCOHEMOGLOBIN (HGB A1C) 7.7 % (4.8-5.6)
[2021-06-01 07:20] VITALS: BP 147/79
--- NOTE | 2021-06-01 10:22 | NUR ---
PATIENT REFUSING TO WEAR TELEMETRY MONTIOR. DR GREGORY BURTON
[2021-06-01 15:26] VITALS: BP 171/108
[2021-06-01 19:33] VITALS: BP 180/103
[2021-06-02 06:13] LABS: ABSOLUTE NEUTROPHILS 8.1 thou/uL (1.4-8.2); BASOPHILS 0.1 % (0.0-2.0); HEMOGLOBIN 11.2 gm/dL (14.0-18.0); LYMPHOCYTES 4.5 % (24.0-44.0); MCHC 33.8 g/dL (28.0-37.0); MCV 97.8 fL (80.0-100.0); MONOCYTES 6.6 % (1.0-8.0); PLATELET COUNT 402 thou/uL (150-400); POLYS 88.8 % (36.0-66.0); RBC 3.38 mil/uL (4.50-6.00); RDW 15.2 % (10.5-14.5); WBC 9.1 thou/uL (4.0-11.0)
--- NOTE | 2021-06-02 07:36 | EKG ---
[address] [place] [address] ELECTROCARDIOGRAM REPORT Name: DOMINICK MAXWELL YSABEL Room #: 437-P ADM IN M.R.#: [id number] Admission: 05/31/21 Attend Phys: Akin Joiner MD Discharge: Date of : 43 Report #: [id number] [facility] ED Test Date: 2021-05-30 Test Time: 23:25:50 Pat Name: DOMINICK MAXWELL Department: Room: [facility] Gender: M Traffic Circuit Engineer: george : 1945 Requested By: Timur Friend Order Number: [id number] MD: Jonathan Lopez Measurements Intervals [place] Rate: 101 P: 51 ND: 139 QRS: 62 QRSD: 148 T: -15 QT: 360 QTc: 467 Interpretive Statements Sinus tachycardia Right bundle branch block Borderline ST depression, lateral leads Compared to ECG 11/04/2020 20:17:03 ST (T wave) deviation now present Sinus rhythm no longer present Electronically Signed On 06-02-2021 7:36:10 BPM SOLUTION ARCHITECT by Jonathan Lopez [email or web address] <ELECTRONICALLY SIGNED> By: Jonathan Lopez MD, [facility] 06/02/21 0736 2325 2325 Jonathan Lopez MD, [facility] /EPI
[2021-06-02 08:13] VITALS: BP 142/88
[2021-06-02 11:27] VITALS: BP 142/88
--- NOTE | 2021-06-02 11:52 | NUR ---
met with patient and at bedside. Patient reports he resides at home in mobile home with a ramp entrance. Patient has a rolator walker as needed. 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 He does not drive hx of CVA. drives. Has rec HH in past and agreeable to use again. No preference for HH agency. PCP was Dr Almanzar, now Dr Mendoza.
[2021-06-02] MEDS ORDERED: IPRAT-ALBUT 0.5-3 ML INH (12:44)
[2021-06-02] MEDS ORDERED: PREDNISONE 20 M20 M1 PO (12:44)
[2021-06-02] MEDS ORDERED: MUCINEX600 MG PO (12:44)
[2021-06-02] MEDS ORDERED: ACETAMINOPHEN325 M1 PO (12:44)
[2021-06-02] MEDS ORDERED: MIRALAX17 GM PO (12:44)
[2021-06-02 12:59] VITALS: BP 142/88
[2021-06-02 13:38] VITALS: BP 142/88
--- NOTE | 2021-06-02 14:34 | NUR ---
PATIENT RESTING IN ROOM. ON ROOM AIR NO COMPLAINTS AT THIS TIME. VITALS WITHIN NORMALS LIMITS. WAITING ON HOME HEALTH TO BE SET UP THEN PT WILL DISCHARGE HOME.
[2021-06-02 15:53] VITALS: BP 159/91
== END 2021-06-02 16:00 | disposition home or self-care (01) | DRG 871 ==
LOC: ER 21:40 → 4S 05-31 01:59 → EROBS 05-31 01:59 → 4S 05-31 13:43
PROVIDERS: Emergency Medicine; Nurse Practitioner Family; ADMIT Internal Medicine; ATTEND Internal Medicine
DX: A41.9 Sepsis, unspecified organism (principal); J18.9 Pneumonia, unspecified organism; J96.01 Acute respiratory failure with hypoxia; E11.9 Type 2 diabetes mellitus without complications; Z20.822 Contact with and (suspected) exposure to COVID-19; I25.10 Atherosclerotic heart disease of native coronary artery without angina pectoris; I48.0 Paroxysmal atrial fibrillation; E78.5 Hyperlipidemia, unspecified; J43.9 Emphysema, unspecified; Z96.652 Presence of left artificial knee joint; M06.9 Rheumatoid arthritis, unspecified; I10 Essential (primary) hypertension; I48.91 Unspecified atrial fibrillation; F17.210 Nicotine dependence, cigarettes, uncomplicated; D63.8 Anemia in other chronic diseases classified elsewhere; R53.81 Other malaise; Z86.16 Personal history of COVID-19; Z95.5 Presence of coronary angioplasty implant and graft; Z88.0 Allergy status to penicillin; Z82.49 Family history of ischemic heart disease and other diseases of the circulatory system; Z82.69 Family history of other diseases of the musculoskeletal system and connective tissue; Z71.6 Tobacco abuse counseling; Z79.52 Long term (current) use of systemic steroids
CPT/HCPCS: 10100

== ENCOUNTER → 2021-06-23 | Outpatient (CLI) | payer OTHER ==
[~2021-06-23] MED LIST changes: +IPRAT-ALBUT 0.5-3 ML INH; +MIRALAX17 GM PO; +MUCINEX600 MG PO; +PREDNISONE 20 M20 M1 PO
== END ==
LOC: RAD 13:38
PROVIDERS: ATTEND Internal Medicine
DX: J44.9 Chronic obstructive pulmonary disease, unspecified (principal)

== ENCOUNTER → 2021-07-14 | Outpatient (CLI) | payer OTHER | LOC: RAD 14:00 | PROVIDERS: ATTEND Family Medicine | DX: M51.36 Other intervertebral disc degeneration, lumbar region (principal); M41.86 Other forms of scoliosis, lumbar region; M48.061 Spinal stenosis, lumbar region without neurogenic claudication; M24.152 Other articular cartilage disorders, left hip; M25.78 Osteophyte, vertebrae ==